=== PATIENT | female | born 1995 | race Caucasian/White ===

== ENCOUNTER 2025-06-22 10:33 | Outpatient (OUT) | payer OTHER, SELFPAY ==
[2025-06-22 11:54] LABS: Hematocrit 37.2 % (36.0-48.0); Hemoglobin 12.9 g/dL (12.0-16.0); Immature Granulocytes Abs Auto 0.04 10^3/uL (0.00-0.03); Immature Granulocytes Pct Auto 0.5 % (0.0-0.5); Lymphocytes Absolute Auto 1.8 10^3/uL (1.2-3.8); Mean Corpuscular HGB Conc 34.7 g/dL (29.9-35.2); Mean Corpuscular Hemoglobin 32.6 pg (26.7-34.0); Mean Corpuscular Volume 93.9 fL (81.0-99.0); Platelet Count 205 10^3/uL (150-450); Red Blood Count 3.96 10^6/uL (4.20-5.40); White Blood Count 7.6 10^3/uL (4.0-11.0)
[2025-06-22 12:34] LABS: Glucose 1 Hour 144 mg/dL (<130); Thyroid Stimulating Hormone 0.871 uIU/mL (0.358-3.740)
== END 2025-06-22 10:34 | disposition home or self-care (01) ==
LOC: LAB 10:39
PROVIDERS: Visit Provider Obstetrics & Gynecology
DX: T14.8XXA Other injury of unspecified body region, initial encounter (principal); Z13.1 Encounter for screening for diabetes mellitus
CPT/HCPCS: 36415; 82950; 84439; 84443; 85025

== ENCOUNTER 2025-06-28 09:33 | Outpatient (OUT) | payer OTHER, SELFPAY ==
--- OUTSIDE RECORDS SUMMARY | 2025-06-06 10:10 | XMS_ITS | Encounter Summary ---
Author Organization [facility] Address [address] [place] [address] Care Team Providers Care Acid Purification Equipment Operator Name Role Phone María Scales MD Primary Care Provider [phone] Heydi Meyer MD, IBCLC Unavailable [phone] Reason for Visit * Reason Comments Routine Visit Encounter Details Date Type Department Care Team ([facility] Contact Info) Description 06/06/2025 10:10 AM EDT Routine [facility] [address] [facility] [place] [phone] Diza Mathis DO [address] [facility] [place] [address] 22 weeks gestation of ([facility]); Second trimester ([facility]); Diabetes mellitus screening Social History Tobacco Use Types Packs/Day Years Used Date Smoking Tobacco: Never Smokeless Tobacco: Never Alcohol Use Standard Drinks/Week Comments Never 0 (1 standard drink = 0.6 oz pur e alcohol) caffeine intake : none Estimated Date of Delivery Comme nts Yes 10/08/2025 Based on last me nstrual period of 01/01/2025 Sex and Gender Information Value Date Recorded Sex Assigned at Not on file Legal Sex Female 7:39 PM EDT Gender Identity Female 01/07/2023 7:39 PM EDT Sexual Orientation Not on file documented as of this encounter Last Filed Vital Signs Vital Sign Reading Time Taken Comments Blood Pressure 120/70 06/06/2025 10:37 AM EDT Pulse - - Temperature - - Respiratory Rate - - Oxygen Saturation - - Inhaled Oxygen Concentration - - Weight 68.2 kg (150 lb 6.4 oz) 06/06/2025 10:37 AM EDT Height - - Body Mass Index 25.82 03/13/2025 2:47 PM EDT documented in this encounter Progress Notes * Sara Valentino LPN - 06/06/2025 10:10 AM EDT Reason for Appointment: Patient ID: Rajani Callejas is a 29 y.o. female who presents for Routine Visit Patient presents today for Return OB appointment. MEDICATIONS Current Outpatient Medications Medication Instructions Vit-Fe Fumarate-FA ( Vitamins) 28-0.8 MG tablet 1 tablet, Oral, Daily ALLERGIES Allergies Allergen Reactions Cephalexin Swelling and Anaphylaxis Throat swells up Other Reaction(s): face swelling, Swelling of Lip/Tongue/Throat, Swelling of Lip/Tongue/Throat, anaphylaxis, Unknown Cefazolin Swelling Other Reaction(s): Swelling Corylus Hives Metronidazole Headache PROBLEMS Active Ambulatory Problems Diagnosis Date Noted Anovulation 07/21/2023 Anxiety and depression 07/21/2023 Anxiety disorder, unspecified 07/21/2023 ADAL (generalized anxiety disorder) 07/21/2023 ADHD (attention deficit hyperactivity disorder), inattentive type 07/21/2023 Attention deficit hyperactivity disorder (ADHD), combined type 07/21/2023 Dysmenorrhea 07/21/2023 Endometriosis 07/21/2023 Female infertility associated with anovulation 07/21/2023 Fibrocystic breast, right 07/21/2023 Heavy menstrual bleeding 07/21/2023 Intranasal mass 07/21/2023 Major depressive disorder, single episode, unspecified 07/21/2023 Migraine with aura 07/01/2022 Migraine without aura and without status migrainosus, not intractable 07/21/2023 Moderate episode of recurrent major depressive disorder (HCC) 07/21/2023 Nasal granuloma 07/21/2023 Palpitations 07/01/2022 Post-operative nausea and vomiting 07/01/2022 Raynaud's phenomenon without gangrene 07/21/2023 Psychophysiological insomnia 10/12/2023 MARCIO (obstructive sleep apnea) 06/06/2024 Resolved Ambulatory Problems Diagnosis Date Noted No Resolved Ambulatory Problems Past Medical History: Diagnosis Date ADHD (attention deficit hyperactivity disorder) COVID-19 Varicella zoster HISTORY PAST MEDICAL HISTORY SOCIAL HISTORY Past Medical History: Diagnosis Date ADHD (attention deficit hyperactivity disorder) COVID-19 Endometriosis Varicella zoster Social History Tobacco Use Smoking status: Never Smokeless tobacco: Never Vaping Use Vaping status: Never Used Substance Use Topics Alcohol use: Never Comment: caffeine intake : none Drug use: Never FAMILY HISTORY Family History Problem Relation Name Age of Onset Heart disease Brother 1 brother had heart surgery at age 6 No Known Problems Son Colon cancer Maternal Grandmother Melanoma Maternal Grandfather Heart disease Maternal Grandfather Stroke Maternal Grandfather Cancer Maternal Grandfather Stroke Paternal Grandmother Heart disease Paternal Grandfather Breast cancer Father's Sister 42 SURGICAL HISTORY Past Surgical History: Procedure Laterality Date COLONOSCOPY 2013 CYSTOSCOPY EXCISION 01/30/2021 left intra nasal mass INTRAUTERINE DEVICE INSERTION Mirena LAPAROSCOPY ABDOMEN DIAGNOSTIC endometriosis OTHER SURGICAL HISTORY 2012 elective VAGINAL DELIVERY 2019 WISDOM TOOTH EXTRACTION REVIEW OF SYSTEMS Review of Systems: Review of Systems Constitutional: Negative. HENT: Negative. Eyes: Negative. Respiratory: Negative. Cardiovascular: Negative. Gastrointestinal: Negative. Genitourinary: Negative. Musculoskeletal: Negative. Skin: Negative. Neurological: Negative. All other systems reviewed and are negative. Hematological: Negative. Endocrine: Negative. Allergic/Immunologic: Negative. OBJECTIVE Objective: Physical Exam Constitutional: Appearance: Normal appearance. She is well-developed. Cardiovascular: Rate and Rhythm: Normal rate and regular rhythm. Pulmonary: Effort: Pulmonary effort is normal. Breath sounds: Normal breath sounds. Abdominal: General: Bowel sounds are normal. There is no distension. Palpations: Abdomen is soft. Tenderness: There is no abdominal tenderness. There is no guarding or rebound. Musculoskeletal: General: No swelling. Normal range of motion. Right lower leg: No edema. Left lower leg: No edema. Neurological: Mental Status: She is alert and oriented to person, place, and time. Skin: General: Skin is warm and dry. Psychiatric: Mood and Affect: Mood normal. Behavior: Behavior normal. Vitals and nursing note reviewed. Exam conducted with a senior asset manager present. Vitals: Estimated body mass index is 25.82 kg/m?? as calculated from the following: Height as of 03/13/25: 5' 4 . Weight as of this encounter: 150 lb 6.4 oz. BP: 120/70 Patient's last menstrual period was 01/01/2025. ASSESSMENT & PLAN ICD-10-CM 1. 22 weeks gestation [facility] Z3A.22 POCT urinalysis dipstick manually resulted 2. Second trimester ([facility]) Z34.92 POCT urinalysis dipstick manually resulted 3. Diabetes mellitus screening Z13.1 CBC Glucose tolerance, 1 hour CBC Glucose tolerance, 1 hour Patient presents today for a routine obstetrics appointment. Patient is currently 22w2d with a Estimated Date of Delivery: 10/08/25. Pt discussed stressors about weight with . Pt given glucola and cbc orders to have obtained between 24-28 weeks. Pt to return in 4 weeks for scheduled ob appt. Documented by Sara Valentino LPN on behalf of: Diaz Mathis DO documented in this encounter Plan of Treatment Upcoming Encounters Date Type Department Care Team (Late st Contact Info) Description 07/04/2025 10:30 AM EDT Routine [facility] [place] [facility] [address] [facility] [place] [address] Melba Goff PA [address] [facility] [place] [address] 07/17/2025 9:30 AM EDT Office Visit LACY ESQUIVEL [address] SHAINA D [address] [phone] Maame Escobar DO [address] [phone] Scheduled Orders Name Type Priority Associated Diagnoses Orde r Schedule CBC Lab Routine Diabetes mellitus screening Expected: 06/06/2025 (Approximate), Expires: 06/06/2026 Glucose tolerance, 1 hour Lab Routine Diabetes mellitus screening Expected: 06/06/2025 (Approximate), Expires: 06/06/2026 documented as of this encounter Procedures Procedure Name Priority Date/Time Associated Diagnosis Comments POCT URINALYSIS DIPSTICK Routine 06/06/2025 10:42 AM EDT 22 weeks gestation of ([facility]) Second trimester ([facility]) documented in this encounter Results * POCT urinalysis dipstick manually resulted (06/06/2025 10:42 AM EDT) Color, UA Yellow Clarity, UA Clear Glucose, UA Negative Negative - 2000(110) ++++ mg/dL Bilirubin, UA Negative Negative - 4(70) +++ mg/dL Ketones, UA Negative Negative - 160(16) ++++ mg/dL Spec Grav, UA 1.010 1 - 1.03 Blood, UA Negative Negative - 50 Ortega/mcL pH, UA 7.5 5 - 9 Protein, UA Negative Negative - 2000(20) ++++ mg/dL Urobilinogen, UA 1.0 0.2 - 12 mg/dL Leukocytes, UA Negative Negative - 500+++ Fidencio/mcL Nitrite, UA Negative Negative - Positive Urine 06/06/2025 10:4 2 AM EDT Diaz Mathis DO POINT OF CARE TEST ENTER/EDIT OR DERABLES Final Result documented in this encounter Visit Diagnoses Diagnosis 22 weeks gestation of ([facility]) Second trimester ([facility]) state, incidental Diabetes mellitus screening Screening for diabetes mellitus documented in this encounter Care Teams Acid Purification Equipment Operator Relationship Specialty Start Date End Date María Scales MD [address] [place] [address] PCP - General Family Medicine 03/03/23 Heydi Meyer MD, IBCLC [address], [place] [id number] Family Medicine 10/12/23 documented as of this encounter
--- OUTSIDE RECORDS SUMMARY | 2025-06-28 09:42 | XMS_ITS | Encounter Summary ---
Author Organization [facility] Address [address] [facility] [place] [address] Care Team Providers Care Motorized Squad Lieutenant Name Role Phone María Scales MD Primary Care Provider [phone] Heydi Meyer MD, IBCLC Unavailable [phone] Encounter Details Date Type Department Care Team (Late Contact Info) Description 06/27/2025 Telephone [facility] Lonnie ESQUIV[facility] [address] [place] [address] [place] [phone] Kellee Whipple MA Social History Tobacco Use Types Packs/Day Years [...] on file documented as of this encounter Miscellaneous Notes * Telephone Encounter - Kellee Whipple MA - 06/27/2025 9:22 AM EDT Called pt to discuss results. Notified pt of failed 1hr and need for 3hr. Pt states she reviewed results with family member who is a nurse and she had stated the results were normal except for RBC. Notified pt that our threshold for 1hr is 130 and her level came back 144 so we would need additionaltesting to rule out Gestational Diabetes. Also discussed that everything we check for the CBC had come back normal and if she had any additional questions we would need to contact Dr. Mathis. PVU. Order sent to [facility]. documented in this encounter Plan of Treatment Upcoming Encounters Date Type Department Care Team (Late st Contact Info) Description 07/04/2025 10:30 AM EDT Routine [facility] Lonnie [facility]QU[facility] [address] [facility] [place] [phone] Melba Goff PA [address] [facility] [place] [address] 07/17/2025 9:30 AM EDT Office Visit [facility] Clive ESQUIVEL [address] SHAINA D [address] [phone] Maame Escobar DO [address] [phone] Scheduled Orders Name Type Priority Associated Diagnoses Orde r Schedule Glucose tolerance, 3 hours Lab Routine Elevated glucose tolerance test Expected: 06/27/2025 (Approximate), Expires: 06/27/2026 documented as of this encounter Visit Diagnoses Diagnosis Elevated glucose tolerance test Impaired glucose tolerance test documented in this encounter Care Teams Motorized Squad Lieutenant Relationship Specialty Start Date End Date María Scales MD [address] [place], [place] [id number] PCP - General Family Medicine 03/03/23 Heydi Meyer MD, IBCLC [address] [place], [place] [id number] Family Medicine 10/12/23 documented as of this encounter
--- OUTSIDE RECORDS SUMMARY | 2025-06-28 09:42 | XMS_ITS | Clinical Summary ---
Author Organization [facility] Address [address] [place] [id number] Care Team Providers Care Roll Up Guider Operator Name Role Phone María Scales MD Primary Care Provider [phone] Allergies Active Allergy Reactions Criticality Noted Date Comments Cephalexin Swelling 09/07/2017 Throat swells up Medications ASCORBIC ACID/VITAMIN E/BIOTIN (HAIR, SKIN, NAILS WITH BIOTIN ORAL)Indication s:Dysuria Take by mouth once daily. Active levonorgestrel (MIRENA) 20 mcg/24 hours (5 yrs) 52 mg IUD 1 Each by INTRAUTERINE route one time only. Active vitamin B complex (B COMPLEX 1 ORAL) Take by mouth. Active Zinc 50 mg tab Take by mouth. Active omega 4-fmr-dtu-fish oil (FISH OIL) 100-160-1,000 mg cap Take by mouth. Activ e phenazopyridine (PYRIDIUM) 200 mg tablet Take 1 tablet by mouth three times a day as needed. 6 tablet 5 Active Active Problems Problem Noted Date Diagnosed Date Migraine with aura 07/01/2022 Assessment & Plan (07/01/2022 2:02 PM EDT): Assessment: states has migraines 1- 2 times weekly. She was given a PRN medication but cant remember name Palpitations 07/01/2022 Assessment & Plan (07/01/2022 2:45 PM EDT): Assessment: Hx of palpations states had negative cardiac work up at [facility]- records reviewed and scanned Post-operative nausea and vomiting 07/01/2022 Assessment & Plan (07/01/2022 2:03 PM EDT): Assessment: states she vomits after every surgery - request pre-op medications Immunizations Immunization Administration Dates Next Due Haemophilus influenzae b (Hb OC) vaccine, 4-dose series (HIBTITER) 06/02/1997 diphtheria tetanus pertussis (DTaP) vaccine, unspecified formulation 11/25/2001,06/02/1997 diphtheria tetanus pertussis-Haemophilus influenzae b (DTP-Hib) vaccine (TETRAMUNE) 05/10/1996,03/07/1996,1995 hepatitis B (HepB) vaccine, 3-dose series, age 0 yr - 19 yr (ENGERIX B-PEDS, RECOMBIVAX HB-PEDS) 05/10/1996,1995,1995 measles mumps rubella (MMR) vaccine (M-M-R II, PRIORIX) 06/24/2001,11/18/1996 novel influenza (B0Q3-23) va ccine, live, nasal 09/03/2009 poliovirus (IPV) vaccine, in activated (IPOL) 06/24/2001 poliovirus (OPV) vaccine, tr ivalent, live, oral (ORIMUNE) 06/02/1997,05/10/1996,03/07/1996,1995 tetanus diphtheria pertussis (Tdap) vaccine, age 7+ yr (ADACEL, BOOSTRIX) 02/10/2018,02/07/2017 Family History Medical History Relation Comments Anesthesia Problems No Family History Social History Tobacco Use Types Packs/Day Years Used Date Smoking Tobacco: Never Smokeless Tobacco: Never Tobacco Cessation:Counseling Given: Not Answered Alcohol Use Standard Drinks/Week Comments Yes 0 (1 standard drink = 0.6 oz pure alcohol) twice weekly; 2-3 drinks per sitting. Area Deprivation Index Answer Date Charles rded National Score (1-100), lower number is lower ri sk 57 11/14/2024 State Score (1-10), lower number is lower risk 3 11/14/2024 Data from: https://www.neighborhoodatlas.medicine.[facility].edu/. Last address used for calculation [address] 11/14/2024 Comments No Sex and Gender Information Value Date Recorded Sex Assigned at Not on file Legal Sex Female 2:56 PM EST Gender Identity Not on file Sexual Orientation Not on file Last Filed Vital Signs Vital Sign Reading Time Taken Comments Blood Pressure 126/71 11/10/2024 1:59 PM EST Pulse 79 11/10/2024 1:59 PM EST Temperature 37.1 C (98.8 F) 11/10/2024 1:59 PM EST Respiratory Rate 18 11/10/2024 1:59 PM EST Oxygen Saturation 100% 11/10/2024 1:59 PM EST Inhaled Oxygen Concentration - - Weight 58.1 kg (128 lb) 07/01/2022 1:36 PM EDT Height 162.6 cm (5' 4 ) 07/01/2022 1:36 PM EDT Body Mass Index 21.97 07/01/2022 1:36 PM EDT Plan of Treatment Health Maintenance Due Date Last Done Comments Anxiety Screening 2013 Depression Screening 2013 HIV Screening 2013 Hepatitis C Screening 2013 Cervical Cancer Screening 2016 HPV Vaccine (1 - 3-dose SCDM series) 2022 Influenza Vaccine (#1) 2025 09/03/2009 DTaP,Tdap,Td Vaccine (8 - Td or Tdap) 02/11/2028 02/10/2018, 02/07/2017, 11/25/2001, Additional history exists Hepatitis B Vaccine Completed 05/10/1996, 1995, 1995 Insurance [employer]ICAID [facility] CHOICE PLUS Care Teams Roll Up Guider Operator Relationship Specialty Start Date End Date María Scales MD [address] [place] [address] PCP - General Family Medicine 07/01/22
--- OUTSIDE RECORDS SUMMARY | 2025-06-28 09:42 | XMS_ITS | Encounter Summary ---
Author Organization [facility] Address [address] [facility] [place] [address] Care Team Providers Care Court Recorder Name Role Phone María Scales MD Primary Care Provider [phone] Heydi Meyer MD, IBCLC Unavailable + [phone] Encounter Details Date Type Department Care Team (Late Contact Info) Description 10/28/2024 Abstract [facility] Medicine [address] [place] [phone] Ania Oneil, SWATHI [address] [place] [address] Social History Tobacco Use Types Packs/Day Years Used Date Smoking Tobacco: Never Smokeless Tobacco: Never Alcohol Use Standard Drinks/Week Comments Never 0 (1 standard drink = 0.6 oz pur e alcohol) caffeine intake : none Comments No Sex and Gender Information Value Date Recorded Sex Assigned at Not on file Legal Sex Female 7:39 PM EDT Gender Identity Female 01/07/2023 7:39 PM EDT Sexual Orientation Not on file documented as of this encounter Plan of Treatment Upcoming Encounters Date Type Department Care Team (Late Contact Info) Description 07/04/2025 10:30 AM EDT Routine [facility] [address] [place] [address] Melba Goff PA [address] [facility] [place] [address] 07/17/2025 9:30 AM EDT Office Visit [facility] [address] [phone] Maame Escobar, DO [address] [facility] [address] [place] [phone] documented as of this encounter Visit Diagnoses Not on filedocumented in this encounter Care Teams Court Recorder Relationship Specialty Start Date End Date María Scales MD [address] [place] [address] PCP - General Family Medicine 03/03/23 Heydi Meyer MD, IBCLC [address] [place] [address] Family Medicine 10/12/23 documented as of this encounter
--- OUTSIDE RECORDS SUMMARY | 2025-06-28 09:42 | XMS_ITS | Encounter Summary ---
Author Organization [facility] Address [address] [place] [address] Care Team Providers Care Perfect Binder Setter Name Role Phone Beckie Veras Jovany MODEL AND PATTERN SUPERVISOR Unavailable [phone] María Scales MD Primary Care Provider [phone] Heydi Meyer MD, IBCLC Unavailable + [phone] Encounter Details Date Type Department Care Team (Late Contact Info) Description 06/03/2023 Abstract [facility] [address] [facility] [address] [facility] [address] [place] [phone] Maame Escobar, DO [address] [phone] Social History Tobacco Use Types Packs/Day Years Used Date Smoking Tobacco: Never Smokeless Tobacco: Never Tobacco Cessation:Counseling Given: Not Answered Alcohol Use Standard Drinks/Week Comments Never 0 (1 standard drink = 0.6 oz pur e alcohol) caffeine intake : none Comments Unknown Sex and Gender Information Value Date Recorded Sex Assigned at Not on file Legal Sex Female 7:39 PM EDT Gender Identity Female 01/07/2023 7:39 PM EDT Sexual Orientation Not on file documented as of this encounter Plan of Treatment Upcoming Encounters Date Type Department Care Team (Late Contact Info) Description 07/04/2025 10:30 AM EDT Routine [facility] [address] [facility] [place] [phone] Melba Goff PA [address] [facility] [address] [place], [place] [id number] 07/17/2025 9:30 AM EDT Office Visit [facility] [address] SHAINA D [address] [address] Maame Escobar DO [address] [phone] documented as of this encounter Visit Diagnoses Not on filedocumented in this encounter Care Teams Perfect Binder Setter Relationship Specialty Start Date End Date Beckie Veras, SWATHI [address] [place] [address] PCP - [facility] 01/24/23 4 María Scales MD [address] [place] [address] PCP - General Family Medicine 03/03/23 Heydi Meyer MD, IBCLC [address] [place] [address] Family Medicine 10/12/23 documented as of this encounter
--- OUTSIDE RECORDS SUMMARY | 2025-06-28 09:42 | XMS_ITS | Encounter Summary ---
Author Organization [facility] Address [address] [place] [address] Care Team Providers Care Assorter Laundry Name Role Phone María Scales MD Primary Care Provider [phone] Heydi Meyer MD, IBCLC Unavailable + [phone] Encounter Details Date Type Department Care Team (Late Contact Info) Description 06/09/2024 Abstract [facility] Medicine [address] [place] [phone] Ania Oneil, SWATHI [address] [place] [address] Social History Tobacco Use Types [...] AM EDT Routine [facility] [address] [facility] [place] [address] Melba Goff PA [address] [facility] [place] [address] 07/17/2025 9:30 AM EDT Office Visit [facility] [address] [phone] Maame Escobar, DO [address] [facility] [address] [place] [phone] documented as of this encounter Visit Diagnoses Not on filedocumented in this encounter Care Teams Assorter Laundry Relationship Specialty Start Date End Date María Scales MD [address] [place] [address] PCP - General Family Medicine 03/03/23 Heydi Meyer MD, IBCLC [address] [place] [address] Family Medicine 10/12/23 documented as of this encounter
--- OUTSIDE RECORDS SUMMARY | 2025-06-28 09:42 | XMS_ITS | Encounter Summary ---
Author Organization [facility] Address [address] [facility] [place] [address] Care Team Providers Care Jitterbug Operator Name Role Phone María Scales MD Primary Care Provider + [phone] Heydi Meyer MD, IBCLC Unavailable + [phone] Encounter Details Date Type Department Care Team (Late Contact Info) Description 06/20/2025 Telephone [facility] [address] [place] [address] Diaz Mathis DO [address] [place], [place] [phone] Social History Tobacco Use Types Packs/Day Years [...] encounter Miscellaneous Notes * Telephone Encounter - Carolyn Dawson LPN - 06/20/2025 10:50 AM EDT Per provider he would like the patient to have labs obtained for CBC, TSH and Free T4. Patient was made aware of this and these were sent to [facility] in new orders. * Telephone Encounter - Carolyn Dawson LPN - 06/20/2025 10:09 AM EDT I am currently 6 months and my next appointment is not until the 9 at 1030, but I wantedto call just because I have some concerns I have I have some bruising on the back of my thighs, like Big purple bruises on both legs and kind of the same pattern in shape. And I am just kind of confused as to what it is or if I need medical attention. If you could give me a call back, that would be great for numbers [phone]. Thanks. Patient call returned and she states that she did notice this yesterday these are right under butt cheeks and there is no pain, swelling or redness around around but she does have numbness and tingling in left arm and leg. Patient was advised would get with and return her call she does have CBC and 1 hour glucose test this week. documented in this encounter Plan of Treatment Upcoming Encounters Date Type Department Care Team (Late st Contact Info) Description 07/04/2025 10:30 AM EDT Routine [facility] [address] [facility] [place] [phone] Melba Goff PA [address] [facility] [place] [address] 07/17/2025 9:30 AM EDT Office Visit [facility] [address] SHAINA Sofia [address] [phone] Maame Escobar DO [address] [phone] Scheduled Orders Name Type Priority Associated Diagnoses Orde r Schedule CBC and differential Lab Routine Bruising Expected: 06/20/2025 (Approximate), Expires: 06/20/2026 TSH Lab Routine Bruising Expected: 06/20/2025 (Approximate), Expires: 06/20/2026 T4, free Lab Routine Bruising Expected: 06/20/2025 (Approximate), Expires: 06/20/2026 documented as of this encounter Visit Diagnoses Diagnosis Bruising Contusion of unspecified site documented in this encounter Care Teams Jitterbug Operator Relationship Specialty Start Date End Date María Scales MD [address] [place] [address] PCP - General Family Medicine 03/03/23 Heydi Meyer MD, IBCLC [address] [place] [address] Family Medicine 10/12/23 documented as of this encounter
--- OUTSIDE RECORDS SUMMARY | 2025-06-28 09:42 | XMS_ITS | Encounter Summary ---
Author Organization [facility] Address [address] [facility] [place] [address] Care Team Providers Care Bit Shaver Name Role Phone María Scales MD Primary Care Provider [phone] Heydi Meyer MD, IBCLC Unavailable + [phone] Encounter Details Date Type Department Care Team (Late Contact Info) Description 03/27/2025 Abstract [facility] [address] [facility] [place] [phone] Diaz Mathis DO [address] [facility] [address] [place], [facility] Social History Tobacco Use Types Packs/Day Years [...] 10:30 AM EDT Routine [facility] [address] [place] [phone] Melba Goff PA [address] [facility] [address] [place], [place] [phone] 07/17/2025 9:30 AM EDT Office Visit [facility] [address] SHAINA D [address] [address] Maame Escobar DO [address] [phone] documented as of this encounter Visit Diagnoses Not on filedocumented in this encounter Care Teams Bit Shaver Relationship Specialty Start Date End Date María Scales MD [address] [place] [address] PCP - General Family Medicine 03/03/23 Heydi Meyer MD, IBCLC [address] [place], [place] [phone] Family Medicine 10/12/23 documented as of this encounter
--- OUTSIDE RECORDS SUMMARY | 2025-06-28 09:42 | XMS_ITS | Clinical Summary ---
Author Organization [facility] Address [address] [place] [address] [address] Care Ct Scan Special Procedures Technologist Name Role Phone María Scales MD Primary Care Provider Heydi Meyer MD, IBCLC Unavailable [phone] Allergies Active Allergy Reactions Criticality Noted Date Comments Cefazolin Swelling 06/03/2023 Other Reaction(s): Swelling Cephalexin Swelling,Anaphylaxis High 09/06/2017 Throat swells up Other Reaction(s): face swelling, Swelling of Lip/Tongue/Throat, Swelling of Lip/Tongue/Throat, anaphylaxis, Unknown Corylus Hives 02/15/2024 Metronidazole Headache 04/14/2025 Medications Vit-Fe Fumarate-FA ( Vitamins) 28-0.8 MG tabletIndication s:, unspecified gestational age ([facility]) Take 1 tablet by mouth Daily 30 tablet 11 05/08/2025 Active Active Problems Problem Noted Date Diagnosed Date MARCIO (obstructive sleep apnea) 06/06/2024 Psychophysiological insomnia 10/12/2023 Assessment & Plan (10/12/2023 12:51 PM EST): Likely secondary to anxiety and panic disorder. See below. We did review sleep hygiene and supplements that may help with insomnia, including magnesium, melatonin, Ashwaganda. No clinical sign of obstructive sleep apnea Anovulation 07/21/2023 Anxiety and depression 07/21/2023 Anxiety disorder, unspecified 07/21/2023 ADAL (generalized anxiety disorder) 07/21/2023 Assessment & Plan (10/12/2023 12:49 PM EST): Uncontrolled. Patient is most bothered by panic attacks which occur 3-4 times per month. Also with concern about insomnia, which occurs in spurts and last about a week out of the month. We discussed treatment options, including a daily SSRI to help control symptoms versus a p.r.n. anxiolytic to dissipate you panic attacks and to help with sleep when needed. Patient elects this latter approach. We discussed options of hydroxyzine versus benzodiazepine, and given its safety profile, we agreed to try hydroxyzine. We discussed the risks and benefits of this medication, appropriate use of frequency, and potential side effects. Patient would like to try this. Rx sent. Encouraged her to follow-up in 2-3 wants to evaluate response. If symptoms occur more frequently, may need to reconsider controller medication ADHD (attention deficit hype ractivity disorder), inattentive type 07/21/2023 Attention deficit hyperactiv ity disorder (ADHD), combined type 07/21/2023 Dysmenorrhea 07/21/2023 Endometriosis 07/21/2023 Female infertility associated with anovulation 0 07/21/2023 Fibrocystic breast, right 07/21/2023 Heavy menstrual bleeding 07/21/2023 Intranasal mass 07/21/2023 Major depressive disorder, single episode, unspe cified 07/21/2023 Migraine without aura and wi thout status migrainosus, not intractable 07/21/2023 Moderate episode of recurrent major depressive d isorder 07/21/2023 Nasal granuloma 07/21/2023 Raynaud's phenomenon without gangrene 07/21/2023 Migraine with aura 07/01/2022 Overview (07/21/2023): Last Assessment & Plan: Assessment: states has migraines 1- 2 times weekly. She was given a PRN medication but cant remember name Palpitations 07/01/2022 Overview (07/21/2023): Last Assessment & Plan: Assessment: Hx of palpations states [facility] and [facility] Post-operative nausea and vomiting 07/01/2022 Overview (07/21/2023): Last Assessment & Plan: Assessment: states she vomits after every surgery - request pre-op medications Estimated Date of Delivery Comme nts Yes 10/08/2025 Based on last ar nstrual period of 01/01/2025 Encounters Date Type Department Care Team Description 06/27/2025 [place] [address] Kellee Whipple MA 06/22/2025 Clinisync Result Encounter [facility] External Department Unsolicited Diaz Mathis, 06/20/2025 [place] [address] Diaz Mathis, 06/06/2025 10:10 AM ED[place] [address] Diaz Mathis, DO 22 weeks gestation of ([facility]); Second trimester ([facility]); Diabetes mellitus screening 06/06/2025 Bamboo [place] [address] Diaz Mathis, 05/22/2025 1:00 PM EDT Ancillary [place] [address] Screening, , for anatomic survey ([facility]) 05/08/2025 9:40 AM [place] [address] Diaz Mathis, 18 weeks gestation of ([facility]); Second trimester ([facility]); Screening, , for anatomic survey ([facility]); , unspecified gestational age ([facility]) 05/08/2025 Bamboo [place] [place] [address] [place] [address] Diaz Mathis, 04/19/2025 Abstract [facility] SEGOVIAN Marcus [facility] [phone] Diaz Mathis, 04/14/2025 Telephone [facility] Velazquez [facility] [address] Sunita Saunders, NET SOFTWARE ENGINEER 04/12/2025 Telephone [facility] GARAYGYN [place] [phone] Sunita Saunders, NET SOFTWARE ENGINEER 04/10/2025 1:40 PM EDT Routine [facility] [place] [address] Diaz Mathis, Second trimester ([facility]); 14 weeks gestation of ([facility]); Need for maternal serum alpha-protein (MSAFP) screening ([facility]); Exposure to STD 04/10/2025 Abstract [facility] [place] [phone] Diaz Mathis, 04/10/2025 Bamboo flowsheet [facility] [address] [place] [address] Diaz Mathis, from Last 3 Months Immunizations Immunization Administration Dates Next Due DTP / HiB 05/10/1996,03/07/1996,1995 DTaP, Unspecified 11/25/2001,06/02/1997 Hep B, Adolescent or Pediatric 05/10/1996,1995,1995 Hib (HbOC) 06/02/1997 IPV 06/24/2001 MMR 06/24/2001,11/18/1996 Novel [id number], nasal 09/03/2009 OPV 06/02/1997,05/10/1996,03/07/1996 ,1995 Tdap 02/10/2018,02/07/2017 Family History Medical History Relation Name Comments Heart disease Brother 1 brother had heart surgery at age 6 Breast cancer Father's Sister Cancer Maternal Grandfather Heart disease Maternal Grandfather Melanoma Maternal Grandfather Stroke Maternal Grandfather Colon cancer Maternal Grandmother Heart disease Paternal Grandfather Stroke Paternal Grandmother No Known Problems Son Relation Name Status Comments Brother 3 brothers Father Alive Father's Sister Alive Maternal Grandfather Alive Maternal Grandmother Mother Alive Paternal Grandfather Paternal Grandmother Alive Son Alive 2 sons Social History Tobacco Use Types Packs/Day Years [...] PM EDT Sexual Orientation Not on file Last Filed Vital Signs Vital Sign Reading Time Taken Comments Blood Pressure 120/70 06/06/2025 10:37 AM EDT Pulse 80 03/13/2025 2:47 PM EDT Temperature 35.8 C (96.5 F) 03/13/2025 2:47 PM EDT Respiratory Rate 18 03/13/2025 2:47 PM EDT Oxygen Saturation 97% 03/13/2025 2:47 PM EDT Inhaled Oxygen Concentration - - Weight 68.2 kg (150 lb 6.4 oz) 06/06/2025 10:37 AM EDT Height 162.6 cm (5' 4 ) 03/13/2025 2:47 PM EDT Body Mass Index 25.82 03/13/2025 2:47 PM EDT Plan of Treatment Upcoming Encounters Date Type Department Care Team (Late st Contact Info) Description 07/04/2025 10:30 AM EDT Routine [facility] [address] [facility] [phone] Melba Goff PA [address] [place] [address] 07/17/2025 9:30 AM EDT Office Visit [facility] [address] SHAINA D [facility] [address] [place] [phone] Maame Escobar, [address] [facility] [address] [place] [address] Health Maintenance Due Date Last Done Comments Influenza Vaccine (#1) 2025 09/29/2018 Procedures Procedure Name Priority Date/Time Associated Diagnosis Comments ALL THYROXINE (T4) FREE Routine 06/22/2025 11:49 AM EDT ALL THYROID STIM HORMONE Routine 06/22/2025 11:49 AM EDT GLUCOSE 1 HOUR Routine 06/22/2025 11:49 AM EDT ALL CBC WITH AUTO DIFF Routine 06/22/2025 11:49 AM EDT POCT URINALYSIS DIPSTICK Routine 06/06/2025 10:42 AM EDT 22 weeks gestation of ([facility]) Second trimester ([facility]) US OB 14+ WEEKS ANATOMY SCAN Routine 05/22/2025 1:59 PM EDT Screening, , for anatomic survey ([facility]) POCT URINALYSIS DIPSTICK Routine 05/08/2025 10:08 AM EDT 18 weeks gestation of ([facility]) Second trimester ([facility]) RECURRENT VAGINITIS (HTRX) Routine 04/10/2025 4:27 PM EDT POCT URINALYSIS DIPSTICK Routine 04/10/2025 2:26 PM EDT Second trimester ([facility]) from Last 3 Months Results * (ABNORMAL) GLUCOSE 1 HOUR (06/22/2025 11:49 AM EDT) GLUCOSE 1 HOUR 144(H) <130 mg/dL TBH 06/22/2025 11:4 9 AM EDT 06/22/2025 11:52 AM EDT Narrative CLINISYNC - 06/22/2025 12:39 PM EDT Diaz Delfina DO LAB BLOOD ORDERABLES Final Resul t [facility] * ALL THYROXINE (T4) FREE (06/22/2025 11:49 AM EDT) FREE T4 0.85 0.76 - 1.46 ng/dL TB 06/22/2025 11:4 9 AM EDT 06/22/2025 11:52 AM EDT Narrative CLINISYNC - 06/22/2025 1:07 PM EDT Diaz Delfina DO CLINISYNC Final Result Performing Organization Address [facility] Co de Phone Number [facility] * ALL THYROID STIM HORMONE (06/22/2025 11:49 AM EDT) THYROID STIMULATING HORMONE 0.871 0.358 - 3.740 uIU/mL TB 06/22/2025 11:4 9 AM EDT 06/22/2025 11:52 AM EDT Narrative CLINISYNC - 06/22/2025 12:39 PM EDT Diaz Delfina DO CLINISYNC Final Result Performing Organization Address [facility] Co de Phone Number [facility] * (ABNORMAL) ALL CBC WITH AUTO DIFF (06/22/2025 11:49 AM EDT) TB WBC 7.6 4.0 - 11.0 10 3/uL TB TB RBC 3.96(L) 4.20 - 5.40 10 6/uL TBH TBH HGB 12.9 12.0 - 16.0 g/dL TBH TBH HCT 37.2 36.0 - 48.0 % TBH TBH MCV 93.9 81.0 - 99.0 fL TBH TBH MCH 32.6 26.7 - 34.0 pg TBH TBH MCHC 34.7 29.9 - 35.2 g/dL TBH TBH RDW 12.6 11.0 - 15.0 % TBH TBH PLT 205 150 - 450 10 3/uL TBH TBH MPV 8.8(L) 9.5 - 13.5 fL TBH NEUTROPHILS PERCENT AUTO 69.1 43.0 - 75.0 % TBH LYMPHOCYTES PERCENT AUTO 23.6 20.5 - 60.0 % TBH MONOCYTES PERCENT AUTO 4.9 1.7 - 12.0 % TBH TBH EO % 1.6 0.9 - 7.0 % TBH BASOPHILS PERCENT AUTO 0.3 0.2 - 2.0 % TBH IMMATURE GRANULOCYTES PCT AUTO 0.5 0.0 - 0.5 % TBH NEUTROPHILS ABSOLUTE AUTO 5.3 1.4 - 6.5 10 3/uL TBH LYMPHOCYTES ABSOLUTE AUTO 1.8 1.2 - 3.8 10 3/uL TBH MONOCYTES ABSOLUTE AUTO 0.4 0.3 - 0.8 10 3/uL TBH TBH EO # 0.1 0.0 - 0.7 10 3/uL TBH BASOPHILS ABSOLUTE AUTO 0.0 0.0 - 0.1 10 3/uL TBH IMMATURE GRANULOCYTES ABS AUTO 0.04(H) 0.00 - 0.03 10 3/uL TBH 06/22/2025 11:4 9 AM EDT 06/22/2025 11:52 AM EDT Narrative CLINISYNC - 06/22/2025 12:02 PM EDT us Diaz Mathis DO CLINISYNC Final Result [facility] * POCT urinalysis dipstick manually resulted (06/06/2025 10:42 AM EDT) Only the most recent of3 resultswithin the time period is included. Color, UA Yellow Clarity, UA Clear Glucose, UA Negative Negative - 1999(110) ++++ mg/dL Bilirubin, UA Negative Negative - 4(70) +++ mg/dL Ketones, UA Negative Negative - 160(16) ++++ mg/dL Spec Grav, UA 1.010 1 - 1.03 Blood, UA Negative Negative - 50 Ortega/mcL pH, UA 7.5 5 - 9 Protein, UA Negative Negative - 1999(20) ++++ mg/dL Urobilinogen, UA 1.0 0.2 - 12 mg/dL Leukocytes, UA Negative Negative - 500+++ Fidencio/mcL Nitrite, UA Negative Negative - Positive Urine 06/06/2025 10:4 2 AM EDT us Diaz Delfina DO POINT OF CARE TEST ENTER/EDIT OR DERABLES Final Result * US OB 14+ weeks anatomy scan (05/22/2025 1:59 PM EDT) Anatomical Region Laterality Modality Body Ultrasound 05/22/2025 11:4 3 PM EDT Narrative 05/22/2025 11:43 PM EDT EXAM: US OB 14+ WEEKS ANATOMY SCAN HISTORY: anatomy. COMPARISON: Ob ultrasound 03/09/2025. TECHNIQUE: Two-dimensional transabdominal grayscale ultrasound imaging of the pelvis was performed. FINDINGS: Gestation: Single Presentation: Breech Cardiac Activity: Present Placental Location: Anterior with no sonographic abnormalities identified. Distance from Placental Tip to Cervix: 7.0 cm Cervical Length: 4.9 cm Amniotic Fluid: Appears adequate MEASUREMENTS: BPD: 4.8 cm EGA: 20 weeks 4 days HC: 17.9 cm EGA: 20 weeks 2 days AC: 15.5 cm EGA: 20 weeks 5 days FL: 3.4 cm EGA: 20 weeks 5 days HC/AC Ratio: 1.15 The gestational age by today's ultrasound is 20 weeks 4 days (+/- 10 days gestation). Estimated Weight: 367 grams, +/- 55 grams ( 0 lb 13 oz). Weight Percentile for gestational age: 73 % ANATOMY C-Spine: Unremarkable T-Spine: Unremarkable L-Spine: Unremarkable Sacrum: Unremarkable Four Chamber Heart: Unremarkable LVOT: Unremarkable RVOT: Unremarkable Stomach: Unremarkable Kidneys: Unremarkable Bladder: Unremarkable Diaphragm: Unremarkable Cord insertion: Unremarkable Cord vessels: Three Lateral Ventricles: Unremarkable Cerebellum: Unremarkable Cisterna Magna: Unremarkable Posterior Fossa: Unremarkable Right Femur: Unremarkable Left Femur: Unremarkable Right Tib/Fib: Unremarkable Left Tib/Fib: Unremarkable Right Rad/Ulnar: Unremarkable Left Rad/Ulnar: Unremarkable Right Humerus: Unremarkable Left Humerus: Unremarkable Nose/Lips: Unremarkable Profile: Unremarkable Orbits: Unremarkable IMPRESSION: 1. Single, live intrauterine gestation 20 weeks, 1 days by LMP. Today's ultrasound measurements correlate with a gestational age of 20 weeks 4 days. Estimated weight is 367 grams, +/- 55 grams ( 0 lb 13 oz) which correlates to 73 %. RONALD by today's ultrasound is 10/05/2025. 2. Unremarkable ultrasound of the anatomy. Interpreted by: Electronically signed by STEPHANE PENA II, MD, PHD at 22-May-2025 11:42:47 PM [facility] Procedure Note Stephane Pena MD - 05/22/2025 EXAM: US OB 14+ WEEKS ANATOMY SCAN HISTORY: anatomy. COMPARISON: Ob ultrasound 03/09/2025. TECHNIQUE: Two-dimensional transabdominal grayscale ultrasound imaging ofthe pelvis was performed. FINDINGS: Gestation: Single Presentation: Breech Cardiac Activity: Present Placental Location: Anterior with no sonographic abnormalitiesidentified. Distance from Placental Tip to Cervix: 7.0 cm Cervical Length: 4.9 cm Amniotic Fluid: Appears adequate MEASUREMENTS: BPD: 4.8 cm EGA: 20 weeks 4 days HC: 17.9 cm EGA: 20 weeks 2 days AC: 15.5 cm EGA: 20 weeks 5 days FL: 3.4 cm EGA: 20 weeks 5 days HC/AC Ratio: 1.15 The gestational age by today's ultrasound is 20 weeks 4 days (+/- 10 daysgestation). Estimated Weight: 367 grams, +/- 55 grams ( 0 lb 13 oz). Weight Percentile for gestational age: 73 % ANATOMY C-Spine: Unremarkable T-Spine: Unremarkable L-Spine: Unremarkable Sacrum: Unremarkable Four Chamber Heart: Unremarkable LVOT: Unremarkable RVOT: Unremarkable Stomach: Unremarkable Kidneys: Unremarkable Bladder: Unremarkable Diaphragm: Unremarkable Cord insertion: Unremarkable Cord vessels: Three Lateral Ventricles: Unremarkable Cerebellum: Unremarkable Cisterna Magna: Unremarkable Posterior Fossa: Unremarkable Right Femur: Unremarkable Left Femur: Unremarkable Right Tib/Fib: Unremarkable Left Tib/Fib: Unremarkable Right Rad/Ulnar: Unremarkable Left Rad/Ulnar: Unremarkable Right Humerus: Unremarkable Left Humerus: Unremarkable Nose/Lips: Unremarkable Profile: Unremarkable Orbits: Unremarkable IMPRESSION: 1. Single, live intrauterine gestation 20 weeks, 1 days by LMP. Today'sultrasound measurements correlate with a gestational age of 20 weeks 4days. Estimated weight is 367 grams, +/- 55 grams ( 0 lb 13 oz)which correlates to 73 %. RONALD by today's ultrasound is 10/05/2025. 2. Unremarkable ultrasound of the anatomy. Interpreted by: Electronically signed by STEPHANE PENA II, MD, PHD 11:42:47 PM [facility] us Diaz Delfina DO IMG OB US PROCEDURES Final Resul t * (ABNORMAL) RECURRENT VAGINITIS (HTRX) (04/10/2025 4:27 PM EDT) ATOPOBIUM VAGINAE 0 19.961 - 24.689 ppm 04/12/2025 6:23 AM EDT [facility] ATOPOBIUM VAGINAE Not Detected 19.961 - 24.689 ppm 04/12/2025 6:23 AM EDT [facility] BVAB 2,3 (BACTERIAL VAGINOSIS ASSOCIATED BACTERIA 2, 3); MOBILUNCUS SPP 0 19.961 - 24.689 ppm 04/12/2025 6:23 AM EDT [facility] BVAB 2,3 (BACTERIAL VAGINOSIS ASSOCIATED BACTERIA 2, 3); MOBILUNCUS SPP Not Detected 19.961 - 24.689 ppm 04/12/2025 6:23 AM EDT [facility] ROSARIO ALBICANS, PARAPSILOSIS, TROPICALIS 0 19.961 - 30.770 ppm 04/12/2025 6:23 AM EDT [facility] ROSARIO ALBICANS, PARAPSILOSIS, TROPICALIS Not Detected 19.961 - 30.770 ppm 04/12/2025 6:23 AM EDT [facility] ROSARIO GLABRATA 0 23.000 - 32.138 ppm 04/12/2025 6:23 AM EDT [facility] ROSARIO GLABRATA Not Detected 23.000 - 32.138 ppm 04/12/2025 6:23 AM EDT [facility] ROSARIO KRUSEI 0 23.000 - 32.271 ppm 04/12/2025 6:23 AM EDT [facility] ROSARIO KRUSEI Not Detected 23.000 - 32.271 ppm 04/12/2025 6:23 AM EDT [facility] CHLAMYDIA TRACHOMATIS 0 23.000 - 31.467 ppm 04/12/2025 6:23 AM EDT [facility] CHLAMYDIA TRACHOMATIS Not Detected 23.000 - 31.467 ppm 04/12/2025 6:23 AM EDT [facility] GARDNERELLA VAGINALIS 19.938(A) 19.961 - 24.689 ppm 04/12/2025 6:23 AM EDT [facility] GARDNERELLA VAGINALIS Detected(A) 19.961 - 24.689 ppm 04/12/2025 6:23 AM EDT [facility] MEGASPHAERA (TYPES 1, 2) 0 19.961 - 24.689 ppm 04/12/2025 6:23 AM EDT [facility] MEGASPHAERA (TYPES 1, 2) Not Detected 19.961 - 24.689 ppm 04/12/2025 6:23 AM EDT [facility] NEISSERIA GONORRHOEAE 0 23.000 - 32.117 ppm 04/12/2025 6:23 AM EDT [facility] NEISSERIA GONORRHOEAE Not Detected 23.000 - 32.117 ppm 04/12/2025 6:23 AM EDT [facility] TRICHOMONAS VAGINALIS 0 23.000 - 32.119 ppm 04/12/2025 6:23 AM EDT [facility] TRICHOMONAS VAGINALIS Not Detected 23.000 - 32.119 ppm 04/12/2025 6:23 AM EDT [facility] MYCOPLASMA GENITALIUM 0 19.961 - 24.689 ppm 04/12/2025 6:23 AM EDT [facility] MYCOPLASMA GENITALIUM Not Detected 19.961 - 24.689 ppm 04/12/2025 6:23 AM EDT [facility] ERMB, C; MEFA 23.751(A) 23.000 - 27.611 ppm 04/12/2025 6:23 AM EDT [facility] ERMB, C; MEFA Detected(A) 23.000 - 27.611 ppm 04/12/2025 6:23 AM EDT [facility] TET B, TET M 23.047(A) 23.000 - 27.778 ppm 04/12/2025 6:23 AM EDT [facility] TET B, TET M Detected(A) 23.000 - 27.778 ppm 04/12/2025 6:23 AM EDT [facility] Tissue 04/10/2025 4:27 PM EDT 04/12/2025 1:19 AM EDT us Diaz Mathis DO LAB BLOOD ORDERABLES Final Resul t [facility] [address] [place] [address] from Last 3 Months Insurance [facility] Care Teams Ct Scan Special Procedures Technologist Relationship Specialty Start Date End Date María Scales MD [address] [place], [place] [id number] PCP - General Family Medicine 03/03/23 Heydi Meyer MD, IBCLC [address] [place] [address] Family Medicine 10/12/23
--- OUTSIDE RECORDS SUMMARY | 2025-06-28 09:42 | XMS_ITS | Patient Health Record ---
Author Organization [facility] Address [address] [place] [address] Care Team Providers Care Rotary Adjuster Name Role Phone María Scales Primary Care Provider Luis Alberto deluca Amanda Awad Isaias Allergies Allergen (clinical drug ingredient) Drug/Non Drug Allergy documented on EMR Reaction Allergy Type Onset Date Status cephalexin Cephalexin face swelling Drug Allergy A ctive Results Component Value Reference Range Notes Urine Culture and Sensitivit y Reviewed date:10/31/2024 08:11:05 AM Interpretation:Abnormal Performing Lab:QPT, [facility]-[address], [address] [place], [place] [address] Reggie Morgan MD Notes/Report: 0 Received Date: [id number] CULTURE, URINE, ROUTINE SEE NOTE CULTURE, URINE, ROUTINE Micro Number: [id number] Test Status: Final Specimen Source: Urine, clean catch Specimen Quality: Adequate Result: 1,000-9,000 CFU/ML of Group B Streptococcus isolated Beta-hemolytic streptococci are predictably susceptible to Penicillin and other beta-lactams. Susceptibility testing not routinely performed. Please contact the laboratory within 3 days if susceptibility testing is desired. Comment: Erythromycin and clindamycin are not recommended for treatment of urinary tract infections, but clindamycin may be useful for treatment of rectovaginal colonization or infection. Any amount of group B Streptococcus in urine specimens obtained from females is a marker of genital tract colonization. If this patient is , please refer to ACOG guidelines for appropriate screening and management of women. Urinalysis (IH) Reviewed date:10/28/2024 02:48:45 PM Interpretation:Negative Performing Lab: Notes/Report: Negative Blood Non-Hemolyzed negative negative - c a. 250 Ortega/ml Urobili normal normal - 12 mg/dL Bili negative negative - large Protein negative negative - 500 mg/dL Nitrites negative negative - positive Ketone negative negative - large mg/dL Ascorbic Acid ++ trace - large Glucose negative negative - > 1000 mg/dL pH 5 5.0 - 9.0 Spec. Gr. 1.005 1.000 - 1.030 LEUK negative negative - ca. 5 00 Fidencio/ml Reason For Referral No Information Medications Medication SIG (Take, Route, Frequency, Duration) Notes Start Date End Date Status Vitamin B-12 Active Mirena (52 MG) 20 MCG/DAY as directed Intrauterine Active Fish Oil Active Immunizations Vaccine Route Administration Date Status Comme nts Flu Vaccine (Given in Past) Unspecified Unknown 09/29/2018 Administered vaccinated for 2017 [id number] Quad PFS (0.5mL Admin) 18 y/o & older Unknown 11/13/2020 Others Social History Tobacco Use: Social History Observation Description Date Details (start date - stop date) Never Smoker NA - NA Tobacco Use Question Answer Notes Are you a Never smoker Tobacco Control (Standard) Question Answer Notes Tobacco use: Nonsmoker Problems Problem Type SNOMED Code ICD Code Onset Dates Problem Status W/U Status Risk Notes Diagnosis Streptococcal sore throat (disorder) (98612251) Strep pharyngitis (J02.0) Active confirmed Problem Irritable bowel syndrome (03432086) IBS (irritable bowel syndrome) (K58.9) Active confirmed Problem Endometriosis (783996428) Endometriosis (N80.9) Active confirmed Problem History of respiratory disease (070238371) History of strep pharyngitis (Z87.09) Active confirmed Problem Exercise-induced asthma (43628625) Asthma, exercise induced (J45.990) Active confirmed Vital Signs Temperature 98.1 degrees Fahrenheit 10/28/2024 Respiratory Rate 16 /min 10/28/2024 Blood pressure diastolic 79 mm Hg 10/28/2024 Height 67 in 10/28/2024 Blood pressure systolic 119 mm Hg 10/28/2024 Weight 134 lbs 10/28/2024 BMI 20.99 kg/m2 10/28/2024 Encounters Encounter Location Date Provider Diagnosis [address] [place] [address] 10/28/2024 Amanda Posadas Acute UTI N39.0 ; Acute vaginitis N76.0 ; Other specified bacterial agents as the cause of diseases classified elsewhere B96.89 ; Vaginal discharge N89.8 and Influenza vaccination declined Z28.21 Assessments Encounter Date Diagnosis (ICD Code) Assessment Notes Treatment Notes Treatment Clinical Notes Section Notes 10/28/2024 Acute UTI (ICD-10 - N39.0) Urinary Tract Infection (UTI) in Women: Care Instructions material was published, Female Urinary Tract: Anatomy Sketch material was published Complete the entire course of antibiotics as prescribed, even when symptoms have improved, to prevent a relapse of infection and the development of antibiotic resistance. Follow up in the clinic or with PCP in 4-5 days if no improvement or worsening of symptoms. Specimen will be sent to outside lab and patient will receive third constitution party bill from laboratory. Patient verbalized understanding and agrees to plan of care. A urinary tract infection (UTI) is an infection caused by bacteria. It can happen anywhere in the urinary tract. A UTI can happen in the: Kidneys. Ureters, the tubes that connect the kidneys to the bladder. Bladder. Urethra, where the urine comes out. Most UTIs are bladder infections. They often cause pain or burning when you urinate. Most UTIs can be cured with antibiotics. If you are prescribed antibiotics, be sure to complete your treatment so that the infection does not get worse. Follow-up care is a galicia part of your treatment and safety. Be sure to make and go to all appointments, and call your doctor if you are having problems. It's also a good idea to know your test results and keep a list of the medicines you take. How can you care for yourself at home? Take your antibiotics as directed. Do not stop taking them just because you feel better. You need to take the full course of antibiotics. Drink extra water and other fluids for the next day or two. This will help make the urine less concentrated and help wash out the bacteria that are causing the infection. (If you have kidney, heart, or liver disease and have to limit fluids, talk with your doctor before you increase the amount of fluids you drink.) Avoid drinks that are carbonated or have caffeine. They can irritate the bladder. Urinate often. Try to empty your bladder each time. To relieve pain, take a hot bath or lay a heating pad set on low over your lower belly or genital area. Never go to sleep with a heating pad in place. To prevent UTIs Drink plenty of water each day. This helps you urinate often, which clears bacteria from your system. (If you have kidney, heart, or liver disease and have to limit fluids, talk with your doctor before you increase the amount of fluids you drink.) Urinate when you need to. If you are sexually active, urinate right after you have sex. Change sanitary pads often. Avoid douches, bubble baths, feminine hygiene sprays, and other feminine hygiene products that have deodorants. After going to the bathroom, wipe from front to back. When should you call for help? Call your doctor now or seek immediate medical care if: You have new or worse fever, chills, nausea, or vomiting. You have new pain in your back just below your rib cage. This is called flank pain. There is new blood or pus in your urine. You have any problems with your antibiotic medicine. Watch closely for changes in your health, and be sure to contact your doctor if: You are not getting better after taking an antibiotic for 2 days. Your symptoms go away but then come back. From <https://Click Contact.[employer].net/Launch ?hw.galicia=VI2L19KFP [email or web address] [email or web address] [id number] E&vgi=[id number]> 10/28/2024 Acute vaginitis (ICD-10 - N76.0) Bacterial Vaginosis: Care Instructions material was published Patient advised that [facility] does not have the capacity to complete pelvic exams or send out pelvic swabs for testing. Will need to follow up with SPECIAL NEEDS TUTOR or PCP if needing further testing or pelvic exam. For any urgent/emergent signs and symptoms, please seek immediate care at nearest UC/ED. Will send over treatment for BV as patient reports no relief of symptoms after taking flagyl and clindamycin. However, if symptoms do not improve or resolve - she will need to be seen by SPECIAL NEEDS TUTOR for further evaluation and management. Bacterial vaginosis is a condition in which there is excess growth of certain bacteria that are normally found in the vagina. Symptoms often include abnormal momin or yellow discharge with a fishy odor. It is not considered an infection that is spread through sexual contact. Symptoms can be annoying and uncomfortable. But bacterial vaginosis does not usually cause other health problems. However, in some cases it can lead to more serious issues. While bacterial vaginosis may go away on its own, most doctors use antibiotics to treat it. You may have been prescribed pills or vaginal cream. With treatment, bacterial vaginosis usually clears up in 5 to 7 days. Follow-up care is a galicia part of your treatment and safety. Be sure to make and go to all appointments, and call your doctor if you are having problems. It's also a good idea to know your test results and keep a list of the medicines you take. How can you care for yourself at home?Take your antibiotics as directed. Do not stop taking them just because you feel better. You need to take the full course of antibiotics.Do not eat or drink anything that contains alcohol if you are taking metronidazole or tinidazole.Keep using your medicine if you start your period. Use pads instead of tampons while using a vaginal cream or suppository. Tampons can absorb the medicine.Wear loose cotton clothing. Do not wear nylon and other materials that hold body heat and moisture close to the skin.Do not scratch. Relieve itching with a cold pack or a cool bath.Do not wash your vulva more than once a day. Use plain water or a mild, unscented soap. Do not douche.When should you call for help?< img width= 46 alt= src= https://cont ent.[facility].ca t/resources/14.3/ en-us/media/inter face/gjon-xrh-gek p_icn.jpg height= 46 >Call your doctor now or seek immediate medical care if: You have a fever.You have new or worse pain in your vagina or pelvis.Watch closely for changes in your health, and be sure to contact your doctor if: You have new or worse vaginal itching or discharge.You have unexpected vaginal bleeding.You are not getting better as expected.Your symptoms return after you finish the course of your medicine. Patient declining STI testing at this visit. States that she is with children and does not reports concerns regarding STI 10/28/2024 Other specified bacterial agents as the cause of diseases classified elsewhere (ICD-10 - B96.89) Follow up with PCP or SPECIAL NEEDS TUTOR for further evaluation and management. 10/28/2024 Vaginal discharge (ICD-10 - N89.8) Follow up in the clinic or with PCP as needed 10/28/2024 Influenza vaccination declined (ICD-10 - Z28.21) The CDC recommends influenza (flu) vaccine every fall. [facility] provides influenza vaccination for all ages. You can schedule a vaccination only appointment at your convenience. 10/28/2024 Other Nitrofurantoin Macrocrystals/Mon ohydrate Oral Capsule 25 mg/75 mg (NITROFURANTOIN/N ITROFURANTOIN MACROCRYSTALS - ORAL) material was published, Tinidazole Oral Tablet (TINIDAZOLE - ORAL) material was published, Urine Culture: About This Test material was published Visit summary given to and discussed with patient and/or parent who verbalizes understanding and agreement with plan of care. Thank you for your visit. Please look for the satisfaction survey that you will receive via email. We look forward to receiving your feedback regarding your experience at [facility]. Plan Of Treatment No Information Insurance Providers Payer Name Payer Address Payer Phone Subscriber Number Group Number Insured Name Patient Relationship to Insured Coverage Start Date Coverage End Date [facility] MEDICA[facility] [address] [place] [phone] [id number] Rajani Callejas Self - patient is the insured Medical (General) History Medical History History ICD Code IBS (irritable bowel syndrome) K58.9 Endometriosis N80.9 History of strep pharyngitis Z87.09 Asthma, exercise induced J45.990 Surgical History Surgery Date(Month/Year) Elective Colonoscopy age - 12 Hospitalization History Reason Date(Month/Year) colonoscopy
--- OUTSIDE RECORDS SUMMARY | 2025-06-28 09:42 | XMS_ITS | Encounter Summary ---
Author Organization [facility] Address [address] [facility] [place] [address] Care Team Providers Care Office Services Representative Name Role Phone Beckie Veras [facility] Unavailable [phone] María Scales MD Primary Care Provider [phone] Heydi Meyer MD, IBCLC Unavailable + [phone] Encounter Details Date Type Department Care Team (Late st Contact Info) Description 11/21/2023 Abstract [facility] Medicine [address] [place] [address] Beckie Veras, [facility] [address] [place] [address] Social History Tobacco Use Types Packs/Day Years [...] AM EDT Routine [facility] Lonnie ESQUIVEL [address] [facility] [place] [phone] Melba Goff PA [address] [facility] [place] [address] 07/17/2025 9:30 AM EDT Office Visit [facility] [place] [facility] [address] D [address] [address] Maame Escobar DO [address] [address] documented as of this encounter Visit Diagnoses Not on filedocumented in this encounter Care Teams Office Services Representative Relationship Specialty Start Date End Date Beckie Veras, SWATHI [address] [place] [address] PCP - [facility] 01/24/23 4 María Scales MD [address] [place] [address] PCP - General Family Medicine 03/03/23 Heydi Meyer MD, IBCLC [address] [place] [address] Family Medicine 10/12/23 documented as of this encounter
--- OUTSIDE RECORDS SUMMARY | 2025-06-28 09:42 | XMS_ITS | Encounter Summary ---
Author Organization [facility] Address [address] [facility] [place] [address] Care Team Providers Care Granite Block Paver Name Role Phone María Scales MD Primary Care Provider [phone] Heydi Meyer MD, IBCLC Unavailable + [phone] Encounter Details Date Type Department Care Team (Late Contact Info) Description 04/19/2025 Abstract LACY ESQUIVEL [address] [facility] [place] [phone] Diaz Mathis DO [address] [facility] [address] David Flemign, [facility]11 Social History Tobacco Use Types Packs/Day Years [...] 10:30 AM EDT Routine LACY ESQUIVEL [address] [place] [phone] Melba Goff PA [address] [facility] [address] [place], [place] [phone] 07/17/2025 9:30 AM EDT Office Visit [facility] [place] [address]AIN[address] D [address] [address] Maame Escobar DO [address] [phone] documented as of this encounter Visit Diagnoses Not on filedocumented in this encounter Care Teams Granite Block Paver Relationship Specialty Start Date End Date María Scales MD [address] [place] [address] PCP - General Family Medicine 03/03/23 Heydi Meyer MD, IBCLC [address] [place], [place] [address] Family Medicine 10/12/23 documented as of this encounter
--- OUTSIDE RECORDS SUMMARY | 2025-06-28 09:42 | XMS_ITS | Encounter Summary ---
Author Organization [facility] Address [address] [facility] [place] [address] Care Team Providers Care Travel Money Advisor Name Role Phone María Scales MD Primary Care Provider [phone] Heydi Meyer MD, IBCLC Unavailable + [phone] Encounter Details Date Type Department Care Team (Late Contact Info) Description 06/22/2025 Clinisync Result Encounter [facility] External Department Unsolicited Diaz Mathis DO [address] [facility] [address] David Fleming, [facility] Social History Tobacco Use Types Packs/Day [...] Upcoming Encounters Date Type Department Care Team ([facility] Contact Info) Description 07/04/2025 10:30 AM EDT Routine [facility] Lonnie ESQUIVEL [address] [facility] [place] [address] Melba Goff PA [address] [facility] [place] [address] 07/17/2025 9:30 AM EDT Office Visit [facility] [place] [facility] [address]AIN[address] D [address] [phone] Maame Escobar DO [address] [address] documented as of this encounter Procedures Procedure Name Priority Date/Time Associated Diagnosis Comments GLUCOSE 1 HOUR Routine 06/22/2025 11:49 AM EDT ALL THYROXINE (T4) FREE Routine 06/22/2025 11:49 AM EDT ALL THYROID STIM HORMONE Routine 06/22/2025 11:49 AM EDT ALL CBC WITH AUTO DIFF Routine 06/22/2025 11:49 AM EDT documented in this encounter Results * ALL THYROXINE (T4) FREE (06/22/2025 11:49 AM EDT) FREE T4 0.85 0.76 - 1.46 ng/dL TBH 06/22/2025 11:4 9 AM EDT 06/22/2025 11:52 AM EDT Narrative CLINISYNC - 06/22/2025 1:07 PM EDT us Diaz Delfina DO CLINISYNC Final Result Performing Organization Address City/[facility]/ZIP Co de Phone Number CLIN[facility]NC TB * ALL THYROID STIM HORMONE (06/22/2025 11:49 AM EDT) THYROID STIMULATING HORMONE 0.871 0.358 - 3.740 uIU/mL TBH 06/22/2025 11:4 9 AM EDT 06/22/2025 11:52 AM EDT Narrative CLINISYNC - 06/22/2025 12:39 PM EDT us Diaz Delfina DO CLINISYNC Final Result [facility] TB * (ABNORMAL) GLUCOSE 1 HOUR (06/22/2025 11:49 AM EDT) GLUCOSE 1 HOUR 144(H) <130 mg/dL TBH 06/22/2025 11:4 9 AM EDT 06/22/2025 11:52 AM EDT Narrative ERICK - 06/22/2025 12:39 PM EDT us Diaz Delfina DO LAB BLOOD ORDERABLES Final Resul t ERICK [facility] * (ABNORMAL) ALL CBC WITH AUTO DIFF (06/22/2025 11:49 AM EDT) Pathologist [facility] TB WBC 7.6 4.0 - 11.0 10 3/uL TBH TBH RBC 3.96(L) 4.20 - 5.40 10 6/uL TBH TBH HGB 12.9 12.0 - 16.0 g/dL TB TB HCT 37.2 36.0 - 48.0 % TBH TBH MCV 93.9 81.0 - 99.0 fL TBH TB MCH 32.6 26.7 - 34.0 pg TBH TBH MCHC 34.7 29.9 - 35.2 g/dL TB TB RDW 12.6 11.0 - 15.0 % TBH [...] - 06/22/2025 12:02 PM EDT us Diaz Delfina DO CL[facility] Final [facility] documented in this encounter Visit Diagnoses Not on filedocumented in this encounter Care Teams Travel Money Advisor Relationship Specialty Start Date End Date María Scales MD [address] [place] [address] PCP - General Family Medicine 03/03/23 Heydi Meyer MD, IBCLC [address] [place] [address] Family Medicine 10/12/23 documented as of this encounter
--- OUTSIDE RECORDS SUMMARY | 2025-06-28 09:42 | XMS_ITS | Encounter Summary ---
Author Organization [facility] Address [address] [facility] [place] [address] Care Team Providers Care Class C Driver Name Role Phone María Scales MD Primary Care Provider [phone] Heydi Meyer MD, IBCLC Unavailable + [phone] Encounter Details Date Type Department Care Team (Late Contact Info) Description 04/10/2025 Abstract LACY ESQUIVEL [address] [facility] [place] [phone] Diaz Mathis DO [address] [facility] [address] David Fleming, [facility]11 Social History Tobacco Use Types Packs/Day [...] 10:30 AM EDT Routine LACY ESQUIVEL [address] [place] [phone] Melba Goff PA [address] [facility] [address] [place], [place] [phone] 07/17/2025 9:30 AM EDT Office Visit [facility] [place] [address] [address] Maame Escobar DO [address] [phone] documented as of this encounter Visit Diagnoses Not on filedocumented in this encounter Care Teams Class C Driver Relationship Specialty Start Date End Date María Scales MD [address] [place] [address] PCP - General Family Medicine 03/03/23 Heydi Meyer MD, IBCLC [address] [place], [place] [phone] Family Medicine 10/12/23 documented as of this encounter
--- OUTSIDE RECORDS SUMMARY | 2025-06-28 09:42 | XMS_ITS | Encounter Summary ---
Author Organization [facility] Address [address] [facility] [place] [address] Care Team Providers Care Formation Testing Operator Name Role Phone María Scales MD Primary Care Provider [phone] Heydi Meyer MD, IBCLC Unavailable + [phone] Encounter Details Date Type Department Care Team (Late Contact Info) Description 01/09/2025 Orders Only [facility] [address] [place] [address] Ania Oneil, ENFORCEMENT SAFETY OFFICER [address] [place] [address] Social History Tobacco Use Types [...] AM EDT Routine N[facility] Lonnie ESQUIVEL [address] [facility] [place] [address] Melba Goff PA [address] [facility] [place] [address] 07/17/2025 9:30 AM EDT Office Visit [facility] Clive ESQUIVEL [address] [facility] 2 [place] [phone] Maame Escobar, DO [address] [facility] 2 [place] [phone] documented as of this encounter Procedures Procedure Name Priority Date/Time Associated Diagnosis Comments BETA-HCG Routine 01/08/2025 10:53 AM EDT ETHANOL, URINE Routine 01/08/2025 10:53 AM EDT CBC Routine 01/08/2025 10:53 AM EDT BASIC METABOLIC PANEL Routine 01/08/2025 10:53 AM EDT documented in this encounter Results * CBC (01/08/2025 10:53 AM EDT) Blood Venous blood specimen / Unknown [facility] LAB BLOOD ORDERABLES Final R esult * Basic metabolic panel (01/08/2025 10:53 AM EDT) Blood Venous blood specimen / Unknown [facility] LAB BLOOD ORDERABLES Final R esult * Lactate dehydrogenase (01/08/2025 10:53 AM EDT) Blood Venous blood specimen / Unknown [facility] LAB BLOOD ORDERABLES Final R esult * Ethanol, urine (01/08/2025 10:53 AM EDT) Urine Urine specimen obtained by clean catch procedure / Unknown [facility] LAB URINE ORDERABLES Final R esult documented in this encounter Visit Diagnoses Not on filedocumented in this encounter Care Teams Formation Testing Operator Relationship Specialty Start Date End Date María Scales MD [address] [place] [address] PCP - General Family Medicine 03/03/23 Heydi Meyer MD, IBCLC [address] [place] [address] Family Medicine 10/12/23 documented as of this encounter
--- OUTSIDE RECORDS SUMMARY | 2025-06-28 09:42 | XMS_ITS | Encounter Summary ---
Author Organization [facility] Address [address] [facility] [place] [address] Care Team Providers Care Fireproof Door Assembler Name Role Phone María Scales MD Primary Care Provider + [phone] Heydi Meyer MD, IBCLC Unavailable + [phone] Encounter Details Date Type Department Care Team (Late Contact Info) Description 10/31/2024 External Result Encounter N[facility] External Department Unsolicited Maame Escobar DO [address] [address] Social History Tobacco Use Types Packs/Day Years [...] AM EDT Routine [facility] Lonnie ESQUIVEL [address] [place] [phone] Melba Goff PA [address] [facility] [place] [address] 07/17/2025 9:30 AM EDT Office Visit [facility] Clive ESQUIVEL [address] [facility] [address] [place] [phone] Maame Escobar, DO [address] [address] documented as of this encounter Procedures Procedure Name Priority Date/Time Associated Diagnosis Comments RECURRENT VAGINITIS (HTRX) Routine 04/10/2025 4:27 PM EDT US PELVIS TRANSVAGINAL 10/31/2024 4:38 PM EST documented in this encounter Results * (ABNORMAL) RECURRENT VAGINITIS (HTRX) (04/10/2025 4:27 PM EDT) [facility] ATOPOBIUM VAGINAE 0 19.961 - 24.689 ppm 04/12/2025 6:23 AM EDT [facility] ATOPOBIUM VAGINAE Not Detected 19.961 - 24.689 ppm 04/12/2025 6:23 AM EDT [facility] BVAB 2,3 (BACTERIAL VAGINOSIS ASSOCIATED BACTERIA 2, 3); MOBILUNCUS SPP 0 19.961 - 24.689 ppm 04/12/2025 6:23 AM EDT [facility] BVAB 2,3 (BACTERIAL VAGINOSIS ASSOCIATED BACTERIA 2, 3); MOBILUNCUS SPP Not Detected 19.961 - 24.689 ppm 04/12/2025 6:23 AM EDT [facility] ROSARIO ALBICANS, PARAPSILOSIS, TROPICALIS 0 19.961 - 30.770 ppm 04/12/2025 6:23 AM EDT [facility] ROSARIO ALBICANS, PARAPSILOSIS, TROPICALIS Not Detected 19.961 - 30.770 ppm 04/12/2025 6:23 AM EDT [facility] ROSARIO GLABRATA 0 23.000 - 32.138 ppm 04/12/2025 6:23 AM EDT [facility] ROSARIO GLABRATA Not Detected 23.000 - 32.138 ppm 04/12/2025 6:23 AM EDT [facility] ROSARIO KRUSEI 0 23.000 - 32.271 ppm 04/12/2025 6:23 AM EDT [facility] ROSARIO KRUSEI Not Detected 23.000 - 32.271 ppm 04/12/2025 6:23 AM EDT [facility] CHLAMYDIA TRACHOMATIS 0 23.000 - 31.467 ppm 04/12/2025 6:23 AM EDT [facility] CHLAMYDIA TRACHOMATIS Not Detected 23.000 - 31.467 ppm 04/12/2025 6:23 AM EDT [facility] GARDNERELLA VAGINALIS 19.938(A) 19.961 - 24.689 ppm 04/12/2025 6:23 AM EDT [facility] GARDNERELLA VAGINALIS Detected(A) 19.961 - 24.689 ppm 04/12/2025 6:23 AM EDT [facility] MEGASPHAERA (TYPES 1, 2) 0 19.961 - 24.689 ppm 04/12/2025 6:23 AM EDT [facility] MEGASPHAERA (TYPES 1, 2) Not Detected 19.961 - 24.689 ppm 04/12/2025 6:23 AM EDT [facility] NEISSERIA GONORRHOEAE 0 23.000 - 32.117 ppm 04/12/2025 6:23 AM EDT [facility] NEISSERIA GONORRHOEAE Not Detected 23.000 - 32.117 ppm 04/12/2025 6:23 AM EDT [facility] TRICHOMONAS VAGINALIS 0 23.000 - 32.119 ppm 04/12/2025 6:23 AM EDT [facility] TRICHOMONAS VAGINALIS Not Detected 23.000 - 32.119 ppm 04/12/2025 6:23 AM EDT [facility] MYCOPLASMA GENITALIUM 0 19.961 - 24.689 ppm 04/12/2025 6:23 AM EDT [facility] MYCOPLASMA GENITALIUM Not Detected 19.961 - 24.689 ppm 04/12/2025 6:23 AM EDT [facility] ERMB, C; MEFA 23.751(A) 23.000 - 27.611 ppm 04/12/2025 6:23 AM EDT [facility] ERMB, C; MEFA Detected(A) 23.000 - 27.611 ppm 04/12/2025 6:23 AM EDT [facility] TET B, TET M 23.047(A) 23.000 - 27.778 ppm 04/12/2025 6:23 AM EDT [facility] TET B, TET M Detected(A) 23.000 - 27.778 ppm 04/12/2025 6:23 AM EDT [facility] Tissue 04/10/2025 4:27 PM EDT 04/12/2025 1:19 AM EDT us Diaz Mathis DO LAB BLOOD ORDERABLES Final Resul t [facility] [address] [place] [address] * US pelvis transvaginal (10/31/2024 4:38 PM EST) Anatomical Region Laterality Modality Pelvis Ultrasound 10/31/2024 4:38 PM EST Narrative 10/31/2024 4:42 PM EST [facility] [place] [address] Ultrasound Report Signed Patient: Rajani Callejas MR#: [id number] 11 : 1995 Acct:[id number] Age/Sex: 29 / F ADM Date: 10/31/24 Loc: Room: Type: [facility] Attending Dr: Maame Escobar DO Ordering Provider: MAAME ESCOBAR DO Date of Service: 10/31/24 US/US pelvic complete: R10.2 ([id number]) US/US transvaginal: R10.2 Copies to: MAAME ESCOBAR DO Pelvic ultrasound. Reason for exam: Pelvic pressure bloating and vaginal bleeding for 30 days. Comparison: Pelvic ultrasound 03/11/2022 Technique: Transabdominal imaging of the uterus and ovaries was performed. Transvaginal imaging of the uterus and ovaries was also obtained. Additional spectral Doppler analysis of the ovaries was also obtained. Findings: The uterus measures 8.2 x 3.7 x 4.7 cm. No fibroid is noted. IUD is seen within the endometrial canal without abnormal endometrial thickening. No free fluid is seen. Both ovaries appear unremarkable with the right ovary measuring 3.2 x 1.8 x 1.8 cm and the left ovary measuring 3.3 x 2.1 x 2.4 cm. Normal arterial and venous Doppler waveforms of the ovaries. US/US pelvic complete Impression: Unremarkable study. Impression dictated by: Chencho Herrera Jr., D.OSmita10/31/2024 4:40 PM Dictation Location: [id number] Tech: Karma Kimmartha Transcribed By: SARAH 10/31/24 1640 Dictated By: Chencho Herrera Jr, DO 10/31/24 1638 Signed By: <Electronically signed by Chencho Herrera Jr, DO in OV> 10/31/24 1640 Procedure Note Radiology, Radiologist, MD - 10/31/2024 [facility] [place] [address] Ultrasound Report Signed Patient: Rajani Callejas MMR#: [id number] 11 : 1995Acct:[id number] Age/Sex: Date: 10/31/24 Loc: Room:Type: [facility] Attending Dr: Maame Escobar DO Ordering Provider: MAAME ESCOBAR DO Date of Service: 10/31/24 US/US pelvic complete: R10.2 ([id number]) US/US transvaginal: R10.2 Copies to: MAAME ESCOBAR DO Pelvic ultrasound. Reason for exam: Pelvic pressure bloating and vaginal bleeding for 30days. Comparison: Pelvic ultrasound 03/11/2022 Technique: Transabdominal imaging of the uterus and ovaries was performed.Transvaginal imaging of the uterus and ovaries was also obtained. Additional spectral Doppleranalysis of the ovaries was also obtained. Findings: The uterus measures 8.2 x 3.7 x 4.7 cm. No fibroid is noted.IUD is seen within the endometrial canal without abnormal endometrial thickening. No free fluidis seen. Both ovaries appear unremarkable with the right ovary measuring 3.2 x 1.8 x 1.8 cm andthe left ovary measuring 3.3 x 2.1 x 2.4 cm. Normal arterial and venous Doppler waveforms of theovaries. US/US pelvic complete Impression: Unremarkable study. Impression dictated by: Chencho Herrera Jr., D.O.10/31/2024 4:40 PM Dictation Location: [facility] Tech: Karma [place] Transcribed By: PWS 10/31/24 1640 Dictated By: Chencho Herrera Jr, DO 10/31/24 1638 Signed By: <Electronically signed by Chencho Herrera Jr, DO inOV> 10/31/24 1640 us Maame Kathi Escobar DO IMG US PROCEDURES Final Re sult documented in this encounter Visit Diagnoses Not on filedocumented in this encounter Care Teams Fireproof Door Assembler Relationship Specialty Start Date End Date María Scales MD [address] [place] [address] PCP - General Family Medicine 03/03/23 Heydi Meyer MD, IBCLC [address] [place] [address] Family Medicine 10/12/23 documented as of this encounter
--- OUTSIDE RECORDS SUMMARY | 2025-06-28 09:42 | XMS_ITS | Encounter Summary ---
Author Organization [facility] Address [address] [facility] [place] [address] Care Team Providers Care Proposal Consultant Name Role Phone María Scales MD Primary Care Provider [phone] Heydi Meyer MD, IBCLC Unavailable + [phone] Encounter Details Date Type Department Care Team (Late Contact Info) Description 03/21/2025 Abstract NOMDavid ESQUIVEL [address] [facility] [place] [phone] Diaz Mathis DO [address] [facility] [address] [place], [facility]11 Social History Tobacco Use Types Packs/Day Years [...] Description 07/04/2025 10:30 AM EDT Routine LACY ESQUVIEL [address] [place] [phone] Melba Goff PA [address] [facility] [address] [place], [place] [phone] 07/17/2025 9:30 AM EDT Office Visit [facility] Clive SIERRA [address] [place] [address] [address] Maame Escobar DO [address] [phone] documented as of this encounter Visit Diagnoses Not on filedocumented in this encounter Care Teams Proposal Consultant Relationship Specialty Start Date End Date María Scales MD [address] [place] [address] PCP - General Family Medicine 03/03/23 Heydi Meyer MD, IBCLC [address] [place], [place] [phone] Family Medicine 10/12/23 documented as of this encounter
[2025-06-28 12:36] LABS: Glucose 1 Hour 115 mg/dL (<180)
[2025-06-28 14:35] LABS: Glucose 2 Hour 161 mg/dL (<155)
[2025-06-28 15:19] LABS: Glucose 3 Hour 108 mg/dL (<140)
== END 2025-06-28 09:34 | disposition home or self-care (01) ==
LOC: LAB 09:39
PROVIDERS: Visit Provider Obstetrics & Gynecology
DX: R73.09 Other abnormal glucose (principal)
CPT/HCPCS: 36415; 82951; 82952

== ENCOUNTER 2025-08-02 10:35 | Outpatient (OUT) | payer OTHER, SELFPAY ==
--- NOTE | 2025-08-02 10:51 | US_ITS ---
The [address] [address] Patient Name: GREG SANCHEZ MRN: [id number] date: 1995 Sex: F Assigned Patient Location: Current Patient Location: Accession/Order Number: [id number] Exam Date: 08/02/2025 10:52 Report Date: 08/02/2025 11:30 At the request of: ROSINA MONZON DO Procedure: US OB placenta CLINICAL DATA: patient with spotting for one day COMPARISON: None ULTRASOUND OB GROWTH There is a single live intrauterine gestation in cephalic presentation. The cervix is closed with estimated length of 4.5 cm. There is cardiac and somatic activity with heart rate of 145 bpm. The placenta is anterior. The amniotic fluid index measures 13.5 cm which is in normal range. The ovaries were not imaged. There is no free fluid. The following measurements were obtained: Biparietal diameter 8.1 cm 32 weeks 4 days 93% Head circumference 29.5 cm 32 weeks 4 days 74% Abdominal circumference 28.5 cm 32 weeks 4 days 94% Femur length 6.0 cm 31 weeks 2 days 59% The composite ultrasound age based on these measurements is 32 weeks 2 days +/- 2 weeks 2 days. The estimated date of delivery is 09/25/2025. The reported gestational age should be 30 weeks 3 days however there are no prior studies for correlation. The estimated weight is 4 lbs. 4 oz. +/- 10 ounces (91%). US/US OB growth IMPRESSION: SINGLE LIVE INTRAUTERINE GESTATION WITH TODAY'S ULTRASOUND AGE OF 32 WEEKS 2 DAYS. ULTRASOUND PLACENTA There is an anterior placenta which is normal in position and appearance. There is no evidence of previa. IMPRESSION: UNREMARKABLE PLACENTA. Impression dictated by: Sara Galeano M.D. 08/02/2025 11:30 AM Dictation Location: [place] [address] Electronically authenticated by: [id number] Y Date: 08/02/2025 11:30
--- NOTE | 2025-08-02 10:51 | US_ITS ---
The [address] [address] Patient Name: GREG SANCHEZ MRN: [id number] date: 1995 Sex: F Assigned Patient Location: Current Patient Location: Accession/Order Number: [id number] Exam Date: 08/02/2025 10:52 Report Date: 08/02/2025 11:30 At the request of: ROSINA MONZON DO Procedure: US OB placenta CLINICAL DATA: patient with spotting for one day COMPARISON: None ULTRASOUND OB GROWTH There is a single live intrauterine gestation in cephalic presentation. The cervix is closed with estimated length of 4.5 cm. There is cardiac and somatic activity with heart rate of 145 bpm. The placenta is anterior. The amniotic fluid index measures 13.5 cm which is in normal range. The ovaries were not imaged. There is no free fluid. The following measurements were obtained: Biparietal diameter 8.1 cm 32 weeks 4 days 93% Head circumference 29.5 cm 32 weeks 4 days 74% Abdominal circumference 28.5 cm 32 weeks 4 days 94% Femur length 6.0 cm 31 weeks 2 days 59% The composite ultrasound age based on these measurements is 32 weeks 2 days +/- 2 weeks 2 days. The estimated date of delivery is 09/25/2025. The reported gestational age should be 30 weeks 3 days however there are no prior studies for correlation. The estimated weight is 4 lbs. 4 oz. +/- 10 ounces (91%). US/US OB placenta IMPRESSION: SINGLE LIVE INTRAUTERINE GESTATION WITH TODAY'S ULTRASOUND AGE OF 32 WEEKS 2 DAYS. ULTRASOUND PLACENTA There is an anterior placenta which is normal in position and appearance. There is no evidence of previa. IMPRESSION: UNREMARKABLE PLACENTA. Impression dictated by: Sara Galeano M.D. 08/02/2025 11:30 AM Dictation Location: [place] [address] Electronically authenticated by: [id number] Y Date: 08/02/2025 11:30
== END 2025-08-02 10:36 | disposition home or self-care (01) ==
PROVIDERS: Visit Provider Obstetrics & Gynecology
DX: O26.893 Other specified pregnancy related conditions, third trimester (principal); O26.853 Spotting complicating pregnancy, third trimester; Z3A.32 32 weeks gestation of pregnancy; R10.9 Unspecified abdominal pain
CPT/HCPCS: 76815; 76816

== ENCOUNTER 2025-08-28 08:53 | Outpatient (OUT) | payer OTHER, SELFPAY ==
--- OUTSIDE RECORDS SUMMARY | 2024-04-21 05:45 | XMS_ITS | Continuity of Care Document ---
Author Organization [facility] Address [address] [place] [phone] Phone Care Team Providers Care Lead Technician Name Role Phone Constance Subramanian DDS Unavailable Unavailable Allergies, Adverse Reactions, Alerts Substance Reaction Status Criticality CEPHALEXIN MONOHYDRATE Active No In formation Medications Medication Instructions Dosage Effective Dates (start - stop) Status Comments magnesium 200 mg tablet - Active ashwagandha root extract 300 mg capsule - Active Hair Vitamins tablet - Active Procedures Procedure Date Oral Hygiene Instruction Post Op Visit Dental Oral Hygiene Instruction Resin Composite 1s; Posterior 4 Bitewings Four Films Intraoral-periapical 1st Film 4 Oral Hygiene Instruction Periodic Oral Eval Estab Patient 2023 Nut[employer] Couns For Control Of [place] Dis Jun Resin Composite 1s; Posterior 2 Resin Composite 1s; Posterior 2 Treatment Completed Periodic Oral Eval Estab Patient 2021 Prophylaxis Adult [employer] For Control Of [place] Dis Apr Oral Hygiene Instruction Intraoral-complete Series (bw) Oral Hygiene Instruction No Charge Oral Hygiene Instruction Resin Composite 1s; Posterior 9 Comp Oral Eval New/estab Patient 2017 Prophylaxis Adult [employer] Couns For Control Of [place] Dis Sep Oral Hygiene Instruction Advance Directives Directive Yes / No Effective Date File Name No Information Encounters Encounter Description Practice Location Reason(s) For Visit Diagnoses Date Provider Providers Copied on Encounter [facility], [address], [place], [id number], [place] tel:[phone] Dental Clinic Dental limited (chief complaint) Encounter for screening for dental disorders [facility] [place]. . tel:[phone] [facility], [address], [place], [id number], [place] tel:[phone] [facility] Dental Clinic filling (chief complaint) Encounter for screening for dental disorders [facility] [place]. . tel:[phone] [facility], [address] [place] [address], [id number], [place] tel:[phone] Dental Clinic DN (chief complaint) Encounter for screening for dental disorders [facility] [place]. . tel:[phone] [facility], [address] [place] [address], [id number], [place] tel:[phone] Dental Clinic filling (chief complaint) [facility] [address] [place], [address], [place]. tel:[phone] [facility], [address] [place] [address], [id number], [place] tel:[phone] Dental Clinic filling (chief complaint) [facility] [address] [place], [address], [place]. tel:[phone] [facility], [address], [place], [id number], [place] tel:[phone] Dental Clinic Encounter for screening for dental disorders [facility] Hany. [address], [place], [id number], [place]. tel:[phone] [facility], [address] [place] [address], [id number], [place] tel:[phone] Dental Clinic filling (chief complaint) Encounter for screening for dental disorders Pily Leach. [address], [place], [id number], [place]. tel:[phone] [facility], [address], [place], [id number], tel:[phone] Dental Clinic Encounter for screening for dental disorders Marli Lee. [address] [place], [place], [id number], [place]. tel:[phone] Family History Family Member Type Diagnosis Age At Onset Mother Problem (finding) Alive and well Father Problem (finding) Alive and well Payers Payer name Insurance type Covered libertarian ID Authoriza tion(s) No Information Social History Type Description Quantity Date Captured Comments Alcohol Use Details Caffeine Use Details coffee 1 cup per day Tobacco Use Status Current non-smoker Smoking Status Never smoker Sex Female Sexual Orientation Straight or heterosexual Jan Gender Identity Female Vital Signs Date / Time: Height Weight BMI Pulse Rate Blood Pressure Temperature Respiratory Rate Body Surface Area Head Circumference Head Circ. Percentile Wt./Chirag. Percentile BMI percentile Pulse Ox Inhaled Ox 10:59 AM 65.00 in 58.967 kg (130.00 lbs) 21.6 3 kg/m eter (2) 59 /min 101/66 mm[Hg] 97.90 F Chief Complaint And Reason For Visit From encounter dated '04/21/2024 10:45'. Dental limited (chief complaint). Description: Dental limited UL, UR tooth pain Reason For Referral Reason For Referral No Information Plan Of Treatment Date Type Action Status Goal PRAPARE ASSESSMENT. Due on J due Goal RLP. Due on due Goal Influenza vaccine. Due on Ju due Goal Tdap Vaccine. Due on 2023 due Goal Depression screening. Due on due Goal PAP. Due on due Goal Unhealthy drug use screening . Due on due Goal Tdap. Due on due Goal Hepatitis C screening. Due o n due Goal Hep A. Due on du e Goal Hep A. Due on du e Goal Unhealthy drug use screening . Due on due Goal Influenza vaccine. Due on due Goal Tdap Vaccine. Due on 2023 due Goal Tdap. Due on due Goal Depression screening. Due on due Goal RLP. Due on due Goal Hepatitis C screening. Due o n due Goal PAP. Due on due Goal PRAPARE ASSESSMENT. Due on A due Goal Influenza vaccine. Due on due Goal Tdap Vaccine. Due on 2023 due Goal PAP. Due on due Goal Tdap. Due on due Goal Hepatitis C screening. Due o n due Goal Depression screening. Due on due Goal Unhealthy drug use screening . Due on due Goal PRAPARE ASSESSMENT. Due on A due Goal Hep A. Due on du e Goal RLP. Due on due Goal Hep A. Due on du e Goal PRAPARE ASSESSMENT. Due on S due Goal PAP. Due on due Goal Influenza vaccine. Due on Se p due Goal Tdap. Due on due Goal Depression screening. Due on due Goal RLP. Due on due Goal Tdap. Due on due Goal Depression screening. Due on due Goal RLP. Due on due Goal Influenza vaccine. Due on due Goal PAP. Due on due History Of Present Illness Encounter Date Complaint History Of Prese nt Illness Dental limited Dental limited U L, UR tooth pain filling filling DN filling Filling filling filling filling filling Functional Status Date Functional Assessmen t No Information Instructions Date Instruction Additional Infor mation No Information Assessments Type Assessment Date No Information Patient Care Teams Name Effective Dates (start - stop) Status Members No Information
--- OUTSIDE RECORDS SUMMARY | 2025-08-22 09:10 | XMS_ITS | Encounter Summary ---
Author Organization [facility] Address [address] [place] [address] Care Team Providers Care Non Destructive Testing Technician Name Role Phone María Scales MD Primary Care Provider [phone] Heydi Meyer MD, IBCLC Unavailable +- [phone] Reason for Visit * ReasonCommentsRoutine Visit Encounter Details DateTypeDepartmentCare Team (Latest Contact Info)Zyqedlhbqrs00/28/2025 10:10 AM EDTRoutine [facility] Lonnie OBGYN [address] [facility] [place] [address] Diaz Mathis DO [address] [facility] [place] [address] Excessive growth affecting management of in third trimester, single or unspecified fetus (HHS-HCC) (Primary Dx); Third trimester (HHS-HCC); 33 weeks gestation of ([facility]) Social History Tobacco UseTypesPacks/DayYears UsedDateSmoking Tobacco: NeverSmokeless Tobacco: NeverAlcohol UseStandard Drinks/WeekCommentsNever0 (1 standard drink = 0.6 oz pure alcohol)caffeine intake : noneEstimated Date of DeliveryCommentsYes 5Based on last menstrual period of 01/01/2025Sex and Gender Information ValueDate RecordedSex Assigned at BirthNot on fileLegal BiwUhzjjz40/15/2023 7:39 PM EDTGender OuzyjcdcSkgsts71/15/2023 7:39 PM EDTSexual OrientationNot on file documented as of this encounter Last Filed Vital Signs Vital SignReadingTime TakenCommentsBlood Afhnjzlk013/7208/22/2025 10:35 AM EDT Pulse--Temperature--Respiratory Rate--Oxygen Saturation--Inhaled Oxygen Concentration--Yayhde12.5 kg (159 lb 12 oz)08/22/2025 10:35 AM EDTHeight--Body Mass Index27.42003/13/2025 2:47 PM EDTdocumented in this encounter Progress Notes * Poornima Calixto NP - 08/22/2025 10:10 AM EDT Reason for Appointment: Patient [...] nursing note reviewed. Exam conducted with a fuel testing technician present. Vitals: Estimated body mass index is 27.42 kg/m?? as calculated from the following: Height as of 03/13/25: 5' 4 . Weight as of this encounter: 159 lb 12 oz. BP: 112/72 Patient's last menstrual period was 01/01/2025. Assessment/Plan ICD-10-CM 1. Third trimester ([facility]) Z34.93 2. 33 weeks gestation of ([facility]) Z3A.33 Return OB: Patient presents today for a routine obstetrics appointment. Patient is currently 33w2d . Patient states she is doing well but has complaints of being tired due to current . Patient has verbalizes frequent movement. labor precautions was discussed/given and patient was instructed to perform kick counts three times a day. Will begin NST / BPP last growth ultrasound 91% EFW No orders of the defined types were placed in this encounter. Follow Up: Patient is to return to office in 2 week for routine OB appointment. Documented by Poornima Calixto NP on behalf of: Diaz Mathis DO documented in this encounter Plan of Treatment DateTypeDepartmentCare Team (Latest Contact Info)Xfzfoqycnzx55/10/2025 9:30 AM ESTAncillary Procedure [facility] Lonnie OBGALA [address] [facility] [place] [phone] 09/11/2025 10:20 AM ESTRoutine [facility]OMS oLnnie OBGYN [address] [facility] [place] [phone] Melba Goff PA [address] [facility] [place] [address] 09/18/2025 10:40 AM ESTRoutine [facility] Lonnie OBGYN [address] [facility] [place] [phone] Diaz Mathis DO [address] [facility] [place] [address] 09/28/2025 10:40 AM ESTRoutine N[facility] Lnonie OBGYN [address] [facility] [place] [phone] Diaz Mathis DO [address] [facility] [place] [address] 10/02/2025 10:30 AM ESTRoutine [facility] Lonnie OBGYN [address] [facility] [place] [address] Melba Goff PA [address] [facility] [place] [address] NameTypePriorityAssociated DiagnosesOrder ScheduleUS biophysical profile w non stress testImagingRoutine Excessive growth affecting management of in third trimester, single or unspecified fetus ([facility]) Expected: 08/22/2025 (Approximate), Expires: 02/20/2026documented as of this encounter Procedures Procedure NamePriorityDate/TimeAssociated DiagnosisCommentsPOCT URINALYSIS KAZFZAIRTwjunpa95/28/2025 10:53 AM EDT Third trimester ([facility]) documented in this encounter Results * POCT urinalysis dipstick manually resulted (08/22/2025 10:53 AM EDT)Component ValueRef RangeTest MethodAnalysis TimePerformed AtPathologist SignatureColor, UAYellowClarity, UAClearGlucose, UANegativeNegative - 2000(110) ++++ mg/dL Bilirubin, UANegativeNegative - 4(70) +++ mg/dLKetones, UANegativeNegative - 160(16) ++++ mg/dLSpec Grav, UA1.0001 - 1.03Blood, UANegativeNegative - 50 Ortega/mcLpH, UA6.55 - 9Protein, UANegativeNegative - 2000(20) ++++ mg/dL Urobilinogen, UA0.20.2 - 12 mg/dLLeukocytes, UANegativeNegative - 500+++ Fidencio/mcLNitrite, UANegativeNegative - PositiveSpecimen (Source)Anatomical Location / LateralityCollection Method / VolumeCollection TimeReceived Time Urine08/22/2025 10:53 AM EDT Narrative Authorizing ProviderResult TypeResult StatusCorey Delfina DOPOINT OF CARE TEST ENTER/EDIT ORDERABLESFinal Result documented in this encounter Visit Diagnoses Diagnosis Excessive growth affecting management of in third trimester, single or unspecified fetus (HHS-HCC)- Primary Third trimester (HHS-HCC) state, incidental 33 weeks gestation of (HHS-HCC) documented in this encounter Care Teams Team MemberRelationshipSpecialtyStart DateEnd Date María Scales MD [address] [place] [address] PCP - GeneralFamily Medicine03/03/23 Heydi Meyer MD, IBCLC [address] [place] [address] Family Pwkiitgw54/18/23documented as of this encounter
--- NOTE | 2025-08-28 | US_ITS ---
[facility] [place] [id number] Patient Name: GREG SANCHEZ MRN: [id number] date: 1995 Sex: F Assigned Patient Location: [facility] Current Patient Location: Accession/Order Number: [id number] Exam Date: 08/28/2025 08:58 Report Date: 08/28/2025 10:04 At the request of: ROSINA MONZON DO Procedure: US OB BPP w non-stress BIOPHYSICAL PROFILE: CLINICAL INFORMATION: EXCESSIVE GROWTH O36.63X0 COMPARISON: 08/02/2025 There is a single live intrauterine gestation in cephalic presentation. The reported gestational age is 34 weeks 1 day. The heart rate measures 136 beats per minute. FINDINGS: TONE: 1 or more episodes of activity extension and flexion of extremity or opening and closing of the hand [Y] 2/2 GROSS BODY MOVEMENTS: 3 or more discrete body or limb movements [Y] 2/2 BREATHING MOVEMENTS: 1 or more episodes of breathing lasting at least 30 seconds [Y] 2/2 SYLVAIN: A single deepest vertical pocket of amniotic fluid greater than 2 cm [Y] 2/2 SYLVAIN: 17.6 cm Total score: 8/8 US/US OB BPP w non-stress IMPRESSION: NORMAL BIOPHYSICAL PROFILE . Impression dictated by: Sara Galeano M.D. 08/28/2025 10:04 AM Dictation Location: [place] [address] Electronically authenticated by: [id number] Y Date: 08/28/2025 10:04
--- OUTSIDE RECORDS SUMMARY | 2025-08-28 08:55 | XMS_ITS | Patient Health Record ---
Author Organization [facility] Address [address] [place] [address] Care Team Providers Care Paper Reeler Name Role Phone María Scales Primary Care Provider Luis Alberto deluca Amanda Awad Isaias Allergies Allergen (clinical drug ingredient) Drug/Non Drug Allergy documented on EMR Reaction Allergy Type Onset Date Status cephalexin Cephalexin face swelling Drug Allergy Active Results Component Value Reference Range Notes Urine Culture and Sensitivit y Reviewed date:10/31/2024 08:11:05 AM Interpretation:Abnormal Performing Lab:QPT, [facility] [address] [address] , [address] [place], [place] [id number] Reggie Morgan MD Notes/Report: 0 Received Date: [id number] CULTURE, URINE, ROUTINE SEE NOTE CULTURE, URINE, ROUTINE Micro Number: [id number] Test Status: Final Specimen Source: Urine, clean [...] date:10/28/2024 02:48:45 PM Interpretation:Negative Performing Lab: Notes/Report: NegativeBlood Non-Hemolyzednegativenegative - ca. 250 Ortega/mlUrobilinormalnormal - 12 mg/dLBilinegativenegative - largeProteinnegativenegative - 500 mg/dL Nitritesnegativenegative - positiveKetonenegativenegative - large mg/dLAscorbic Acid++trace - largeGlucosenegativenegative - > 1000 mg/dLpH55.0 - 9.0Spec. Gr. 1.0051.000 - 1.030LEUKnegativenegative - ca. 500 Fidencio/ml Reason For Referral No Information Medications Medication SIG (Take, Route, Frequency, Duration) Notes Start Date End Date Status Vitamin B-12 ActiveMirena (52 MG) 20 MCG/DAYas directed IntrauterineActiveFish OilActive Immunizations Vaccine Route Administration Date Status Comme nts Flu Vaccine (Given in Past) Unspecified Unknown 09/29/2018 Administered vaccinated for 2017 season [id number] Quad PFS (0.5mL Admin) 18 y/o & [...] Status Risk Notes Diagnosis Streptococcal sore throat (disor donny) (05340370) Strep pharyngitis (J02.0) ActiveconfirmedProblemIrritable bowel syndrome (44310049)IBS (irritable bowel syndrome) (K58.9)ActiveconfirmedProblemEndometriosis (674999949)Endometriosis (N80.9)ActiveconfirmedProblemHistory of respiratory disease (690858271)History of strep pharyngitis (Z87.09)ActiveconfirmedProblemExercise-induced asthma (66854269)Asthma, exercise induced (J45.990)Activeconfirmed Vital Signs Temperature 98.1 degrees Fahrenheit 10/28/2024 Respiratory Rate16 /min10/28/2024lood pressure fnjrwkxyu66 mm Hg10/28/2024 Zitmri53 in10/28/2024lood pressure jjmjczqa270 mm Hg10/28/20242258Ddvuqh876 lbs 10/28/2024BMI20.99 kg/m210/28/2024 Encounters Encounter Location Date Provider Diagnosis [address] [place] [address] 10/28/2024 Amanda Posadas Acute UTI N39.0 ; [...] symptoms. Specimen will be sent to outside laband patient will receive third alliance party bill from laboratory. Patient verbalized understanding [...] go away but then come back. From <[email or web address] AZMHIWVAWCHN2QTVUX8S4MQXXL5CIAFXGWM9ZWF2GM3Y8XXLHCAKUBDBKQMZSP5JBPHW4IFVVP3DAFI& gsx=[id number]> 5Acute vaginitis (ICD-10 - N76.0) Bacterial Vaginosis: Care Instructions material was published Patient advised that [facility] does not have the capacity to complete pelvic exams or send out pelvic swabs for testing. Will need to follow up with NATIONAL ACCOUNT DIRECTOR or PCP if needing further testing or pelvic exam.For any urgent/emergent signs and symptoms, please seek immediate care at nearest UC/ED. Will send over treatment for BV as patient reports no relief of symptoms after taking flagyl and clindamycin. However, if symptoms do not improve or resolve - she will need to be seen by NATIONAL ACCOUNT DIRECTOR for further evaluation and management. Bacterial vaginosis [...] doctors use antibiotics to treat it. You mayhave been prescribed pills or vaginal cream. With treatment, bacterial vaginosis usually clears up in 5 to 7 days. Follow-up care is a galicia part of your treatment and safety. Be sure to make and go to all appointments, and call your doctor if you are having problems. It's also a good idea to know your test resultsand keep a list of the medicines you take. How can you care for yourself at home?Take your antibiotics as directed. Do not stop taking them just because you feel better. You need to take the full course of antibiotics.Do not eat or drink anything that contains alcohol if you are taking metronidazole or tinidazole.Keep using your medicine ifyou start your period. Use pads instead of [...] for help?< img width= 46 alt= src= https://content.healthwise.n et/resources/14.3/en-us/media/interface/gobr-dnf-wlyk_ygx.jpg height= 46 >Call your doctor now or seek immediate medical care if: You have a fever.You have new or worse pain in your vagina or pelvis.Watch closely for changes in your health, and be sure to contact your doctor if: You have new or worse vaginal itching or discharge.You have unexpected vaginal bleeding.You are notgetting better as expected.Your symptoms return after you finish the course of your medicine. Patient declining STI testing at this visit. States that she is with children and does not reports concerns regarding STI10/28/2024Other specified bacterial agents as the cause of diseases classified elsewhere (ICD-10 - B96.89) Follow up with PCP or NATIONAL ACCOUNT DIRECTOR for further evaluation and management.10/28/2024 Vaginal discharge (ICD-10 - N89.8)Follow up in the clinic or with PCP as needed 10/28/2024Influenza vaccination declined (ICD-10 - Z28.21) The CDC recommends influenza (flu) vaccine every fall. [facility] provides influenza vaccination for all ages. You can schedule a vaccination only appointment at your convenience. 10/28/2024Other Nitrofurantoin Macrocrystals/Monohydrate Oral Capsule 25 mg/75 mg (NITROFURANTOIN/NITROFURANTOIN MACROCRYSTALS - ORAL) material was published, Tinidazole [...] your feedback regarding your experience at [facility]. Plan Of Treatment No Information Insurance Providers Payer Name Payer Address Payer Phone Subscriber Number Group Number Insured Name Patient Relationship to Insured Coverage Start Date Coverage End Date [facility] [employer] [employer] [place] [address] [place] [address] [id number] Yaima Callejas - patient is the insured Medical (General) History Medical History History ICD Code IBS (irritable bowel syndrome) K58.9 Endometriosis N80.9 History of strep pharyngitis Z87.09 Asthma, exercise induced J45.990 Surgical History Surgery Date(Month/Year) Elective Colonoscopyage - 12Hospitalization History Reason Date(Month/Year) colonoscopy
--- OUTSIDE RECORDS SUMMARY | 2025-08-28 08:55 | XMS_ITS | Clinical Summary ---
Author Organization [facility] Address [address] [place] [address] Care Team Providers Care Telesales Specialist Name Role Phone María Scales MD Primary Care Provider + [phone] Allergies Active AllergyReactionsCriticalityNoted CzkqWafebiafJzchskfurjLywbqvev14/13/2017 Throat swells up Medications MedicationSigDispense QuantityRefillsLast FilledStart DateEnd DateStatus ASCORBIC ACID/VITAMIN E/BIOTIN (HAIR, SKIN, NAILS WITH BIOTIN ORAL) Indications:DysuriaTake by mouth once daily.Active levonorgestrel (MIRENA) 20 mcg/24 hours (5 yrs) 52 mg IUD 1 Each by INTRAUTERINE route one time only.Active vitamin B complex (B COMPLEX 1 ORAL) Take by mouth.Active Zinc 50 mg tab Take by mouth.Active omega 3-mrh-nwf-fish oil (FISH OIL) 100-160-1,000 mg cap Take by mouth.Active phenazopyridine (PYRIDIUM) 200 mg tablet Take 1 tablet by mouth three times a day as needed. 6 tablet 5Active Active Problems ProblemNoted DateDiagnosed DateMigraine with aura07/01/2022 Assessment & Plan (07/01/2022 2:02 PM EDT): Assessment: states has migraines 1- 2 times weekly. She was given a PRN medication but cant remember name Iwcvlhamatkq45/06/2022 Assessment & Plan (07/01/2022 2:45 PM EDT): Assessment: Hx of palpations states had negative cardiac work up at [facility]- records reviewed andscanned Post-operative nausea and uzhozaxv80/06/2022 Assessment & Plan (07/01/2022 2:03 PM EDT): Assessment: states she vomits after every surgery - request pre-op medications Immunizations ImmunizationAdministration DatesNext DueHaemophilus influenzae b (HbOC) vaccine, 4-dose series (HIBTITER)06/02/1997diphtheria tetanus pertussis (DTaP) vaccine, unspecified jemltlwsibg40/31/2002,06/02/1997diphtheria tetanus pertussis- Haemophilus influenzae b (DTP-Hib) vaccine (TETRAMUNE)05/10/1996,03/07/1996, 1995hepatitis B (HepB) vaccine, 3-dose series, age 0 yr - 19 yr (ENGERIX B-PEDS, RECOMBIVAX HB-PEDS)05/10/1996,1995,1995measles mumps rubella (MMR) vaccine (M-M-R II, PRIORIX)06/24/2001,11/18/1996novel influenza (Y0D1-81) vaccine, live, nasal09/03/2009poliovirus (IPV) vaccine, inactivated (IPOL) 06/24/2001poliovirus (OPV) vaccine, trivalent, live, oral (ORIMUNE)06/02/1997, 05/10/1996,03/07/1996,1995tetanus diphtheria pertussis (Tdap) vaccine, age 7+ yr (ADACEL, BOOSTRIX)02/10/2018,02/07/2017 Family History Medical HistoryRelationCommentsAnesthesia ProblemsNo Family History Social History Tobacco UseTypesPacks/DayYears UsedDateSmoking Tobacco: NeverSmokeless Tobacco: Never Tobacco Cessation:Counseling Given: Not Answered Alcohol UseStandard Drinks/WeekCommentsYes0 (1 standard drink = 0.6 oz pure alcohol)twice weekly; 2-3 drinks per sitting.Area Deprivation IndexAnswerDate RecordedNational Score (1-100), lower number is lower jter974811/14/2024State Score (1-10), lower number is lower oqpa557Data from: https://www.neighborhoodatlas.[facility]/. Last address used for n[address]/14/2024CommentsNoSex and Gender Information ValueDate RecordedSex Assigned at BirthNot on fileLegal IqcSpfhvd28/10/2017 2:56 PM ESTGender IdentityNot on fileSexual OrientationNot on file Last Filed Vital Signs Vital SignReadingTime TakenCommentsBlood Ehuhxkpo820/71011/10/2024 1:59 PM EST Zzfuh649411/10/2024 1:59 PM QVXObispdqhqwh98.1 ??C (98.8 ??F)11/10/2024 1:59 PM ESTRespiratory Zbye731811/10/2024 1:59 PM ESTOxygen Eamqrfjjbi809%11/10/2024 1:59 PM ESTInhaled Oxygen Concentration--Evnket59.1 kg (128 lb)07/01/2022 1:36 PM EDT Zwimly096.6 cm (5' 4 )07/01/2022 1:36 PM EDTBody Mass Index21.9707/01/2022 1:36 PM EDT Plan of Treatment Health MaintenanceDue DateLast DoneCommentsAnxiety Tohqoaxic96/27/2013Depression Thmveskpc86/27/2013HIV Kfaspmuzc64/27/2013Hepatitis C Veznpjgdr79/27/2013 Cervical Cancer Qztwpcqtg50/27/2016HPV Vaccine (1 - 3-dose SCDM series) 2022ovid-19 Vaccine ( season)2025Influenza Vaccine (#1) /06/2009DTaP,Tdap,Td Vaccine (8 - Td or Tdap), 02/07/2017, 11/25/2001, Additional history existsHepatitis B VaccineCompleted 05/10/1996, 1995, 1995 Insurance Care Teams Team MemberRelationshipSpecialtyStart DateEnd Date María Scales MD [address] [place] [address] PCP - GeneralFamily Medicine07/01/22
--- OUTSIDE RECORDS SUMMARY | 2025-08-28 08:55 | XMS_ITS ---
Author Organization [facility] Source Produ ction (ClinicalSummary Clone) Address Unknown Care Team Providers Care Director Workers Compensation Name Role Phone Unavailable Primary Care Physician Unavailab le Results * [UNITY] ANEUPLOIDY NIPT Performed by: [employer] (now [employer]) Component Value Range Date Fraction 10.6% 03/26/2025 05:07 pm UTCRh(D) NIPTRhD MLUSHEHE23/01/2025 05:07 pm UTCSex Chromosome AneuploidyNOT OYHNUVIM81/01/2025 05:07 pm UTCMonosomy XLOW RISK <1 in , 05:07 pm UTCTrisomy 13LOW RISK <1 in , 05:07 pm UTCTrisomy 18LOW RISK <1 in , 05:07 pm UTCTrisomy 21LOW RISK <1 in 10, 05:07 pm UTCFetal MypQLOU2403/26/2025 05:07 pm UTCPregnancy ZnopsgivuRBASLJWMN77/01/2025 05:07 pm UTCFor detailed report, see PDFSee PDF 03/26/2025 05:07 pm UTC03/26/2025 05:07 pm UTC Social History Observation Value Start Date End Date
--- OUTSIDE RECORDS SUMMARY | 2025-08-28 08:55 | XMS_ITS | Encounter Summary ---
Author Organization [facility] Address [address] [facility] [place] [address] Care Team Providers Care Laborer Laboratory Name Role Phone María Scales MD Primary Care Provider [phone] Heydi Meyer MD, IBCLC Unavailable + [phone] Encounter Details DateTypeDepartmentCare Team (Latest Contact Info)Vfqtgbynjyk46/29/2025Telephone [facility] [address] [place] [address] Diaz Mathis DO [address] [place] [address] Social History Tobacco UseTypesPacks/DayYears UsedDateSmoking Tobacco: NeverSmokeless Tobacco: NeverAlcohol UseStandard Drinks/WeekCommentsNever0 (1 standard drink = 0.6 oz pure alcohol)caffeine intake : noneEstimated Date of DeliveryCommentsYes 5Based on last menstrual period of 01/01/2025Sex and Gender Information ValueDate RecordedSex Assigned at BirthNot on fileLegal ZrxIcrsmd93/15/2023 7:39 PM EDTGender RezxytcjBwswmg11/15/2023 7:39 PM EDTSexual OrientationNot on file documented as of this encounter Miscellaneous Notes * Telephone Encounter - Carolyn Dawson LPN - 08/23/2025 2:47 PM EDT Patient called and she states that she started to leak last night and not super heavy but mini pad is damp and has had to change and baby is kicking. Patient advised to head over to be checked. [facility] called and spoke with Zuleyma and gave her a report and advised would send history on her. documented in this encounter Plan of Treatment DateTypeDepartmentCare Team (Latest Contact Info)Vnhdhbsnbok44/10/2025 9:30 AM ESTAncillary Procedure [facility] [address] [place] [address] [place] [address] 09/11/2025 10:20 AM ESTRoutine [facility] [address] [place] [address] [place] [address] Melba Goff PA [address] [facility] [place] [address] 09/18/2025 10:40 AM ESTRoutine [facility] [address] [place] [address] [place] [address] Diaz Mathis, [address] [place] [address] 09/28/2025 10:40 AM ESTRoutine [facility] [address] [place] [address] [place] [address] Diaz Mathis, DO [address] [place] [address] [place] [address] 10/02/2025 10:30 AM ESTRoutine [facility] [address] [place] [address] [place] [phone] Melba Goff PA [address] [facility] [place] [address] documented as of this encounter Visit Diagnoses Not on filedocumented in this encounter Care Teams Team MemberRelationshipSpecialtyStart DateEnd Date María Scales MD [address] [place] [address] PCP - GeneralFamily Medicine03/03/23 Heydi Meyer MD, IBCLC [address] [place] [address] Family Bqlqssdq40/18/23documented as of this encounter
--- OUTSIDE RECORDS SUMMARY | 2025-08-28 08:55 | XMS_ITS | Encounter Summary ---
Author Organization [facility] Address [address] [facility] [place] [address] Care Team Providers Care Internet Database Specialist Name Role Phone María Scales MD Primary Care Provider [phone] Heydi Meyer MD, IBCLC Unavailable +- [phone] Encounter Details DateTypeDepartmentCare Team (Latest Contact Info)Peenngsxssd77/28/2025amboo flowsheet [facility] [address] [place] [address] Diaz Mathis DO [address] [place], [place] [address]R[address], [place] [id number] Social History Tobacco UseTypesPacks/DayYears UsedDateSmoking Tobacco: NeverSmokeless Tobacco: NeverAlcohol UseStandard Drinks/WeekCommentsNever0 (1 standard drink = 0.6 oz pure alcohol)caffeine intake : noneEstimated Date of DeliveryCommentsYes 5Based on last menstrual period of 01/01/2025Sex and Gender Information ValueDate RecordedSex Assigned at BirthNot on fileLegal ImwCcajrx25/15/2023 7:39 PM EDTGender VctojvotXesgme61/15/2023 7:39 PM EDTSexual OrientationNot on file documented as of this encounter Plan of Treatment DateTypeDepartmentCare Team (Latest Contact Info)Qqizmeduyos46/10/2025 9:30 AM ESTAncillary Procedure [facility] [address] [place] [address] 09/11/2025 10:20 AM ESTRoutine [facility] [address] [place] [address] Melba Goff, PA [address] [facility] [place] [address] 09/18/2025 10:40 AM ESTRoutine [facility] [address] [facility] [place] [address] Diaz Mathis, DO [address] [facility] [place] [address] 09/28/2025 10:40 AM ESTRoutine [facility] [address] [facility] [place] [phone] Diaz Mathis, DO [address] [facility] [place] [address] 10/02/2025 10:30 AM ESTRoutine [facility] [address] [place] [address] [place] [address] Melba Goff, PA [address] [facility] [place] [address] documented as of this encounter Visit Diagnoses Not on filedocumented in this encounter Care Teams Team MemberRelationshipSpecialtyStart DateEnd Date María Scales MD [address] [place] [address] PCP - GeneralFamily Medicine03/03/23 Heydi Meyer MD, IBCLC [address] [place], [place] [address] Family Bgoknbba96/18/23documented as of this encounter
--- OUTSIDE RECORDS SUMMARY | 2025-08-28 08:55 | XMS_ITS | Clinical Summary ---
Author Organization [facility] Address [address] [place] [address] Care Team Providers Care Admissions Supervisor Name Role Phone María Scales MD Primary Care Provider Heydi Meyer MD, IBCLC Unavailable [phone] Allergies Active AllergyReactionsCriticalityNoted XxoqIeqczuecIihabtjqiZulkdilk47/09/2023 Other Reaction(s): Swelling CephalexinSwelling,PfozcnkquuxQlam09/12/2017 Throat swells up Other Reaction(s): face swelling, Swelling of Lip/Tongue/Throat, Swelling of Lip/Tongue/Throat, anaphylaxis, Unknown RbtanxuYxiig04/22/0275KxjjktkzzmcobPjjjhjoq12/20/2025 Medications MedicationSigDispense QuantityRefillsLast FilledStart DateEnd DateStatus Vit-Fe Fumarate-FA ( Vitamins) 28-0.8 MG tablet Indications:, unspecified gestational age ([facility])Take 1 tablet by mouth Daily 30 tablet 1107//799237/6Active Active Problems ProblemNoted DateDiagnosed DateOSA (obstructive sleep apnea)06/06/2024 Psychophysiological jnrcelld37/18/2023 Assessment & Plan (10/12/2023 12:51 PM EST): Likely secondary to anxiety and panic disorder. See below. We did review sleep hygiene and supplements that may help with insomnia, including magnesium, melatonin, Ashwaganda. No clinical sign of obstructive sleep apnea Nrstdlqoopo50/26/2023nxiety and dpghrlfbod93/26/2023nxiety disorder, fraijkxmbpv00/26/2023AD (generalized anxiety disorder)07/21/2023 Assessment & Plan (10/12/2023 12:49 PM EST): Uncontrolled. Patient is most bothered by panic attacks?? which occur 3-4 times per month. Also [...] hydroxyzine versus benzodiazepine, and given its safety profile,we agreed to try hydroxyzine. We discussed the risks and benefits of this medication, appropriate use of frequency, and potential side effects. Patient would like to try this. Rx sent. Encouraged herto follow-up in 2-3 wants to evaluate response. If symptoms occur more frequently, may need to reconsider controller medication ADHD (attention deficit hyperactivity disorder), inattentive type07/21/2023 Attention deficit hyperactivity disorder (ADHD), combined type07/21/2023 Zfrxqlgnnpny91/26/4719Hqtwaeeifsyfu37/26/2023Female infertility associated with lmffiummiki43/26/2023Fibrocystic breast, right07/21/2023Heavy menstrual bleeding 07/21/2023Intranasal mass07/21/2023Major depressive disorder, single episode, vbxihhssalp65/26/2023Migraine without aura and without status migrainosus, not zytibjsnzns31/26/2023Moderate episode of recurrent major depressive disorder 07/21/2023Nasal /26/2023Raynaud's phenomenon without gangrene 07/21/2023Migraine with aura07/01/2022 Overview (07/21/2023): Last Assessment & Plan: Assessment: states has migraines 1- 2 times weekly. She was given a PRN medication but cant remember name Opkxwrufuuvz78/06/2022 Overview (07/21/2023): Last Assessment & Plan: Assessment: Hx of palpations states had negative cardiac work up at [facility]- records reviewed and scanned Post-operative nausea and urcvlngk71/06/2022 Overview (07/21/2023): Last Assessment & Plan: Assessment: states she vomits after every surgery - request pre-op medications Estimated Date of OlbtbzlbTpwevvauKpk40/14/2025Based on last menstrual period of 01/01/2025 Encounters DateTypeDepartmentCare MxqmJrqkyohhlkq85/29/2025Telephone [facility] [place] [phone] Rosina Mathis, 08/22/2025 10:10 AM [place]TR[place] [phone] Rosina Mathis, Excessive growth affecting management of in third trimester, single or unspecified fetus ([facility]) (Primary Dx); Third trimester ([facility]); 33 weeks gestation of ([facility])08/22/2025amboo flowsheet [facility] [place] [address] Rosina Mathis, 08/09/2025 2:30 PM EDTRoutine [facility] [phone] Rosina Mathis, Third trimester ([facility]); 31 weeks gestation of ([facility])08/09/2025amboo flowsheet [facility] [address] [facility] [place] [address] Rosina Mathis, 08/07/2025Telephone [facility] [address] [place] [address] Rosina Mathis, 5Clinisync Result Encounter NOM[facility] External Department Unsolicited Rosina Mathis, DO 08/02/2025linisync Result Encounter NOMS External Department Unsolicited Rosina Mathis, DO 08/02/2025Telephone [facility] [address] [facility] [address] Saloni Ortega MA 5Abstract [facility] [address] [facility] [address] Kellee Whipple MA 07/19/2025 11:20 AM EDTRoutine [facility] [place] [address] [facility] [address] Rosina Mathis, Third trimester ([facility]); 28 weeks gestation of ([facility]); size inconsistent with dates ([facility])07/19/2025amboo flowsheet [facility] [address] [facility] [address] Rosina Mathis, 07/04/2025 10:30 AM EDTRoutine [facility] [address] [facility] [address] Melba Goff PA 26 weeks gestation of ([facility]); Second trimester ([facility])07/04/2025amboo flowsheet [facility] [place] [facility] [address] [facility] [address] Melba Goff PA 5Clinisync Result Encounter NOM[facility] External Department Unsolicited Rosina Mathis, DO 06/27/2025Telephone [facility] [place] [facility] [address] [facility] [address] Kellee Whipple MA 5Clinisync Result Encounter NOMS External Department Unsolicited Rosina Mathis, DO 06/20/2025Telephone [facility] [address] [facility] [address] Rosina Mathis DO 06/06/2025 10:10 AM EDTRoutine [facility] [place] [address] Rosina Mathis DO 22 weeks gestation of ([facility]); Second trimester ([facility]); Diabetes mellitus iyynbbyct20/12/2025Bamboo flowsheet [facility] [place] [address] Rosina Mathis DO from Last 3 Months Immunizations ImmunizationAdministration DatesNext DueDTP / HiB05/10/1996,03/07/1996, 1995DTaP, Mjwkmrspjzn54/31/2002,06/02/1997Hep B, Adolescent or Pediatric 05/10/1996,1995,1995Hib ([facility])06/02/1997IPV06/24/2001MMR06/24/2001, 11/18/1996Novel Alitplmmw-R5M0-42, nasal09/03/2784XFB8206/02/1997,05/10/1996, 03/07/1996,1995Tdap02/10/2018,02/07/2017 Family History Medical HistoryRelationNameCommentsHeart diseaseBrother1 brother had heart surgery at age 6Breast cancerFather's SisterCancerMaternal GrandfatherHeart diseaseMaternal GrandfatherMelanomaMaternal GrandfatherStrokeMaternal GrandfatherColon cancerMaternal GrandmotherHeart diseasePaternal Grandfather StrokePaternal GrandmotherNo Known ProblemsSonRelationNameStatusCommentsBrother3 brothersFatherAliveFather's SisterAliveMaternal GrandfatherAliveMaternal GrandmotherDeceasedMotherAlivePaternal GrandfatherDeceasedPaternal Grandmother AliveSonAlive2 sons Social History Tobacco UseTypesPacks/DayYears UsedDateSmoking Tobacco: NeverSmokeless Tobacco: Never Tobacco Cessation:Counseling Given: Not Answered Alcohol UseStandard Drinks/WeekCommentsNever0 (1 standard drink = 0.6 oz pure alcohol)caffeine intake : noneEstimated Date of DeliveryCommentsYes 5Based on last menstrual period of 01/01/2025Sex and Gender Information ValueDate RecordedSex Assigned at BirthNot on fileLegal QtzRxwmaw13/15/2023 7:39 PM EDTGender AtdtbqjoVaaagt80/15/2023 7:39 PM EDTSexual OrientationNot on file Last Filed Vital Signs Vital SignReadingTime TakenCommentsBlood Torjmcef555/7210 10:35 AM EDT Ngedi6136/19/2025 2:47 PM NXZYcjcolhznem17.8 ??C (96.5 ??F)03/13/2025 2:47 PM EDTRespiratory Joex037803/13/2025 2:47 PM EDTOxygen Mkdqdoavix99%03/13/2025 2:47 PM EDTInhaled Oxygen Concentration--Owsjfx60.5 kg (159 lb 12 oz)08/22/2025 10:35 AM PQXRxuxlz351.6 cm (5' 4 )03/13/2025 2:47 PM EDTBody Mass Index27.42003/13/2025 2:47 PM EDT Plan of Treatment DateTypeDepartmentCare Team (Latest Contact Info)Shojcdbllde91/10/2025 9:30 AM ESTAncillary Procedure LACY ESQUIVEL [address] [place] [address] [place] [address] 09/11/2025 10:20 AM ESTRoutine NOMDavid ESQUIVEL [address] [place] [address] [place] [address] Melba Goff PA [address] [facility] [address] [place], [place] [phone] 09/18/2025 10:40 AM ESTRoutine NOMDavid ESQUIVEL [address] [place] [address] [place] [address] Rosina Mathis, [address] [facility] [place] [address] 09/28/2025 10:40 AM ESTRoutine [facility] [address] [place] [address] [place] [phone] Rosina Mathis DO [address] [facility] [place] [address] 10/02/2025 10:30 AM ESTRoutine [facility] [address] [facility] [phone] Melba Goff PA [address] [facility] [place] [address] Health MaintenanceDue DateLast DoneCommentsVaricella Vaccines (1 of 2 - 13+ 2- dose series)10/01/2009Pneumococcal Vaccine: Pediatrics (0 to 5 Years) and At- Risk Patients (6 to 64 Years) (1 of 2 - PCV)2014HPV Vaccines (1 - 3-dose SCDM series)2022OVID-19 Vaccine ( - season)2025Influenza Vaccine (#1)DTaP/Tdap/Td Vaccines (8 - Td or Tdap)02/11/2028 02/10/2018, 02/07/2017, 11/25/2001, Additional history existsHepatitis B UdoupgukFeyxeexgl72/16/1996, 1995, 1995HIB VaccinesCompleted 06/02/1997, 05/10/1996, 03/07/1996, Additional history existsIPV Vaccines Nmctwcftg22/30/2001, 06/02/1997, 05/10/1996, Additional history existsMMR BfedmfuuUshfwabud02/30/2001, 11/18/1996Hepatitis A VaccinesAged OutNo longer eligible based on patient's age to complete this topicMeningococcal B Vaccine Aged OutNo longer eligible based on patient's age to complete this topic Meningococcal VaccineAged OutNo longer eligible based on patient's age to complete this topicRotavirus VaccinesAged OutNo longer eligible based on patient's age to complete this topic Procedures Procedure NamePriorityDate/TimeAssociated DiagnosisCommentsPOCT URINALYSIS BSYZBHEWKodhpio12/28/2025 10:53 AM EDT Third trimester ([facility]) POCT URINALYSIS ZFZCSIPAQbdfclu73/15/2025 2:50 PM EDT Third trimester ([facility]) US OB MJFXMPVO68/08/2025 11:30 AM EDT OB SYHUJH6108/02/2025 11:30 AM EDT POCT URINALYSIS ADQEUGCMQpahhaf37/24/2025 11:47 AM EDT Third trimester ([facility]) POCT URINALYSIS XHYTAEQKYssbjvz85/09/2025 10:55 AM EDT 26 weeks gestation of ([facility]) GLUCOSE TOLERANCE 3 YENBVfelent25/03/2025 10:08 AM EDT ALL THYROXINE (T4) HQNPQalrrqh61/28/2025 11:49 AM EDT ALL THYROID STIM CBXESMZGuoafri69/28/2025 11:49 AM EDT GLUCOSE 1 KPCAStfrcpo60/28/2025 11:49 AM EDT ALL CBC WITH AUTO CQUACmjzhck52/28/2025 11:49 AM EDT POCT URINALYSIS TLAAZMHPXoybdpy06/12/2025 10:42 AM EDT 22 weeks gestation of ([facility]) Second trimester ([facility]) from Last 3 Months Results * POCT urinalysis dipstick manually resulted (08/22/2025 10:53 AM EDT) Only the most recent of5 resultswithin the time period is included. ComponentValueRef RangeTest MethodAnalysis TimePerformed AtPathologist Signature Color, UAYellowClarity, UAClearGlucose, UANegativeNegative - 1999(110) ++++ mg/dLBilirubin, UANegativeNegative - 4(70) +++ mg/dLKetones, UANegativeNegative - 160(16) ++++ mg/dLSpec Grav, UA1.0001 - 1.03Blood, UANegativeNegative - 50 Ortega/mcLpH, UA6.55 - 9Protein, UANegativeNegative - 2000(20) ++++ mg/dL Urobilinogen, UA0.20.2 - 12 mg/dLLeukocytes, UANegativeNegative - 500+++ Fidencio/mcL Nitrite, UANegativeNegative - PositiveSpecimen (Source)Anatomical Location / LateralityCollection Method / VolumeCollection TimeReceived EdgqXydmo18/28/2025 10:53 AM EDT Narrative Authorizing ProviderResult TypeResult StatusCorey [facility] DOPOINT OF CARE TEST ENTER/EDIT ORDERABLESFinal Result * US OB PLACENTA (08/02/2025 11:30 AM EDT)Anatomical RegionLateralityModality OtherSpecimen (Source)Anatomical Location / LateralityCollection Method / VolumeCollection TimeReceived Time08/02/2025 11:30 AM EDT Narrative 08/02/2025 11:33 AM EDT [facility] ?[address] ? [place] [address] ? Ultrasound Report ? Signed ? Patient: RAJANI SANCHEZ ?MR#: [id number] ?? : 1995 ?Acct:[id number] ?? Age/Sex: 29 / F ?ADM Date: 08/02/25 ?? Loc: US ? Attending Dr: Rosina Mathis D.O. ? Ordering Physician: Rosina Mathis D.O. ?? Date of Service: 08/02/25 ?? Procedure(s): US OB placenta ?? Accession Number(s): [id number] ? cc: Rosina Mathis D.O.; Physician,Non-Staff M.D. ? [facility] ? [address] ? [place] [address] ? Patient Name: ?? RAJANI ??LAURA ? MRN: [facility]:[id number] ? date: 1995 ?Sex: F ?? Assigned Patient Location: US ?? Current Patient Location: US ?? Accession/Order Number: [id number] ?? Exam Date: 08/02/2025 ??10:52 ?Report Date: 08/02/2025 ??11:30 ? At the request of: ?? ROSINA ??DELFINA ??DO ? Procedure: ??US OB placenta ? CLINICAL DATA: patient with spotting for one day ? COMPARISON: None ? ULTRASOUND OB GROWTH ? There is a single live intrauterine gestation in cephalic presentation. ??The ?? cervix is closed with estimated length of 4.5 cm. ??There is cardiac and ?? somatic activity with heart rate of 145 bpm. ??The placenta is anterior. ??The ?? amniotic fluid index measures 13.5 cm which is in normal range. ??The ovaries ?? were not imaged. ??There is no free fluid. ?? The following measurements were obtained: ?? Biparietal diameter ? 8.1 cm ?? 32 weeks 4 days ? 93% ?? Head circumference ? 29.5 cm ?? 32 weeks 4 days ? 74% ?? Abdominal circumference ?28.5 cm ?? 32 weeks 4 days ? 94% ?? Femur length ?6.0 cm ?? 31 weeks 2 days ? 59% ?? The composite ultrasound age based on these measurements is 32 weeks 2 days ?? +/- 2 weeks 2 days. ??The estimated date of delivery is 09/25/2025. ??The ?? reported gestational age should be 30 weeks 3 days however there are no prior ?? studies for correlation. ??The estimated weight is 4 lbs. 4 oz. +/- 10 ?? ounces (91%). ? US/US OB placenta ?? IMPRESSION: ? SINGLE LIVE INTRAUTERINE GESTATION WITH TODAY'S ULTRASOUND AGE OF 32 WEEKS 2 ?? DAYS. ? ULTRASOUND PLACENTA ? There is an anterior placenta which is normal in position and appearance. ? There is no evidence of previa. ? IMPRESSION: ? UNREMARKABLE PLACENTA. ? Impression dictated by: Sara Galeano M.D. ??08/02/2025 11:30 AM ? Dictation Location: [place] [address] ? Electronically authenticated by: [id number] ??Y ?? Date: 08/02/2025 ??11:30 ? Dictated By: ?Sara Galeano M.D. ? Signed By: ?08/02/25 1133 ? DD/ 1130 ? TD/TT: ? Exec. Creative Director: Procedure Note Radiology, Radiologist, - 08/02/2025 [place] [address] Ultrasound Report Signed Patient: ANGEL SANCHEZ#: [id number] : 1995Acct:[id number] Age/Sex: 29 / FADM Date: 08/02/25 Loc: US Attending Dr: Rosina Mathis D.O. Ordering Physician: Rosina Mathis D.O. Date of Service: 08/02/25 Procedure(s): US OB placenta Accession Number(s): [id number] cc: Rosina Mathis D.O.; Physician,Non-Staff M.DSmita The [place] [id number] Patient Name: RAJANI SANCHEZ MRN: [id number] date: 1995 Sex: F Assigned Patient Location: US Current Patient Location: US Accession/Order Number: [id number] Exam Date: 08/02/2025 10:52 Report Date: 08/02/2025 11:30 At the request of: ROSINA MATHIS DO Procedure: US OB placenta CLINICAL DATA: patient with spotting for one day COMPARISON: None ULTRASOUND OB GROWTH There is a single live intrauterine gestation in cephalic presentation.The cervix is closed with estimated length of 4.5 cm. There is cardiacand somatic activity with heart rate of 145 bpm. The placenta is anterior.The amniotic fluid index measures 13.5 cm which is in normal range. Theovaries were not imaged. There is no free fluid. The following measurements were obtained: Biparietal diameter 8.1 cm 32 weeks 4 days 93% Head circumference 29.5 cm 32 weeks 4 days 74% Abdominal circumference 28.5 cm 32 weeks 4 days 94% Femur length 6.0 cm 31 weeks 2 days 59% The composite ultrasound age based on these measurements is 32 weeks 2days +/- 2 weeks 2 days. The estimated date of delivery is 09/25/2025. The reported gestational age should be 30 weeks 3 days however there are noprior studies for correlation. The estimated weight is 4 lbs. 4 oz. +/-10 ounces (91%). US/US OB placenta IMPRESSION: SINGLE LIVE INTRAUTERINE GESTATION WITH TODAY'S ULTRASOUND AGE OF 32 WEEKS2 DAYS. ULTRASOUND PLACENTA There is an anterior placenta which is normal in position and appearance. There is no evidence of previa. IMPRESSION: UNREMARKABLE PLACENTA. Impression dictated by: Sara Galeano M.D. 08/02/2025 11:30 AM Dictation Location: [place] [address] Electronically authenticated by: [id number] Y Date: 1:30 Dictated By: Sara Galeano M.D. Signed By:08/02/25 1133 DD/ 1130 TD/TT: Exec. Creative Director: Authorizing ProviderResult TypeResult StatusCorey Delfina DOCLINISYNC IMAGINGFinal Result * US OB GROWTH (08/02/2025 11:30 AM EDT)Anatomical RegionLateralityModalityOther Specimen (Source)Anatomical Location / LateralityCollection Method / Volume Collection TimeReceived Time08/02/2025 11:30 AM EDT Narrative 08/02/2025 11:33 AM EDT [facility] ?[address] ? [place] [address] ? Ultrasound Report ? Signed ? Patient: RAJANI SANCHEZ ?MR#: [id number] ?? : 1995 ?Acct:[id number] ?? Age/Sex: 29 / F ?ADM Date: 08/02/25 ?? Loc: US ? Attending Dr: Rosina Mathis D.O. ? Ordering Physician: Rosina Mathis D.O. ?? Date of Service: 08/02/25 ?? Procedure(s): US OB growth ?? Accession Number(s): [id number] ? cc: Rosina Mathis D.O.; Physician,Non-Staff MJune ? [facility] ? [address] ? [place] [address] ? Patient Name: ?? RAJANI ??SANCHEZ ? MRN: [facility]:[id number] ? date: 1995 ?Sex: F ?? Assigned Patient Location: US ?? Current Patient Location: US ?? Accession/Order Number: [id number] ?? Exam Date: 08/02/2025 ??10:52 ?Report Date: 08/02/2025 ??11:30 ? At the request of: ?? ROSINA ??DELFINA ??DO ? Procedure: ??US OB placenta ? CLINICAL DATA: patient with spotting for one day ? COMPARISON: None ? ULTRASOUND OB GROWTH ? There is a single live intrauterine gestation in cephalic presentation. ??The ?? cervix is closed with estimated length of 4.5 cm. ??There is cardiac and ?? somatic activity with heart rate of 145 bpm. ??The placenta is anterior. ??The ?? amniotic fluid index measures 13.5 cm which is in normal range. ??The ovaries ?? were not imaged. ??There is no free fluid. ?? The following measurements were obtained: ?? Biparietal diameter ? 8.1 cm ?? 32 weeks 4 days ? 93% ?? Head circumference ? 29.5 cm ?? 32 weeks 4 days ? 74% ?? Abdominal circumference ?28.5 cm ?? 32 weeks 4 days ? 94% ?? Femur length ?6.0 cm ?? 31 weeks 2 days ? 59% ?? The composite ultrasound age based on these measurements is 32 weeks 2 days ?? +/- 2 weeks 2 days. ??The estimated date of delivery is 09/25/2025. ??The ?? reported gestational age should be 30 weeks 3 days however there are no prior ?? studies for correlation. ??The estimated weight is 4 lbs. 4 oz. +/- 10 ?? ounces (91%). ? US/US OB growth ?? IMPRESSION: ? SINGLE LIVE INTRAUTERINE GESTATION WITH TODAY'S ULTRASOUND AGE OF 32 WEEKS 2 ?? DAYS. ? ULTRASOUND PLACENTA ? There is an anterior placenta which is normal in position and appearance. ? There is no evidence of previa. ? IMPRESSION: ? UNREMARKABLE PLACENTA. ? Impression dictated by: Sara Galeano M.D. ??08/02/2025 11:30 AM ? Dictation Location: [place] [address] ? Electronically authenticated by: [id number] ??Y ?? Date: 08/02/2025 ??11:30 ? Dictated By: ?Sara Galeano M.D. ? Signed By: ?08/02/253 ? DD/ 1130 ? TD/TT: ? Exec. Creative Director: Procedure Note Radiology, Radiologist, - 08/02/2025 [place] [address] Ultrasound Report Signed Patient: ANGEL SANCHEZ#: [id number] : 1995Acct:[id number] Age/Sex: 29 / FADM Date: 08/02/25 Loc: US Attending Dr: Rosina Mathis D.O. Ordering Physician: Rosina Mathis D.O. Date of Service: 08/02/25 Procedure(s): US OB growth Accession Number(s): [id number] cc: Rosina Mathis D.O.; Physician,Non-Staff M.DSmita [facility] [place] [id number] Patient Name: RAJANI SANCHEZ MRN: [id number] date: 1995 Sex: F Assigned Patient Location: US Current Patient Location: US Accession/Order Number: [id number] Exam Date: 08/02/2025 10:52 Report Date: 08/02/2025 11:30 At the request of: ROSINA MATHIS DO Procedure: US OB placenta CLINICAL DATA: patient with spotting for one day COMPARISON: None ULTRASOUND OB GROWTH There is a single live intrauterine gestation in cephalic presentation.The cervix is closed with estimated length of 4.5 cm. There is cardiacand somatic activity with heart rate of 145 bpm. The placenta is anterior.The amniotic fluid index measures 13.5 cm which is in normal range. Theovaries were not imaged. There is no free fluid. The following measurements were obtained: Biparietal diameter 8.1 cm 32 weeks 4 days 93% Head circumference 29.5 cm 32 weeks 4 days 74% Abdominal circumference 28.5 cm 32 weeks 4 days 94% Femur length 6.0 cm 31 weeks 2 days 59% The composite ultrasound age based on these measurements is 32 weeks 2days +/- 2 weeks 2 days. The estimated date of delivery is 09/25/2025. The reported gestational age should be 30 weeks 3 days however there are noprior studies for correlation. The estimated weight is 4 lbs. 4 oz. +/-10 ounces (91%). US/US OB growth IMPRESSION: SINGLE LIVE INTRAUTERINE GESTATION WITH TODAY'S ULTRASOUND AGE OF 32 WEEKS2 DAYS. ULTRASOUND PLACENTA There is an anterior placenta which is normal in position and appearance. There is no evidence of previa. IMPRESSION: UNREMARKABLE PLACENTA. Impression dictated by: Sara Galeano M.D. 08/02/2025 11:30 AM Dictation Location: [place] [address] Electronically authenticated by: [id number] Y Date: 1:30 Dictated By: Sara Galeano M.D. Signed By:08/02/25 1133 DD/ 1130 TD/TT: Exec. Creative Director: Authorizing ProviderResult TypeResult StatusCorey Delfina DOCLINISYNC IMAGINGFinal Result * (ABNORMAL) GLUCOSE TOLERANCE 3 HOUR (06/28/2025 10:08 AM EDT)ComponentValueRef RangeTest MethodAnalysis TimePerformed AtPathologist SignatureGLUCOSE TOLERANCE 3 HOUR(H)mg/dLTBHComment: GLU FAST 75 (<95) Col: 06/28/25 1008 GLU 1HR 115 (<180) Col: 06/28/25 1118 GLU 2HR 161H (<155) Col: 06/28/25 1216 GLU 3HR 108 (<140) Col: 06/28/25 1319 Specimen (Source)Anatomical Location / LateralityCollection Method / Volume Collection TimeReceived Time06/28/2025 10:08 AM EDT06/28/2025 10:38 AM EDT Narrative [facility] - 06/28/2025 3:24 PM EDT Authorizing ProviderResult TypeResult StatusCorey Delfina DOLAB BLOOD ORDERABLES Final ResultPerforming OrganizationAddressCity/State/ZIP CodePhone Number [facility] * (ABNORMAL) GLUCOSE 1 HOUR (06/22/2025 11:49 AM EDT)ComponentValueRef RangeTest MethodAnalysis TimePerformed AtPathologist SignatureGLUCOSE 1 NMNO149(H)<130 mg/dLTBHSpecimen (Source)Anatomical Location / LateralityCollection Method / VolumeCollection TimeReceived Time06/22/2025 11:49 AM EDT06/22/2025 11:52 AM EDT Narrative [facility] - 06/22/2025 12:39 PM EDT Authorizing ProviderResult TypeResult StatusCorey Delfina DOLAB BLOOD ORDERABLES Final ResultPerforming OrganizationAddressCity/State/ZIP CodePhone Number [facility] * ALL THYROXINE (T4) FREE (06/22/2025 11:49 AM EDT)ComponentValueRef RangeTest MethodAnalysis TimePerformed AtPathologist SignatureFREE T40.850.76 - 1.46 ng/dLTBHSpecimen (Source)Anatomical Location / LateralityCollection Method / VolumeCollection TimeReceived Time06/22/2025 11:49 AM EDT06/22/2025 11:52 AM EDT Narrative [facility] - 06/22/2025 1:07 PM EDT Authorizing ProviderResult TypeResult StatusCorey Delfina DOCLINISYNCFinal Result Performing OrganizationAddressCity/State/ZIP CodePhone Number [facility] * ALL THYROID STIM HORMONE (06/22/2025 11:49 AM EDT)ComponentValueRef RangeTest MethodAnalysis TimePerformed AtPathologist SignatureTHYROID STIMULATING HORMONE0.8710.358 - 3.740 uIU/mLTBHSpecimen (Source)Anatomical Location / LateralityCollection Method / VolumeCollection TimeReceived Time06/22/2025 11:49 AM EDT06/22/2025 11:52 AM EDT Narrative [facility] - 06/22/2025 12:39 PM EDT Authorizing ProviderResult TypeResult StatusCorey Delfina DOCLINISYNCFinal Result Performing OrganizationAddressCity/State/ZIP CodePhone Number [facility] * (ABNORMAL) ALL CBC WITH AUTO DIFF (06/22/2025 11:49 AM EDT)ComponentValueRef RangeTest MethodAnalysis TimePerformed AtPathologist SignatureTBH WBC7.64.0 - 11.0 10 3/uLTBHTBH RBC3.96(L)4.20 - 5.40 10 6/uLTBHTBH HGB12.912.0 - 16.0 g/dL TBHTBH HCT37.236.0 - 48.0 %TBHTBH MCV93.981.0 - 99.0 fLTBHTBH MCH32.626.7 - 34.0 pgTBHTBH MCHC34.729.9 - 35.2 g/dLTBHTBH RDW12.611.0 - 15.0 %TBHTBH QIZ564 150 - 450 10 3/uLTBHTBH MPV8.8(L)9.5 - 13.5 fLTBHNEUTROPHILS PERCENT AUTO69.1 43.0 - 75.0 %TBHLYMPHOCYTES PERCENT AUTO23.620.5 - 60.0 %TBHMONOCYTES PERCENT AUTO4.91.7 - 12.0 %TBHTBH EO %1.60.9 - 7.0 %TBHBASOPHILS PERCENT AUTO0.30.2 - 2.0 %TBHIMMATURE GRANULOCYTES PCT AUTO0.50.0 - 0.5 %TBHNEUTROPHILS ABSOLUTE AUTO5.31.4 - 6.5 10 3/uLTBHLYMPHOCYTES ABSOLUTE AUTO1.81.2 - 3.8 10 3/uLTBH MONOCYTES ABSOLUTE AUTO0.40.3 - 0.8 10 3/uLTBHTBH EO #0.10.0 - 0.7 10 3/uLTBH BASOPHILS ABSOLUTE AUTO0.00.0 - 0.1 10 3/uLTBHIMMATURE GRANULOCYTES ABS AUTO 0.04(H)0.00 - 0.03 10 3/uLTBHSpecimen (Source)Anatomical Location / Laterality Collection Method / VolumeCollection TimeReceived Time06/22/2025 11:49 AM EDT 06/22/2025 11:52 AM EDT Narrative [facility] - 06/22/2025 12:02 PM EDT Authorizing ProviderResult TypeResult StatusCorey Delfina DOCLINISYNCFinal Result Performing OrganizationAddressCity/State/ZIP CodePhone Number [facility] from Last 3 Months Insurance Care Teams Team MemberRelationshipSpecialtyStart DateEnd Date María Scales MD [address] [place] [address] PCP - GeneralFamily Medicine03/03/23 Heydi Meyer MD, IBCLC [address] [place] [address] Family Sastsvil77/18/23
[2025-08-28 09:30] VITALS: BP 117/71; PULSE 88
== END 2025-08-28 09:55 | disposition home or self-care (01) ==
LOC: US 08:53 → FBC 08:56
PROVIDERS: Visit Provider Obstetrics & Gynecology
DX: O36.63X0 Maternal care for excessive fetal growth, third trimester, not applicable or unspecified (principal); Z3A.34 34 weeks gestation of pregnancy
CPT/HCPCS: 76818

== ENCOUNTER 2025-09-04 09:40 | Outpatient (OUT) | payer OTHER, SELFPAY ==
--- OUTSIDE RECORDS SUMMARY | 2025-08-22 09:10 | XMS_ITS | Encounter Summary ---
Author Organization [facility] Address [address] [place] [address] Care Team Providers Care Nuclear Fuel Processing Technician Name Role Phone María Scales MD Primary Care Provider [phone] Heydi Meyer MD, IBCLC Unavailable +- [phone] Reason for Visit * ReasonCommentsRoutine Visit Encounter Details DateTypeDepartmentCare Team (Latest Contact Info)Eukbdmnpuod52/28/2025 10:10 AM EDTRoutine [facility] Lonnie OBGYN [address] [facility] [place] [place] [address] Diaz Mathis DO [address] [facility] [place] [address] Excessive growth affecting management of in third trimester, single or unspecified fetus (HHS-HCC) (Primary Dx); Third trimester (HHS-HCC); 33 weeks gestation of ([facility]) Social History Tobacco UseTypesPacks/DayYears UsedDateSmoking Tobacco: NeverSmokeless Tobacco: NeverAlcohol UseStandard Drinks/WeekCommentsNever0 (1 standard drink = 0.6 oz pure alcohol)caffeine intake : noneEstimated Date of DeliveryCommentsYes 5Based on last menstrual period of 01/01/2025Sex and Gender Information ValueDate RecordedSex Assigned at BirthNot on fileLegal NeyIdyram89/15/2023 7:39 PM EDTGender CbcrhlljUpnxxt32/15/2023 7:39 PM EDTSexual OrientationNot on file documented as of this encounter Last Filed Vital Signs Vital SignReadingTime TakenCommentsBlood Qwvemafr618/7208/22/2025 10:35 AM EDT Pulse--Temperature--Respiratory Rate--Oxygen Saturation--Inhaled Oxygen Concentration--Ddqkyf62.5 kg (159 lb 12 oz)08/22/2025 10:35 AM [...] nursing note reviewed. Exam conducted with a export sales assistant present. Vitals: Estimated body mass index is 27.42 kg/m?? as calculated from the following: Height as of 03/13/25: 5' 4 . Weight as of this encounter: 159 lb 12 oz. BP: 112/72 Patient's last menstrual period was 01/01/2025. Assessment/Plan ICD-10-CM 1. Third trimester ([facility]) Z34.93 2. 33 weeks gestation of ([facility]) Z3A.33 Return OB: Patient presents today for [...] Plan of Treatment DateTypeDepartmentCare Team (Latest Contact Info)Akcyjympknc06/10/2025 11:20 AM ESTRoutine NOM[facility] Lonnie ESQUIVEL [address] [place] [address] [place] [phone] Diaz Mathis DO [address] [facility] [place] [address] 09/11/2025 10:20 AM ESTRoutine NOMS Lonnie ESQUIVEL [address] [place] [address] [place] [phone] Melba Goff PA [address] [facility] [place] [address] 09/18/2025 10:40 AM ESTRoutine NOM[facility] Lonnie OBGYN [address] [facility] [place] [phone] Diaz Mathis DO [address] [facility] [place] [address] 09/28/2025 10:40 AM ESTRoutine NOMS Lonnie ESQUIVEL [address] [facility] [place] [place] [address] Diaz Mathis DO [address] [facility] [address] [place], [place] [address] 10/02/2025 10:30 AM ESTRoutine NOMS Lonnie ESQUIVEL [address] [facility] [place] [place] [address] Melba Goff PA [address] [facility] [place] [address] NameTypePriorityAssociated DiagnosesOrder ScheduleUS biophysical profile w non stress testImagingRoutine Excessive growth affecting management of in third trimester, single or unspecified fetus ([facility]) Expected: 08/22/2025 (Approximate), Expires: 02/20/2026documented as of this encounter Procedures Procedure NamePriorityDate/TimeAssociated DiagnosisCommentsPOCT URINALYSIS VKRTPIZCPwkjtlm74/28/2025 10:53 AM EDT Third trimester ([facility]) documented in this encounter Results * POCT urinalysis dipstick manually resulted (08/22/2025 10:53 AM EDT)Component ValueRef RangeTest MethodAnalysis TimePerformed AtPathologist SignatureColor, UAYellowClarity, UAClearGlucose, UANegativeNegative - 1999(110) ++++ mg/dL Bilirubin, UANegativeNegative - 4(70) +++ [...] MemberRelationshipSpecialtyStart DateEnd Date María Scales MD [address] [place] [address] PCP - GeneralFamily Medicine03/03/23 Heydi Meyer MD, IBCLC [address] [place] [address] Family Zskpkzny80/18/23documented as of this encounter
--- NOTE | 2025-09-04 | US_ITS ---
The [address] [address] Patient Name: GREG SANCHEZ MRN: [id number] date: 1995 Sex: F Assigned Patient Location: [facility] Current Patient Location: [facility] Accession/Order Number: [id number] Exam Date: 09/04/2025 10:11 Report Date: 09/04/2025 11:44 At the request of: ROSINA MONZON DO Procedure: US OB growth ULTRASOUND OB GROWTH COMPARISON: 08/02/2025 CLINICAL DATA: Excessive growth There is a single live intrauterine gestation in cephalic presentation. There is cardiac and somatic activity with heart rate of 160 bpm. The amniotic fluid index measures 10.2 cm which is in low-normal range. The following measurements were obtained: Biparietal diameter 8.9 cm 36 weeks 0 days 76% Head circumference 32.6 cm 37 weeks 0 days 64% Abdominal circumference 32.0 cm 35 weeks 6 days 78% Femur length 6.9 cm 35 weeks 4 days 53% The composite ultrasound age based on these measurements is 36 weeks 1 day +/- 2 weeks 4 days. The estimated date of delivery is 10/01/2025. The estimated weight is 6 lbs. 3 oz. +/- 15 ounces (71%) . US/US OB growth IMPRESSION: SINGLE LIVE INTRAUTERINE GESTATION WITH ULTRASOUND AGE OF 36 WEEKS 1 DAY. Impression dictated by: Sara Galeano M.D. 09/04/2025 11:44 AM Dictation Location: [place] [address] Electronically authenticated by: [id number] Y Date: 09/04/2025 11:44
--- OUTSIDE RECORDS SUMMARY | 2025-09-04 09:44 | XMS_ITS | Clinical Summary ---
Author Organization [facility] Address [address] [place] [address] Care Team Providers Care Game Preserve Manager Name Role Phone María Scales MD Primary Care Provider [phone] Allergies Active AllergyReactionsCriticalityNoted LwsiCfrmcgzeIgnvoudtukVbquixat51/13/2017 Throat swells up Medications MedicationSigDispense QuantityRefillsLast FilledStart DateEnd DateStatus ASCORBIC ACID/VITAMIN E/BIOTIN (HAIR, SKIN, NAILS WITH BIOTIN ORAL) Indications:DysuriaTake by mouth once daily.Active levonorgestrel (MIRENA) 20 mcg/24 hours (5 yrs) 52 mg IUD 1 Each by INTRAUTERINE route one time only.Active vitamin B complex (B COMPLEX 1 ORAL) Take by mouth.Active Zinc 50 mg tab Take by mouth.Active omega 3-pif-gfl-fish oil (FISH OIL) 100-160-1,000 mg cap Take by mouth.Active phenazopyridine (PYRIDIUM) 200 mg tablet Take 1 tablet by mouth three times a day as needed. 6 tablet 5Active Active Problems ProblemNoted DateDiagnosed DateMigraine with aura07/01/2022 Assessment & Plan (07/01/2022 2:02 PM EDT): Assessment: states has migraines 1- 2 times weekly. She was given a PRN medication but cant remember name Zqbtlxbwylgg77/06/2022 Assessment & Plan (07/01/2022 2:45 PM EDT): Assessment: Hx of palpations states had negative cardiac work up at [facility]- records reviewed andscanned Post-operative nausea and zyxylwym50/06/2022 Assessment & Plan (07/01/2022 2:03 PM EDT): Assessment: states she vomits after every surgery - request pre-op medications Immunizations ImmunizationAdministration DatesNext DueHaemophilus influenzae b (HbOC) vaccine, 4-dose series (HIBTITER)06/02/1997diphtheria tetanus pertussis (DTaP) vaccine, unspecified xmvfilmpzle10/31/2002,06/02/1997diphtheria tetanus pertussis- Haemophilus influenzae b (DTP-Hib) vaccine (TETRAMUNE)05/10/1996,03/07/1996, 1995hepatitis B (HepB) vaccine, 3-dose series, age 0 yr - 19 yr (ENGERIX B-PEDS, RECOMBIVAX HB-PEDS)05/10/1996,1995,1995measles mumps rubella (MMR) vaccine (M-M-R II, PRIORIX)06/24/2001,11/18/1996novel influenza (E1J4-05) vaccine, live, nasal09/03/2009poliovirus (IPV) vaccine, inactivated (IPOL) [...] RecordedNational Score (1-100), lower number is lower dzky356711/14/2024State Score (1-10), lower number is lower gwin878Data from: https://www.neighborhoodatlas.[facility]/. Last address used for [address]11/14/2024CommentsNoSex and Gender Information ValueDate RecordedSex Assigned at BirthNot on fileLegal GyrUktunu19/10/2017 2:56 PM ESTGender IdentityNot on fileSexual OrientationNot on file Last Filed Vital Signs Vital SignReadingTime TakenCommentsBlood Alycquuu597/71011/10/2024 1:59 PM EST Nqkml662011/10/2024 1:59 PM XRMSnmttwrwbmr37.1 ??C (98.8 ??F)11/10/2024 1:59 PM ESTRespiratory Ccql363311/10/2024 1:59 PM ESTOxygen Eikzihlbkf273%11/10/2024 1:59 PM ESTInhaled Oxygen Concentration--Kuapre47.1 kg (128 lb)07/01/2022 1:36 PM EDT Lganye837.6 cm (5' 4 )07/01/2022 1:36 PM EDTBody Mass Index21.9707/01/2022 1:36 PM EDT Plan of Treatment Health MaintenanceDue DateLast DoneCommentsAnxiety Vdidrlapz78/27/2013Depression Mcfajueoh58/27/2013HIV Jpwrmbphm49/27/2013Hepatitis C Dzrnlooii33/27/2013 Cervical Cancer Uovhmgzks17/27/2016HPV Vaccine (1 - 3-dose SCDM series) 2022ovid-19 Vaccine ( season)2025Influenza Vaccine (#1) /06/2009DTaP,Tdap,Td Vaccine (8 - Td or Tdap), 02/07/2017, 11/25/2001, Additional history existsHepatitis B VaccineCompleted 05/10/1996, 1995, 1995 Insurance Care Teams Team MemberRelationshipSpecialtyStart DateEnd Date María Scales MD [address] [place] [address] PCP - GeneralFamily Medicine07/01/22
--- OUTSIDE RECORDS SUMMARY | 2025-09-04 09:44 | XMS_ITS | Patient Health Record ---
Author Organization [facility] Address [address] [place] [address] Care Team Providers Care Automatic Typewriter Inspector Name Role Phone María Scales Primary Care Provider Luis Alberto deluca Amanda Awad Isaias Allergies Allergen (clinical drug ingredient) Drug/Non Drug Allergy documented on EMR Reaction Allergy Type Onset Date Status cephalexin Cephalexin face swelling Drug Allergy Active Results Component Value Reference Range Notes Urine Culture and Sensitivit y Reviewed date:10/31/2024 08:11:05 AM Interpretation:Abnormal Performing Lab:QPT, [facility] [address] [address] , [address] [place], [place] [id number] Reggie Morgan MD Notes/Report: 0 Received Date: [id number] CULTURE, URINE, ROUTINE SEE NOTE CULTURE, URINE, ROUTINE Micro Number: [id number] Test Status: Final Specimen Source: Urine, clean [...] Unknown 09/29/2018 Administered vaccinated for 2017 season [id number] Quad PFS (0.5mL Admin) 18 y/o & [...] Notes Diagnosis Streptococcal sore throat (disor donny) (64255916) Strep pharyngitis (J02.0) ActiveconfirmedProblemIrritable bowel syndrome (86460852)IBS (irritable bowel syndrome) (K58.9)ActiveconfirmedProblemEndometriosis (713489941)Endometriosis (N80.9)ActiveconfirmedProblemHistory of respiratory disease (889698752)History of strep pharyngitis (Z87.09)ActiveconfirmedProblemExercise-induced asthma (86659124)Asthma, exercise induced (J45.990)Activeconfirmed Vital Signs Temperature 98.1 degrees Fahrenheit 10/28/2024 Respiratory Rate16 /min10/28/2024lood pressure jssetlnmc56 mm Hg10/28/2024 Oeddso24 in10/28/2024lood pressure ucbiykrk075 mm Hg10/28/20240988Didroc905 lbs 10/28/2024BMI20.99 kg/m210/28/2024 Encounters Encounter Location Date Provider Diagnosis [address] [place] [address] [place] [address] 10/28/2024 Amanda Posadas Acute UTI N39.0 ; [...] go away but then come back. From <[email or web address]& zsj=[id number]> 5Acute vaginitis (ICD-10 - N76.0) Bacterial Vaginosis: Care Instructions material was published Patient advised that [facility] does not have the capacity to complete pelvic exams or send out pelvic swabs for testing. Will need to follow up with [facility] or PCP if needing further testing or pelvic exam.For any urgent/emergent signs and symptoms, please seek immediate care at nearest UC/ED. Will send over treatment for BV as patient reports no relief of symptoms after taking flagyl and clindamycin. However, if symptoms do not improve or resolve - she will need to be seen by [facility] for further evaluation and management. Bacterial vaginosis [...] help?< img width= 46 alt= src= https://content.healthwise.n et/resources/14.3/en-us/media/interface/avwz-ncv-ojtu_jab.jpg height= 46 >Call your doctor now or [...] - B96.89) Follow up with PCP or [facility]BI[facility] for further evaluation and management.10/28/2024 Vaginal discharge (ICD-10 - N89.8)Follow up in the clinic or with PCP as needed 10/28/2024Influenza vaccination declined (ICD-10 - Z28.21) The CDC recommends influenza (flu) vaccine every fall. [facility] provides influenza vaccination for all ages. [...] your feedback regarding your experience at [facility]. Plan Of Treatment No Information Insurance Providers Payer Name Payer Address Payer Phone Subscriber Number Group Number Insured Name Patient Relationship to Insured Coverage Start Date Coverage End Date [facility] [employer] [place] [address] [place] [address] [id number] Yaima Callejas - patient is the insured Medical (General) History Medical History History ICD Code IBS (irritable bowel syndrome) K58.9 Endometriosis N80.9 History of strep pharyngitis Z87.09 Asthma, exercise induced J45.990 Surgical History Surgery Date(Month/Year) Elective Colonoscopyage - 12Hospitalization History Reason Date(Month/Year) colonoscopy
--- OUTSIDE RECORDS SUMMARY | 2025-09-04 09:44 | XMS_ITS | Encounter Summary ---
Author Organization [facility] Address [address] [facility] [place] [address] Care Team Providers Care Street Light Servicer Supervisor Name Role Phone María Scales MD Primary Care Provider [phone] Heydi Meyer MD, IBCLC Unavailable [phone]- [phone] Encounter Details DateTypeDepartmentCare Team (Latest Contact Info)Eaxqhgxprro46/28/2025amboo flowsheet LACY ESQUIVEL [address] [place] [address] Diaz Mathis DO [address] [place] [address] Carmen [place], [facility] Social History Tobacco UseTypesPacks/DayYears UsedDateSmoking Tobacco: NeverSmokeless Tobacco: NeverAlcohol UseStandard Drinks/WeekCommentsNever0 (1 standard drink = 0.6 oz pure alcohol)caffeine intake : noneEstimated Date of DeliveryCommentsYes 5Based on last menstrual period of 01/01/2025Sex and Gender Information ValueDate RecordedSex Assigned at BirthNot on fileLegal HwnOzknky15/15/2023 7:39 PM EDTGender JowzdnqrKuzusx35/15/2023 7:39 PM EDTSexual OrientationNot on file documented as of this encounter Plan of Treatment DateTypeDepartmentCare Team (Latest Contact Info)Nbeosgretpl83/10/2025 11:20 AM ESTRoutine NOMDavid SEGOVIAN [address] [place] [address] Diaz Mathis DO [address] [place] [address] 09/11/2025 10:20 AM ESTRoutine [facility] [address] [place] [address] [place] [address] Melba Goff, PA [address] [place] [address] [place] [address] 09/18/2025 10:40 AM ESTRoutine [facility] [address] [place] [address] [place] [address] Diaz Mathis, DO [address] [place] [address] [place] [address] 09/28/2025 10:40 AM ESTRoutine [facility] [address] [place] [address] [place] [address] Diaz Mathis, [address] [place] [address] 10/02/2025 10:30 AM ESTRoutine [facility] [address] [place] [address] [place] [address] Melba Goff, PA [address] [place] [address] [place] [address] documented as of this encounter Visit Diagnoses Not on filedocumented in this encounter Care Teams Team MemberRelationshipSpecialtyStart DateEnd Date María Scales MD [address] [place], [place] [id number] PCP - GeneralFamily Medicine03/03/23 Heydi Meyer MD, IBCLC [address] [place], [place] [id number] Family Eykvbdjs29/18/23documented as of this encounter
--- OUTSIDE RECORDS SUMMARY | 2025-09-04 09:44 | XMS_ITS | Clinical Summary ---
Author Organization [facility] Address [address] [place] [address] Care Team Providers Care Disability Rater Name Role Phone María Scales MD Primary Care Provider [phone] Heydi Meyer MD, IBCLC Unavailable [phone] Allergies Active AllergyReactionsCriticalityNoted JatjEfcjolqnRaiztaqzyCakufszr54/09/2023 Other Reaction(s): Swelling CephalexinSwelling,IgdewzxvcybAeqx28/12/2017 Throat swells up Other Reaction(s): face swelling, Swelling of Lip/Tongue/Throat, Swelling of Lip/Tongue/Throat, anaphylaxis, Unknown LmallldUmney37/22/6825RuacfzburvkoiBnlimsed52/20/2025 Medications MedicationSigDispense QuantityRefillsLast FilledStart DateEnd DateStatus Vit-Fe Fumarate-FA ( Vitamins) 28-0.8 MG tablet Indications:, unspecified gestational age ([facility])Take 1 tablet by mouth Daily 30 tablet 1107//791875/6Active Active Problems ProblemNoted DateDiagnosed DateOSA (obstructive sleep apnea)06/06/2024 Psychophysiological rhbfqokc87/18/2023 Assessment & Plan (10/12/2023 12:51 PM EST): Likely secondary to anxiety and panic disorder. See below. We did review sleep hygiene and supplements that may help with insomnia, including magnesium, melatonin, Ashwaganda. No clinical sign of obstructive sleep apnea Djfltfwakpi97/26/2023nxiety and hogyxhizgg83/26/2023nxiety disorder, hltotsrjglg43/26/2023AD (generalized anxiety disorder)07/21/2023 Assessment & Plan (10/12/2023 [...] Attention deficit hyperactivity disorder (ADHD), combined type07/21/2023 Ctwcubgzeoqu99/26/7980Hbqrcofrbveyi71/26/2023Female infertility associated with ibqwctipevd47/26/2023Fibrocystic breast, right07/21/2023Heavy menstrual bleeding 07/21/2023Intranasal mass07/21/2023Major depressive disorder, single episode, ancetiikgee03/26/2023Migraine without aura and without status migrainosus, not nwkutcocjjq15/26/2023Moderate episode of recurrent major depressive disorder 07/21/2023Nasal qmelvforq92/26/2023Raynaud's phenomenon without gangrene 07/21/2023Migraine with aura07/01/2022 Overview (07/21/2023): Last Assessment & Plan: Assessment: states has migraines 1- 2 times weekly. She was given a PRN medication but cant remember name Jhraufnybzgq42/06/2022 Overview (07/21/2023): Last Assessment & Plan: Assessment: Hx of palpations states had negative cardiac work up at [facility]- records reviewed and scanned Post-operative nausea and hqxcokri61/06/2022 Overview (07/21/2023): Last Assessment & Plan: Assessment: states she vomits after every surgery - request pre-op medications Estimated Date of CldagwmbQblcqqopPke14/14/2025Based on last menstrual period of 01/01/2025 Encounters DateTypeDepartmentCare EojwWlsfbhrxoeu23/03/2025linisync Result Encounter [facility] External Department Unsolicited Rosina Mathis, 08/23/2025[place] [address] Rosina Mathis, 08/22/2025 10:10 AM [place]TRout[place] [address] Rosina Mathis, Excessive growth affecting management of in third trimester, single or unspecified fetus ([facility]) (Primary Dx); Third trimester ([facility]); 33 weeks gestation of ([facility])08/22/2025amboo [place] [address] Rosina Mathis, 08/09/2025 2:30 PM [place] [address] Rosina Mathis, Third trimester ([facility]); 31 weeks gestation of ([facility])08/09/2025amboo [place] [address] Rosina Mathis, 08/07/2025Telephone [facility] [address] [facility] [place] [address] Rosina Mathis, DO 08/02/2025linisync Result Encounter [facility] External Department Unsolicited Rosina Mathis, DO 08/02/2025linisync Result Encounter [facility] External Department Unsolicited Rosina Mathis, DO 08/02/2025Telephone [facility] [address] [facility] [place] [address] Saloni Ortega MA 07/24/2025bstract [facility] Marcus [facility] [place] [address] Kellee Whipple MA 07/19/2025 11:20 AM EDTRoutine [facility] Velazquez [facility] [place] [address] Rosina Mathis, DO Third trimester ([facility]); 28 weeks gestation of ([facility]); size inconsistent with dates ([facility])07/19/2025amboo flowsheet [facility] OBGALA Velazquez [facility] [place] [address] Rosina Mathis, DO 07/04/2025 10:30 AM EDTRoutine [facility] OBGALA Velazquez [facility] [place] [address] Melba Goff PA 26 weeks gestation of ([facility]); Second trimester ([facility])07/04/2025amboo flowsheet [facility] OBGALA [address] [facility] [place] [address] Melba Goff PA 06/28/2025linisync Result Encounter [facility]OM[facility] External Department Unsolicited Rosina Mathis, DO 06/27/2025Telephone [facility] OBGYJovany [address] [facility] [place] [address] Kellee Whipple MA 06/22/2025linisync Result Encounter [facility] External Department Unsolicited Rosina Mathis, DO 06/20/2025Telephone [facility] [address] [facility] [place] [address] Rosina Mathis DO 06/06/2025 10:10 AM EDTRoutine [facility] [address] [facility] [address] [place] [address] Rosina Mathis DO 22 weeks gestation of ([facility]); Second trimester ([facility]); Diabetes mellitus gumloxlmo50/12/2025amboo flowsheet [facility] [address] [facility] [address] [place] [address] Rosina Mathis DO from Last 3 Months Immunizations ImmunizationAdministration DatesNext DueDTP / HiB05/10/1996,03/07/1996, 1995DTaP, Wbvdiydrdac32/31/2002,06/02/1997Hep B, Adolescent or Pediatric 05/10/1996,1995,1995Hib (HbOC)06/02/1997IPV06/24/2001MMR06/24/2001, 11/18/1996Novel Rlmxjoonu-U6U5-28, nasal09/03/2009OPV06/02/1997,05/10/1996, 03/07/1996,1995Tdap02/10/2018,02/07/2017 Family History Medical HistoryRelationNameCommentsHeart diseaseBrother1 brother [...] ValueDate RecordedSex Assigned at BirthNot on fileLegal MrzYeilbz21/15/2023 7:39 PM EDTGender JxtzzzcwOvzlis92/15/2023 7:39 PM EDTSexual OrientationNot on file Last Filed Vital Signs Vital SignReadingTime TakenCommentsBlood Fxxbjubc667/7210 10:35 AM EDT Xuawv1570/19/2025 2:47 PM NMPKaggrndkwny16.8 ??C (96.5 ??F)03/13/2025 2:47 PM EDTRespiratory Avvu538403/13/2025 2:47 PM EDTOxygen Spyrqobcfn07%03/13/2025 2:47 PM EDTInhaled Oxygen Concentration--Igrcwh53.5 kg (159 lb 12 oz)08/22/2025 10:35 AM EZBHbowbv839.6 cm (5' 4 )03/13/2025 2:47 PM EDTBody Mass Index27.42003/13/2025 2:47 PM EDT Plan of Treatment DateTypeDepartmentCare Team (Latest Contact Info)Eazjladdmne61/10/2025 11:20 AM ESTRoutine [facility] [address] [place] [address] [place] [address] Rosina Mathis DO [address] [facility] [address] [place], [place] [address] 09/11/2025 10:20 AM ESTRoutine NOMDavid ESQU[facility]EL [address] [facility] [place] [address] Melba Goff PA [address] [facility] [place] [address] 09/18/2025 10:40 AM ESTRoutine [facility] [place] [facility] [address] [place] [address] [place] [address] Rosina Mathis, DO [address] [facility] [address] [place] [address] 09/28/2025 10:40 AM ESTRoutine [facility] [address] [place] [address] [place] [address] Rosina Mathis, DO [address] [facility] [address] [place] [address] 10/02/2025 10:30 AM ESTRoutine [facility] [address] [facility] [place] [address] Melba Goff, PA [address] [facility] [place] [address] Health MaintenanceDue DateLast DoneCommentsPneumococcal Vaccine: Pediatrics (0 to 5 Years) and At-Risk Patients (6 to 64 Years) (1 of 2 - PCV)2014COVID- 19 Vaccine ( - season)2025Influenza Vaccine (#1)2025 09/29/2018 Procedures Procedure NamePriorityDate/TimeAssociated DiagnosisCommentsUS OB BPP W NON-LQHDDR0408/28/2025 10:04 AM EST POCT URINALYSIS QDEKFNWNSlzomqm81/28/2025 10:53 AM EDT Third trimester ([facility]) POCT URINALYSIS VEFBEXRCSguxdko09/15/2025 2:50 PM EDT Third trimester ([facility]) US OB LGUJZXUY52/08/2025 11:30 AM EDT US OB VKFGSF9708/02/2025 11:30 AM EDT POCT URINALYSIS OEIWOSSIQlpvdnu42/24/2025 11:47 AM EDT Third trimester ([facility]) POCT URINALYSIS EPUVHFIFCgqpyfy72/09/2025 10:55 AM EDT 26 weeks gestation of ([facility]) GLUCOSE TOLERANCE 3 PUKLPnwbrgn15/03/2025 10:08 AM EDT ALL THYROXINE (T4) IPDICnwxbor66/28/2025 11:49 AM EDT ALL THYROID STIM HSJSMCSDvkldgh93/28/2025 11:49 AM EDT GLUCOSE 1 ZSUVSyjfcvw08/28/2025 11:49 AM EDT ALL CBC WITH AUTO GKLKBtgywlu76/28/2025 11:49 AM EDT POCT URINALYSIS GQUPXHOYXkpsgkl74/12/2025 10:42 AM EDT 22 weeks gestation of ([facility]) Second trimester ([facility]) from Last 3 Months Results * US OB BPP W NON-STRESS (08/28/2025 10:04 AM EST)Anatomical Region LateralityModalityOtherSpecimen (Source)Anatomical Location / Laterality Collection Method / VolumeCollection TimeReceived Time08/28/2025 10:04 AM EST Narrative 08/28/2025 10:06 AM EST [facility] ?[address] ? [place] [address] ? Ultrasound Report ? Signed ? Patient: RAJANI SANCHEZ ?MR#: [id number] ?? : 1995 ?Acct:[id number] ?? Age/Sex: 29 / F ?ADM Date: 08/28/25 ?? Loc: US ? Attending Dr: Rosina Mathis D.O. ? Ordering Physician: Rosina Mathis D.O. ?? Date of Service: 08/28/25 ?? Procedure(s): US OB BPP w non-stress ?? Accession Number(s): [id number] ? cc: Rosina Mathis D.O.; Physician,Non-Staff MJune ? [facility] ? [address] ? [place] [address] ? Patient Name: ?? RAJANI ??SANCHEZ ? MRN: [facility]:[id number] ? date: 1995 ?Sex: F ?? Assigned Patient Location: [facility] ?? Current Patient Location: ? Accession/Order Number: [id number] ?? Exam Date: 08/28/2025 ??08:58 ?Report Date: 08/28/2025 ??10:04 ? At the request of: ?? ROSINA ??DELFINA ??DO ? Procedure: ??US OB BPP w non-stress ? BIOPHYSICAL PROFILE: ? CLINICAL INFORMATION: EXCESSIVE GROWTH O36.63X0 ? COMPARISON: 08/02/2025 ? There is a single live intrauterine gestation in cephalic presentation. ??The ?? reported gestational age is 34 weeks 1 day. ??The heart rate measures 136 ?? beats per minute. ? FINDINGS: ? TONE: 1 or more episodes of activity extension and flexion of ?? extremity or opening and closing of the hand ?[Y] ? 2/2 ?? GROSS BODY MOVEMENTS: 3 or more discrete body or limb movements ?[Y] ? 2/2 ?? BREATHING MOVEMENTS: 1 or more episodes of breathing lasting at ?? least 30 seconds ? [Y] ? 2/2 ?? SYLVAIN: A single deepest vertical pocket of amniotic fluid greater than 2 cm ? [Y] ? 2/2 ?SYLVAIN: 17.6 cm ? Total score: ? 8/8 ? US/US OB BPP w non-stress ?? IMPRESSION: ? NORMAL BIOPHYSICAL PROFILE . ? Impression dictated by: Sara Galeano M.D. ??08/28/2025 10:04 AM ? Dictation Location: RADIO-PC-02 ? Electronically authenticated by: [id number] ??Y ?? Date: 08/28/2025 ??10:04 ? Dictated By: ?Sara Galeano M.D. ? Signed By: ?08/28/25 1006 ? DD/ 1004 ? TD/TT: ? Recreation Program Specialist: Procedure Note Radiology, Radiologist, - 08/28/[address] [address] Ultrasound Report Signed Patient: ANGEL SANCHEZ#: [id number] : 1995Acct:[id number] Age/Sex: 29 / FADM Date: 08/28/25 Loc: US Attending Dr: Rosina Mathis D.O. Ordering Physician: Rosina Mathis D.O. Date of Service: 08/28/25 Procedure(s): US OB BPP w non-stress Accession Number(s): [id number] cc: Rosina Mathis D.O.; Physician,Non-Staff Gop[place] [address] Patient Name: RAJANI SANCHEZ MRN: [facility]:[id number] date: 1995 Sex: F Assigned Patient Location: [facility] Current Patient Location: Accession/Order Number: [id number] Exam Date: 08/28/2025 08:58 Report Date: 08/28/2025 10:04 At the request of: ROSINA MATHIS DO Procedure: US OB BPP w non-stress BIOPHYSICAL PROFILE: CLINICAL INFORMATION: EXCESSIVE GROWTH O36.63X0 COMPARISON: 08/02/2025 There is a single live intrauterine gestation in cephalic presentation.The reported gestational age is 34 weeks 1 day. The heart rate xlhbmivh252 beats per minute. FINDINGS: TONE: 1 or more episodes of activity extension and flexion of extremity or opening and closing of the hand [Y] 2/2 GROSS BODY MOVEMENTS: 3 or more discrete body or limb movements [Y] 2/2 BREATHING MOVEMENTS: 1 or more episodes of breathing lastingat least 30 seconds [Y] 2/2 SYLVAIN: A single deepest vertical pocket of amniotic fluid greater than 2 cm [Y] 2/2 SYLVAIN: 17.6 cm Total score: 8/8 US/US OB BPP w non-stress IMPRESSION: NORMAL BIOPHYSICAL PROFILE . Impression dictated by: Sara Galeano M.D. 08/28/2025 10:04 AM Dictation Location: [place] [address] Electronically authenticated by: [id number] Y Date: 0:04 Dictated By: Sara Galeano M.D. Signed By:08/28/25 1006 DD/ 1004 TD/TT: Recreation Program Specialist: Authorizing ProviderResult TypeResult StatusCorey Delfina DOCLINISYNC IMAGINGFinal Result * POCT urinalysis dipstick manually resulted (08/22/2025 10:53 AM EDT) Only the most recent of5 resultswithin the time period is included. ComponentValueRef RangeTest MethodAnalysis TimePerformed AtPathologist Signature Color, UAYellowClarity, UAClearGlucose, UANegativeNegative - 2000(110) ++++ mg/dLBilirubin, UANegativeNegative - 4(70) +++ mg/dLKetones, UANegativeNegative - 160(16) ++++ mg/dLSpec Grav, UA1.0001 - 1.03Blood, UANegativeNegative - 50 Ortega/mcLpH, UA6.55 - 9Protein, UANegativeNegative - 2000(20) ++++ mg/dL Urobilinogen, UA0.20.2 - 12 mg/dLLeukocytes, UANegativeNegative - 500+++ Fidencio/mcL Nitrite, UANegativeNegative - PositiveSpecimen (Source)Anatomical Location / LateralityCollection Method / VolumeCollection TimeReceived QrlfIsrwi48/28/2025 10:53 AM EDT Narrative Authorizing ProviderResult TypeResult StatusCoresusanna Mathis DOPOINT OF CARE TEST ENTER/EDIT ORDERABLESFinal Result * US OB PLACENTA (08/02/2025 11:30 AM EDT)Anatomical RegionLateralityModality OtherSpecimen (Source)Anatomical Location / LateralityCollection Method / VolumeCollection TimeReceived Time08/02/2025 11:30 AM EDT Narrative 08/02/2025 11:33 AM EDT [facility] ?[address] ? [place], [facility] ? Ultrasound Report ? Signed ? Patient: RAJANI SANCHEZ ?MR#: [id number] ?? : 1995 ?Acct:[id number] ?? Age/Sex: 29 / F ?ADM Date: 08/02/25 ?? Loc: US ? Attending Dr: Rosina Mathis D.O. ? Ordering Physician: Rosina Mathis D.O. ?? Date of Service: 08/02/25 ?? Procedure(s): US OB placenta ?? Accession Number(s): [id number] ? cc: Delfina,Rosina D.O.; Physician,Non-Staff M.D. ? [facility] ? [address] ? [place] [address] ? Patient Name: ?? RAJANI ??SANCHEZ ? MRN: [facility]:[id number] ? date: 1995 ?Sex: F ?? Assigned Patient Location: US ?? Current Patient Location: US ?? Accession/Order Number: [id number] ?? Exam Date: 08/02/2025 ??10:52 ?Report Date: [...] M.D. ??08/02/2025 11:30 AM ? Dictation Location: [place] [address] ? Electronically authenticated by: [id number] ??Y ?? Date: 08/02/2025 ??11:30 ? Dictated By: ?Sara Galeano M.D. ? Signed By: ?08/02/251132 ? DD/ 1130 ? TD/TT: ? Recreation Program Specialist: Procedure Note Radiology, Radiologist, - 08/02/2025 [place] [address] Ultrasound Report Signed Patient: ANGEL SANCHEZ#: [id number] : 1995Acct:[id number] Age/Sex: 29 / FADM Date: 08/02/25 Loc: US Attending Dr: Rosina Mathis D.O. Ordering Physician: Rosina Mathis D.O. Date of Service: 08/02/25 Procedure(s): US OB placenta Accession Number(s): [id number] cc: Rosina Mathis D.O.; Physician,Non-Staff M.DSmita The [place] [id number] Patient Name: RAJANI SANCHEZ MRN: [id number] date: 1995 Sex: F Assigned Patient Location: US Current Patient Location: US Accession/Order Number: [id number] Exam Date: 08/02/2025 10:52 Report Date: 08/02/2025 [...] Galeano M.D. 08/02/2025 11:30 AM Dictation Location: [place] [address] Electronically authenticated by: [id number] Y Date: 1:30 Dictated By: Sara Galeano M.D. Signed By:08/02/25 1133 DD/ 1130 TD/TT: Recreation Program Specialist: Authorizing ProviderResult TypeResult StatusCorey Delfina DOCLINISYNC IMAGINGFinal Result * US OB GROWTH (08/02/2025 11:30 AM EDT)Anatomical RegionLateralityModalityOther Specimen (Source)Anatomical Location / LateralityCollection Method / Volume Collection TimeReceived Time08/02/2025 11:30 AM EDT Narrative 08/02/2025 11:33 AM EDT [facility] ?[address] ? [place] [address] ? Ultrasound Report ? Signed ? Patient: RAJANI SANCHEZ ?MR#: [id number] ?? : 1995 ?Acct:[id number] ?? Age/Sex: 29 / F ?ADM Date: 08/02/25 ?? Loc: US ? Attending Dr: Rosina Mathis D.O. ? Ordering Physician: Rosina Mathis D.O. ?? Date of Service: 08/02/25 ?? Procedure(s): US OB growth ?? Accession Number(s): [id number] ? cc: Rosina Mathis D.O.; Physician,Non-Staff Gopi ? [facility] ? [address] ? [place] [address] ? Patient Name: ?? RAJANI ??SANCHEZ ? MRN: [facility]:[id number] ? date: 1995 ?Sex: F ?? Assigned Patient Location: US ?? Current Patient Location: US ?? Accession/Order Number: [id number] ?? Exam Date: 08/02/2025 ??10:52 ?Report Date: [...] M.D. ??08/02/2025 11:30 AM ? Dictation Location: [place] [address] ? Electronically authenticated by: [id number] ??Y ?? Date: 08/02/2025 ??11:30 ? Dictated By: ?Sara Galeano M.D. ? Signed By: ?08/02/251132 ? DD/ 1130 ? TD/TT: ? Recreation Program Specialist: Procedure Note Radiology, Radiologist, MD - 08/02/2025 [place] [address] Ultrasound Report Signed Patient: ANGEL SANCHEZ#: [id number] : 1995Acct:[id number] Age/Sex: 29 FADM Date: 08/02/25 Loc: US Attending Dr: Rosina Mathis D.O. Ordering Physician: Rosina Mathis D.O. Date of Service: 08/02/25 Procedure(s): US OB growth Accession Number(s): [id number] cc: Rosina Mathis D.O.; Physician,Non-Staff M.DSmita The [place] [id number] Patient Name: RAJANI SANCHEZ MRN: [id number]:[id number] date: 1995 Sex: F Assigned Patient Location: US Current Patient Location: US Accession/Order Number: [id number] Exam Date: 08/02/2025 10:52 Report Date: 08/02/2025 [...] Galeano M.D. 08/02/2025 11:30 AM Dictation Location: [place] [address] Electronically authenticated by: [id number] Y Date: 1:30 Dictated By: Sara Galeano M.D. Signed By:08/02/25 1133 DD/ 1130 TD/TT: Recreation Program Specialist: Authorizing ProviderResult TypeResult StatusCorey Delfina DOCLINISYNC IMAGINGFinal [...] 10:08 AM EDT06/28/2025 10:38 AM EDT Narrative [facility] - 06/28/2025 3:24 PM EDT Authorizing ProviderResult TypeResult StatusCorey Delfina DOLAB BLOOD ORDERABLES Final ResultPerforming OrganizationAddressCity/State/ZIP CodePhone Number [facility] * (ABNORMAL) GLUCOSE 1 HOUR (06/22/2025 11:49 AM EDT)ComponentValueRef RangeTest MethodAnalysis TimePerformed AtPathologist SignatureGLUCOSE 1 ZDEI087(H)<130 mg/dLTBHSpecimen (Source)Anatomical Location / LateralityCollection Method / VolumeCollection TimeReceived Time06/22/2025 11:49 AM EDT06/22/2025 11:52 AM EDT Narrative [facility] - 06/22/2025 12:39 PM EDT Authorizing ProviderResult TypeResult StatusCorey Delfina DOLAB BLOOD ORDERABLES Final ResultPerforming OrganizationAddressCity/State/ZIP CodePhone Number [facility] * ALL THYROXINE (T4) FREE (06/22/2025 11:49 AM EDT)ComponentValueRef RangeTest MethodAnalysis TimePerformed AtPathologist SignatureFREE T40.850.76 - 1.46 ng/dLTBHSpecimen (Source)Anatomical Location / LateralityCollection Method / VolumeCollection TimeReceived Time06/22/2025 11:49 AM EDT06/22/2025 11:52 AM EDT [facility] - 06/22/2025 1:07 PM EDT Authorizing ProviderResult TypeResult StatusCorey Delfina DOCLINISYNCFinal Result Performing OrganizationAddressCity/State/ZIP CodePhone Number [facility] * ALL THYROID STIM HORMONE (06/22/2025 11:49 AM EDT)ComponentValueRef RangeTest MethodAnalysis TimePerformed AtPathologist SignatureTHYROID STIMULATING HORMONE0.8710.358 - 3.740 uIU/mLTBHSpecimen (Source)Anatomical Location / LateralityCollection Method / VolumeCollection TimeReceived Time06/22/2025 11:49 AM EDT06/22/2025 11:52 AM EDT Narrative [facility] - 06/22/2025 12:39 PM EDT Authorizing ProviderResult TypeResult StatusCorey Delfina DOCLINISYNCFinal Result Performing OrganizationAddressCity/State/ZIP CodePhone Number [facility] * (ABNORMAL) ALL CBC WITH AUTO DIFF (06/22/2025 11:49 AM EDT)ComponentValueRef RangeTest MethodAnalysis TimePerformed AtPathologist SignatureTBH WBC7.64.0 - 11.0 10 3/uLTBHTBH RBC3.96(L)4.20 - 5.40 10 6/uLTBHTBH HGB12.912.0 - 16.0 g/dL TBHTBH HCT37.236.0 - 48.0 %TBHTBH MCV93.981.0 - 99.0 fLTBHTBH MCH32.626.7 - 34.0 pgTBHTBH MCHC34.729.9 - 35.2 g/dLTBHTBH RDW12.611.0 - 15.0 %TBHTBH VGT142 150 - 450 10 3/uLTBHTBH MPV8.8(L)9.5 - [...] MemberRelationshipSpecialtyStart DateEnd Date María Scales MD [address] [place] [address] PCP - GeneralFamily Medicine03/03/23 Heydi Meyer MD, IBCLC [address] [place] [address] Family Fmbmgurw31/18/23
--- OUTSIDE RECORDS SUMMARY | 2025-09-04 09:44 | XMS_ITS | Encounter Summary ---
Author Organization [facility] Address [address] [facility] [place] [address] Care Team Providers Care Business Manager [employer] Name Role Phone María Scales MD Primary Care Provider [phone] [phone] Heydi Meyer MD, IBCLC Unavailable +- [phone] Encounter Details DateTypeDepartmentCare Team (Latest Contact Info)Vwgcvyuqfmi71/03/2025linisync Result Encounter [facility] External Department Unsolicited Rosina Mathis, DO [address] [place], [place] [id number] Social History Tobacco UseTypesPacks/DayYears UsedDateSmoking Tobacco: NeverSmokeless Tobacco: NeverAlcohol UseStandard Drinks/WeekCommentsNever0 (1 standard drink = 0.6 oz pure alcohol)caffeine intake : noneEstimated Date of DeliveryCommentsYes 5Based on last menstrual period of 01/01/2025Sex and Gender Information ValueDate RecordedSex Assigned at BirthNot on fileLegal XfnSzoqfv03/15/2023 7:39 PM EDTGender KuccaardEwquch91/15/2023 7:39 PM EDTSexual OrientationNot on file documented as of this encounter Plan of Treatment DateTypeDepartmentCare Team (Latest Contact Info)Glatmrnaovh82/10/2025 11:20 AM ESTRoutine [facility] [place] [facility] [address] [place] [phone] Rosina Mathis, DO [address] [place] [address] 09/11/2025 10:20 AM ESTRoutine [facility] [place] [facility] [address] [facility] [place] [address] Melba Goff, PA [address] [facility] [place] [address] 09/18/2025 10:40 AM ESTRoutine [facility] [place] [facility] [address] [facility] [place] [address] Rosina Mathis, DO [address] [facility] [place] [place] [address] 09/28/2025 10:40 AM ESTRoutine [facility] [place] [facility] [address] [facility] [place] [address] Rosina Mathis, DO [address] [facility] [place] [place] [address] 10/02/2025 10:30 AM ESTRoutine [facility] [place] [facility] [address] [facility] [place] [address] Melba Goff, PA [address] [facility] [place] [address] documented as of this encounter Procedures Procedure NamePriorityDate/TimeAssociated DiagnosisCommentsUS OB BPP W NON-QBRWAR4008/28/2025 10:04 AM EST documented in this encounter Results * US OB BPP W NON-STRESS (08/28/2025 10:04 AM EST)Anatomical Region LateralityModalityOtherSpecimen (Source)Anatomical Location / Laterality Collection Method / VolumeCollection TimeReceived Time08/28/2025 10:04 AM EST Narrative 08/28/2025 10:06 AM EST [facility] ?[address] ? [place] [address] ? Ultrasound Report ? Signed ? Patient: SANCHEZ,GREG ?MR#: [id number] ?? : 1995 ?Acct:[id number] ?? Age/Sex: 29 / F ?ADM Date: 11/03/25 ?? Loc: US ? Attending Dr: Rosina Mathis D.O. ? Ordering Physician: Rosina Mathis D.O. ?? Date of Service: 08/28/25 ?? Procedure(s): US OB BPP w non-stress ?? Accession Number(s): [id number] ? cc: Rosina Mathis D.O.; Physician,Non-Staff M.D. ? [facility] ? [address] ? [place] [address] ? Patient Name: ?? GREG ??SANCHEZ ? MRN: [facility]:[id number] ? date: 1995 ?Sex: F ?? Assigned Patient Location: FB ?? Current Patient Location: ? Accession/Order Number: [id number] ?? Exam Date: 08/28/2025 ??08:58 ?Report Date: [...] Dictation Location: RADIO-PC-02 ? Electronically authenticated by: [id number] ??Y ?? Date: 08/28/2025 ??10:04 ? Dictated By: ?Sara Galeano M.D. ? Signed By: ?08/28/25 1006 ? DD/ 1004 ? TD/TT: ? Material Lister: Procedure Note Radiology, Radiologist, MD - 11/03/2025 [place] [address] Ultrasound Report Signed Patient: ANGEL SANCHEZ#: [id number] : 1995Acct:[id number] Age/Sex: 29 / FADM Date: 08/28/25 Loc: US Attending Dr: Rosina Mathis D.O. Ordering Physician: Rosina Mathis D.O. Date of Service: 08/28/25 Procedure(s): US OB BPP w non-stress Accession Number(s): [id number] cc: Rosina Mathis D.O.; Physician,Non-Staff Gopi The [place] [address] Patient Name: GREG SANCHEZ MRN: [id number] date: 1995 Sex: F Assigned Patient Location: [facility] Current Patient Location: Accession/Order Number: [id number] Exam Date: 08/28/2025 08:58 Report Date: 08/28/2025 10:04 At the request of: ROSINA MATHIS DO Procedure: US OB BPP w non-stress BIOPHYSICAL PROFILE: CLINICAL INFORMATION: EXCESSIVE GROWTH O36.63X0 COMPARISON: 08/02/2025 There is a single live intrauterine gestation in cephalic presentation.The reported gestational age is 34 weeks 1 day. The heart rate lztzvybk628 beats per minute. FINDINGS: TONE: 1 or [...] [Y] 2/2 SYLVAIN: 17.6 cm Total score: 8 US/US OB BPP w non-stress IMPRESSION: NORMAL BIOPHYSICAL PROFILE . Impression dictated by: Sara Galeano M.D. 08/28/2025 10:04 AM Dictation Location: [place] [address] Electronically authenticated by: [id number] Y Date: 0:04 Dictated By: Sara Galeano M.D. Signed By:08/28/25 1006 DD/ 1004 TD/TT: Material Lister: Authorizing ProviderResult TypeResult StatusCorey Delfina DOCLINISYNC IMAGINGFinal Result documented in this encounter Visit Diagnoses Not on filedocumented in this encounter Care Teams Team MemberRelationshipSpecialtyStart DateEnd Date María Scales MD [address] [place] [address] PCP - GeneralFamily Medicine03/03/23 Heydi Myeer MD, IBCLC [address] [place] [address] Family Ycdofonm18/18/23documented as of this encounter
--- OUTSIDE RECORDS SUMMARY | 2025-09-04 09:44 | XMS_ITS | Encounter Summary ---
Author Organization [facility] Address [address] [facility] [place] [address] Care Team Providers Care Hotel Casino Floorperson Name Role Phone María Scales MD Primary Care Provider [phone] Heydi Meyer MD, IBCLC Unavailable + [phone] Encounter Details DateTypeDepartmentCare Team (Latest Contact Info)Axserjlftmx96/29/2025Telephone [facility] [place] [facility] [address] [address] Diaz Mathis DO [address] [address] Social History Tobacco UseTypesPacks/DayYears UsedDateSmoking Tobacco: NeverSmokeless Tobacco: NeverAlcohol UseStandard Drinks/WeekCommentsNever0 (1 standard drink = 0.6 oz pure alcohol)caffeine intake : noneEstimated Date of DeliveryCommentsYes 5Based on last menstrual period of 01/01/2025Sex and Gender Information ValueDate RecordedSex Assigned at BirthNot on fileLegal GrfOfunoa96/15/2023 7:39 PM EDTGender JmpwomefTyiigu95/15/2023 7:39 PM EDTSexual OrientationNot on file documented [...] Plan of Treatment DateTypeDepartmentCare Team (Latest Contact Info)Nhvgottgbax60/10/2025 11:20 AM ESTRoutine [facility] [place] [facility] [address] [place] [address] [place] [address] Diaz Mathis, DO [address] [place] [address] [place] [address] 09/11/2025 10:20 AM ESTRoutine [facility] [place] [facility] [address] [place] [address] [place] [phone] Melba Goff, PA [address] [facility] [place] [address] 09/18/2025 10:40 AM ESTRoutine [facility] [place] OBGALA [address] [place] [address] [place] [phone] Diaz Mathis [address] [facility] [place] [address] 09/28/2025 10:40 AM ESTRoutine [facility] [place] OBGYJovany [address] [place] [address] [place] [address] Diaz Mathis [address] [place] [address] 10/02/2025 10:30 AM ESTRoutine [facility] [place] OBGYJovany [address] [place] [address] [place] [address] Melba Goff, PA [address] [facility] [place] [address] documented as of this encounter Visit Diagnoses Not on filedocumented in this encounter Care Teams Team MemberRelationshipSpecialtyStart DateEnd Date María Scales MD [address] [place] [address] PCP - GeneralFascly Medicine03/03/23 Heydi Meyer MD, IBCLC [address] [place] [address] Family Oszqpuwu28/18/23documented as of this encounter
== END 2025-09-04 09:41 | disposition home or self-care (01) ==
LOC: RAD 09:41
PROVIDERS: Visit Provider Obstetrics & Gynecology
DX: O36.63X0 Maternal care for excessive fetal growth, third trimester, not applicable or unspecified (principal); Z3A.36 36 weeks gestation of pregnancy
CPT/HCPCS: 76816

== ENCOUNTER 2025-09-11 14:32 | Outpatient (REF) | payer OTHER, SELFPAY | END 2025-09-11 14:33 | disposition home or self-care (01) | LOC: LAB 14:32 | PROVIDERS: Visit Provider Physician Assistant | DX: Z34.93 Encounter for supervision of normal pregnancy, unspecified, third trimester (principal); Z3A.36 36 weeks gestation of pregnancy | CPT/HCPCS: 87081 ==

== ENCOUNTER 2025-10-06 16:01 | Outpatient (OUT) | payer OTHER, SELFPAY ==
[2025-10-06 16:05] VITALS: TEMP 36.3
[2025-10-06 16:45] VITALS: BP 118/72; PULSE 85
--- NOTE | 2025-10-06 16:52 | PC.NURSE ---
1605- Pt arrives at this time to [facility] with support person. Pt complaining of cxt's that have been occurring over the last 2 hours. Pt states she has been very physical active today to help naturally induce her labor. Pt reports active movement. Pt states her cervix last week was 4cm dilated. OB hx reviewed and pt assessment performed at this time. Pt reports having precip labors in the past; 1st labor lasted 1 hour and 2nd labor lasted 4hours. Pt states shes been feeling cxt's every 5 min since arriving to [facility]. Pt calm demeanor. Pt denies vaginal pressure. Pt cervix assessed; 4-5cm/ 70%/ -1; scant bloody show noted on exam glove with exam. Pt denies leaking of fluid or vaginal bleeding. Pt reports active movement. Pt given gown and urine specimen cup for sample.
[2025-10-06 17:01] LABS: Glucose Urine UA NEGATIVE (NEGATIVE)
--- NOTE | 2025-10-06 19:22 | PC.NURSE ---
1914- Report given to Oniel Carolina RN. Care relinquished.
[2025-10-06 20:27] VITALS: BP 113/69; PULSE 75
== END 2025-10-06 20:50 | disposition home or self-care (01) ==
LOC: FBCO 16:11 → FBC 16:24
PROVIDERS: Visit Provider Obstetrics & Gynecology
DX: O26.893 Other specified pregnancy related conditions, third trimester (principal); Z3A.39 39 weeks gestation of pregnancy
CPT/HCPCS: 59025; 81003

== ENCOUNTER 2025-10-08 22:55 | Inpatient (IN) | payer OTHER, SELFPAY ==
--- OUTSIDE RECORDS SUMMARY | 2024-04-21 05:45 | XMS_ITS | Continuity of Care Document ---
Author Organization [facility] Address [address] [place] [phone] Phone Care Team Providers Care Property Manager Name Role Phone Constance Subramanian DDS Unavailable [...] Patient 2023 [employer] Couns For Control Of [place] Dis Jun Resin Composite 1s; Posterior 2 Resin Composite 1s; Posterior 2 Treatment Completed Periodic Oral Eval Estab Patient 2021 Prophylaxis Adult Nutrit Couns For Control Of [place] Dis Apr Oral Hygiene Instruction Intraoral-complete Series (bw) Oral Hygiene Instruction No Charge Oral Hygiene Instruction Resin Composite 1s; Posterior 9 Comp Oral Eval New/estab Patient 2017 Prophylaxis Adult [employer]rit Couns For Control Of [place] Dis Sep Oral Hygiene Instruction Advance Directives Directive Yes / No Effective Date File Name No Information Encounters Encounter Description Practice Location Reason(s) For Visit Diagnoses Date Provider Providers Copied on Encounter [facility], [address] [place], [place], [id number], [place] tel:[phone] Dental Clinic Dental limited (chief complaint) Encounter for screening for dental disorders [facility] [place]. . tel:[phone] [facility], [address] [place], [place], [id number], [place] tel:[phone] [facility] Dental Clinic filling (chief complaint) Encounter for screening for dental disorders [facility] [place]. . tel:[phone] [facility], [address] [place] [address], [id number], [place] tel:[phone] Dental Clinic DN (chief complaint) Encounter for screening for dental disorders [facility] [place]. . tel:[phone] [facility], [address] [place] [address], [id number], [place] tel:[phone] Dental Clinic filling (chief complaint) [facility]counter [facility] screening [facility] disorders [facility] [address] [place], [address], [place]. tel:[phone] [facility], [address] [place] [address], [id number], [place] tel:[phone] Dental Clinic filling (chief complaint) [facility] [address] [place], [address], [place]. tel:[phone] [facility], [address] [place], [place], [id number], [place] tel:[phone] Dental Clinic Encounter for screening for dental disorders [facility] Hany. [address] [place], [place], [id number], [place]. tel:[phone] [facility], [address] [place] [address], [id number], [place] tel:[phone] Dental Clinic filling (chief complaint) Encounter for screening for dental disorders Pily Leach. [address] [place], [place], [id number], [place]. tel:[phone] [facility], [address] [place], [place], [id number], [place] tel:[phone] Dental Clinic Encounter for screening for dental disorders Marli Lee. [address] [place], [place], [id number], [place]. tel:[phone] Family History Family Member Type Diagnosis Age At Onset Mother Problem (finding) Alive and well Father Problem (finding) Alive and well Payers Payer name Insurance type Covered democrat ID Authoriza tion(s) No Information Social History [...] Of Treatment Date Type Action Status Goal Unhealthy drug use screening . Due on due Goal PAP. Due on due Goal Depression screening. Due on due Goal Tdap Vaccine. Due on 2023 due Goal Influenza vaccine. Due on Ju due Goal RLP. Due on due Goal PRAPARE ASSESSMENT. Due on J due Goal Tdap. Due on due Goal Hepatitis C screening. Due o n due Goal Hep A. Due on du e Goal PRAPARE ASSESSMENT. Due on A due Goal PAP. Due on due Goal Hepatitis C screening. Due o n due Goal RLP. Due on due Goal Depression screening. Due on due Goal Tdap. Due on due Goal Tdap Vaccine. Due on 2023 due Goal Influenza vaccine. Due on due Goal Unhealthy drug use screening . Due on due Goal Hep A. Due on du e Goal Hep A. Due on du e Goal RLP. Due on due Goal Hep A. Due on du e Goal PRAPARE ASSESSMENT. Due on A due Goal Unhealthy drug use screening . Due on due Goal Depression screening. Due on due Goal Hepatitis C screening. Due o n due Goal Tdap. Due on due Goal PAP. Due on due Goal Tdap Vaccine. Due on 2023 due Goal Influenza vaccine. Due on Ap r due Goal Influenza vaccine. Due on Se p due Goal PAP. Due on due Goal PRAPARE ASSESSMENT. Due on S ep due Goal Tdap. Due on due Goal RLP. Due on due Goal Depression screening. Due on due Goal Tdap. Due on [...]
--- OUTSIDE RECORDS SUMMARY | 2025-09-28 10:40 | XMS_ITS | Encounter Summary ---
Author Organization [facility] Address [address] [place] [address] Care Team Providers Care Client Service Associate Name Role Phone María Scales MD Primary Care Provider [phone] [phone] Heydi Meyer MD, IBCLC Unavailable +- [phone] Reason for Visit * ReasonCommentsRoutine Visit Encounter Details DateTypeDepartmentCare Team (Latest Contact Info)Lbnqxlqoqgd03/04/2025 10:40 AM ESTRoutine [facility] [place] [facility] [address] [facility] [place] [address] Diaz Mathis DO [address] [facility] [place] [address] 38 weeks gestation of ([facility]); Third trimester ([facility]); Heartburn during in third trimester ([facility]) Social History Tobacco UseTypesPacks/DayYears UsedDateSmoking Tobacco: NeverSmokeless Tobacco: NeverAlcohol UseStandard Drinks/WeekCommentsNever0 (1 standard drink = 0.6 oz pure alcohol)caffeine intake : noneEstimated Date of DeliveryCommentsYes 5Based on last menstrual period of 01/01/2025Sex and Gender Information ValueDate RecordedSex Assigned at BirthNot on fileLegal VkoYnvjiz17/15/2023 7:39 PM EDTGender KsgzfvynFwiiar13/15/2023 7:39 PM EDTSexual OrientationNot on file documented as of this encounter Last Filed Vital Signs Vital SignReadingTime TakenCommentsBlood Xjttbkui332/8809/28/2025 10:55 AM EST Pulse--Temperature--Respiratory Rate--Oxygen Saturation--Inhaled Oxygen Concentration--Nrvuox05.8 kg (164 lb 12.8 oz)09/28/2025 10:55 AM ESTHeight--Body Mass Index28.29003/13/2025 2:47 PM EDTdocumented in this encounter Progress Notes * Nohemi Francisco LPN - 09/28/2025 10:40 AM EST Reason for Appointment: Patient ID: Rajani Callejas is a 29 y.o. female who presents for Routine Visit Patient presents today for Return OB appointment. MEDICATIONS Current Outpatient Medications Medication Instructions Vit-Fe Fumarate-FA ( Vitamins) 28-0.8 MG tablet 1 tablet, Oral, Daily ALLERGIES Allergies Allergen Reactions Cephalexin Anaphylaxis and Swelling Throat swells up Other Reaction(s): face swelling, Swelling of Lip/Tongue/Throat, Swelling of Lip/Tongue/Throat, anaphylaxis, Unknown Other Reaction(s): Swelling of Lip/Tongue/Throat, anaphylaxis Cefazolin Swelling Other Reaction(s): Swelling Corylus Hives Hazelnut (Filbert) Other Reaction(s): hives Metronidazole Headache PROBLEMS Active Ambulatory Problems Diagnosis [...] LAPAROSCOPY ABDOMEN DIAGNOSTIC endometriosis OTHER SURGICAL HISTORY 2011 elective VAGINAL DELIVERY 2019 WISDOM TOOTH EXTRACTION REVIEW OF SYSTEMS Review of Systems: Review of Systems Constitutional: Negative. HENT: Negative. Eyes: Negative. Respiratory: Negative. Cardiovascular: Negative. Gastrointestinal: Negative. Genitourinary: Negative. Musculoskeletal: Negative. Skin: Negative. Neurological: Negative. All other systems reviewed and are negative. Hematological: Negative. Endocrine: Negative. Allergic/Immunologic: Negative. OBJECTIVE Objective: Physical Exam Constitutional: Appearance: Normal appearance. She is well-developed. Genitourinary: Vulva normal. Cardiovascular: Rate and Rhythm: Normal rate and [...] nursing note reviewed. Exam conducted with a cytology teacher present. Vitals: Estimated body mass index is 28.29 kg/m?? as calculated from the following: Height as of 03/13/25: 5' 4 . Weight as of this encounter: 164 lb 12.8 oz. BP: 138/88 Patient's last menstrual period was 01/01/2025. Assessment/Plan ICD-10-CM 1. 38 weeks gestation of ([facility]) Z3A.38 POCT urinalysis dipstick manually resulted 2. Third trimester ([facility]) Z34.93 POCT urinalysis dipstick manually resulted 3. Heartburn during in third trimester ([facility]) O26.893 R12 Assessment/Plan Patient presents today for a routine obstetrics appointment. Patient is currently 38w4d with a Estimated Date of Delivery: 10/08/25. Pelvic exam performed today and 1 cm. Patinet to return to clinic in 1 week. Documented by Nohemi Francisco LPN on behalf of: Melba Goff PA-C documented in this encounter Plan of Treatment DateTypeDepartmentCare Team (Latest Contact Info)Xgfxsciguhm65/15/2025 9:00 AM ESTRoutine [facility] [place] [facility] [address] [facility] [place] [address] Diaz Mathis DO [address] [facility] [place] [address] documented as of this encounter Procedures Procedure NamePriorityDate/TimeAssociated DiagnosisCommentsPOCT URINALYSIS IDNQYBVOJrrxvkq60/04/2025 11:03 AM EST 38 weeks gestation of ([facility]) Third trimester ([facility]) documented in this encounter Results * POCT urinalysis dipstick manually resulted (09/28/2025 11:03 AM EST)Component ValueRef RangeTest MethodAnalysis TimePerformed AtPathologist SignatureColor, UAYellowClarity, UAClearGlucose, UANegativeNegative - 2000(110) ++++ mg/dL Bilirubin, UANegativeNegative - 4(70) +++ mg/dLKetones, UANegativeNegative - 160(16) ++++ mg/dLSpec Grav, UA1.0051 - 1.03Blood, UANegativeNegative - 50 Ortega/mcLpH, UA6.05 - 9Protein, UANegativeNegative - 2000(20) ++++ mg/dL Urobilinogen, UA1.00.2 - 12 mg/dLLeukocytes, UANegativeNegative - 500+++ Fidencio/mcLNitrite, UANegativeNegative - PositiveSpecimen (Source)Anatomical Location / LateralityCollection Method / VolumeCollection TimeReceived Time Urine09/28/2025 11:03 AM EST Narrative Authorizing ProviderResult TypeResult StatusCorey Delfina DOPOINT OF CARE TEST ENTER/EDIT ORDERABLESFinal Result documented in this encounter Visit Diagnoses Diagnosis 38 weeks gestation of ([facility]) Third trimester ([facility]) state, incidental Heartburn during in third trimester ([facility]) documented in this encounter Care Teams Team MemberRelationshipSpecialtyStart DateEnd Date María Scales MD [address] [place] [address] PCP - GeneralFamily Medicine03/03/23 Heydi Meyer MD, IBCLC [address] [place] [address] Family Jyshuufy80/18/23documented as of this encounter
--- OUTSIDE RECORDS SUMMARY | 2025-10-02 10:30 | XMS_ITS | Encounter Summary ---
Author Organization [facility] Address [address] [place] [address] Care Team Providers Care Window Covering Sales Consultant Name Role Phone María Scales MD Primary Care Provider [phone] Heydi Meyer MD, IBCLC Unavailable +- [phone] Reason for Visit * ReasonCommentsRoutine Visit Encounter Details DateTypeDepartmentCare Team (Latest Contact Info)Waxvumtaudu90/08/2025 10:30 AM ESTRoutine [facility] [place] [facility] [address] [facility] [place] [address] Melba Goff PA [address] [facility] [place] [address] Third trimester ([facility]); 39 weeks gestation of ([facility]) Social History Tobacco UseTypesPacks/DayYears UsedDateSmoking Tobacco: NeverSmokeless Tobacco: NeverAlcohol UseStandard Drinks/WeekCommentsNever0 (1 standard drink = 0.6 oz pure alcohol)caffeine intake : noneEstimated Date of DeliveryCommentsYes 5Based on last menstrual period of 01/01/2025Sex and Gender Information ValueDate RecordedSex Assigned at BirthNot on fileLegal SzeDdkbih76/15/2023 7:39 PM EDTGender NtjhdixdGlzsxd41/15/2023 7:39 PM EDTSexual OrientationNot on file documented as of this encounter Last Filed Vital Signs Vital SignReadingTime TakenCommentsBlood Xwfmnaaa234/6610/02/2025 10:46 AM EST Pulse--Temperature--Respiratory Rate--Oxygen Saturation--Inhaled Oxygen Concentration--Ycttse93.6 kg (166 lb 12 oz)10/02/2025 10:46 AM ESTHeight--Body Mass Index28.6205/ 2:47 PM EDTdocumented in this encounter Progress Notes * KATHY Carranza - 10/02/2025 10:30 AM EST Reason for Appointment: Patient ID: [...] OTHER SURGICAL HISTORY 2011 elective VAGINAL DELIVERY 2017; 2019 WISDOM TOOTH EXTRACTION REVIEW OF SYSTEMS Review of Systems: Review of Systems Constitutional: Negative. HENT: Negative. Eyes: Negative. Respiratory: Negative. Cardiovascular: Negative. Gastrointestinal: Negative. Genitourinary: Negative. Musculoskeletal: Negative. Skin: Negative. Neurological: Negative. All other systems reviewed and are negative. Hematological: Negative. Endocrine: Negative. Allergic/Immunologic: Negative. OBJECTIVE Objective: Physical Exam Constitutional: Appearance: Normal appearance. She is normal weight. HENT: Head: Normocephalic. Cardiovascular: Rate and Rhythm: Normal rate. Pulses: Normal pulses. Pulmonary: Effort: Pulmonary effort is normal. Breath sounds: Normal breath sounds. Abdominal: Palpations: Abdomen is soft. Musculoskeletal: General: Normal range of motion. Neurological: General: No focal deficit present. Mental Status: She is alert and oriented to person, place, and time. Psychiatric: Mood and Affect: Mood normal. Behavior: Behavior normal. Thought Content: Thought content normal. Judgment: Judgment normal. Vitals and nursing note reviewed. Vitals: Estimated body mass index is 28.62 kg/m?? as calculated from the following: Height as of 03/13/25: 5' 4 . Weight as of this encounter: 166 lb 12 oz. BP: 120/66 Patient's last menstrual period was 01/01/2025. Assessment/Plan ICD-10-CM 1. Third trimester ([facility]) Z34.93 POCT urinalysis dipstick manually resulted 2. 39 weeks gestation of ([facility]) Z3A.39 Assessment/Plan Return OB: Patient presents today for a routine obstetrics appointment. Patient is currently 39w1d . Patient states she is doing well but has complaints of being tired due to current . Patient has verbalizes frequent movement. labor precautions was discussed/given and patient was instructed to perform kick counts three times a day. Orders Placed This Encounter Procedures POCT urinalysis dipstick manually resulted Follow Up: Patient is to return to office in 1 week for routine OB appointment. Documented by KATHY Carranza on behalf of: KATHY Carranza documented in this encounter Plan of Treatment DateTypeDepartmentCare Team (Latest Contact Info)Jubyzdqhatn31/15/2025 9:00 AM ESTRoutine [facility] [place] [facility] [address] [facility] [place] [phone] Diaz Mathis DO [address] [facility] [place] [address] documented as of this encounter Procedures Procedure NamePriorityDate/TimeAssociated DiagnosisCommentsPOCT URINALYSIS OZCSYFOVLqvriue11/08/2025 10:54 AM EST Third trimester ([facility]) documented in this encounter Results * POCT urinalysis dipstick manually resulted (10/02/2025 10:54 AM EST)Component ValueRef RangeTest MethodAnalysis TimePerformed AtPathologist SignatureColor, UAYellowClarity, UAClearGlucose, UANegativeNegative - 2000(110) ++++ mg/dL Bilirubin, UANegativeNegative - 4(70) +++ mg/dLKetones, UANegativeNegative - 160(16) ++++ mg/dLSpec Grav, UA1.0101 - 1.03Blood, UANegativeNegative - 50 Ortega/mcLpH, UA6.05 - 9Protein, UANegativeNegative - 2000(20) ++++ mg/dL Urobilinogen, UA0.20.2 - 12 mg/dLLeukocytes, UANegativeNegative - 500+++ Fidencio/mcLNitrite, UANegativeNegative - PositiveSpecimen (Source)Anatomical Location / LateralityCollection Method / VolumeCollection TimeReceived Time Urine10/02/2025 10:54 AM EST Narrative Authorizing ProviderResult TypeResult StatusLewisGale Hospital [facility] TEST ENTER/EDIT ORDERABLESFinal Result documented in this encounter Visit Diagnoses Diagnosis Third trimester ([facility]) state, incidental 39 weeks gestation of ([facility]) documented in this encounter Care Teams Team MemberRelationshipSpecialtyStart DateEnd Date María Scales MD [address] [place] [address] PCP - GeneralFamily Medicine03/03/23 Heydi Meyer MD, IBCLC [address] [place] [address] Family Hehwqpxe19/18/23documented as of this encounter
--- OUTSIDE RECORDS SUMMARY | 2025-10-08 22:59 | XMS_ITS | Encounter Summary ---
Author Organization [facility] Address [address] [facility] [place] [address] Care Team Providers Care Biological Plant Operator Name Role Phone María Scales MD Primary Care Provider [phone] Heydi Meyer MD, IBCLC Unavailable +- [phone] Encounter Details DateTypeDepartmentCare Team (Latest Contact Info)Kooumzvvalo44/04/2025amboo flowsheet [facility] [address] [place] [address] Diaz Mathis DO [address] [place], [facility] Social History Tobacco UseTypesPacks/DayYears UsedDateSmoking Tobacco: NeverSmokeless Tobacco: NeverAlcohol UseStandard Drinks/WeekCommentsNever0 (1 standard drink = 0.6 oz pure alcohol)caffeine intake : noneEstimated Date of DeliveryCommentsYes 5Based on last menstrual period of 01/01/2025Sex and Gender Information ValueDate RecordedSex Assigned at BirthNot on fileLegal TffTfawpp66/15/2023 7:39 PM EDTGender OytbwvfmEgjekw61/15/2023 7:39 PM EDTSexual OrientationNot on file documented as of this encounter Plan of Treatment DateTypeDepartmentCare Team (Latest Contact Info)Lishghcomhk87/15/2025 9:00 AM ESTRoutine [facility] [address] [facility] [place] [address] Diaz Mathis DO [address] [place] [address] documented as of this encounter Visit Diagnoses Not on filedocumented in this encounter Care Teams Team MemberRelationshipSpecialtyStart DateEnd Date María Scales MD [address] [place] [address] PCP - GeneralFamily Medicine03/03/23 Heydi Meyer MD, IBCLC [address] [place] [address] Family Aineksna85/18/23documented as of this encounter
--- OUTSIDE RECORDS SUMMARY | 2025-10-08 22:59 | XMS_ITS | Clinical Summary ---
Author Organization [facility] Address [address] [place] [id number] Care Team Providers Care Geophysical Support Specialist Name Role Phone María Scales MD Primary Care Provider + [phone] Allergies Active AllergyReactionsCriticalityNoted PcjhMbcmtlxeQafkjgehhaVixbkqfs31/13/2017 Throat swells up Medications MedicationSigDispense QuantityRefillsLast FilledStart DateEnd DateStatus ASCORBIC ACID/VITAMIN E/BIOTIN (HAIR, SKIN, NAILS WITH BIOTIN ORAL) Indications:DysuriaTake by mouth once daily.Active levonorgestrel (MIRENA) 20 mcg/24 hours (5 yrs) 52 mg IUD 1 Each by INTRAUTERINE route one time only.Active vitamin B complex (B COMPLEX 1 ORAL) Take by mouth.Active Zinc 50 mg tab Take by mouth.Active omega 7-ymz-yss-fish oil (FISH OIL) 100-160-1,000 mg cap Take by mouth.Active phenazopyridine (PYRIDIUM) 200 mg tablet Take 1 tablet by mouth three times a day as needed. 6 tablet 5Active Active Problems ProblemNoted DateDiagnosed DateMigraine with aura07/01/2022 Assessment & Plan (07/01/2022 2:02 PM EDT): Assessment: states has migraines 1- 2 times weekly. She was given a PRN medication but cant remember name Vvtpafguhlyh52/06/2022 Assessment & Plan (07/01/2022 2:45 PM EDT): Assessment: Hx of palpations states had negative cardiac work up at [facility]- records reviewed andscanned Post-operative nausea and gopoiibx28/06/2022 Assessment & Plan (07/01/2022 2:03 PM EDT): Assessment: states she vomits after every surgery - request pre-op medications Immunizations ImmunizationAdministration DatesNext DueHaemophilus influenzae b (HbOC) vaccine, 4-dose series (HIBTITER)06/02/1997diphtheria tetanus pertussis (DTaP) vaccine, unspecified lxytopwyepx17/31/2002,06/02/1997diphtheria tetanus pertussis- Haemophilus influenzae b (DTP-Hib) vaccine (TETRAMUNE)05/10/1996,03/07/1996, 1995hepatitis B (HepB) vaccine, 3-dose series, age 0 yr - 19 yr (ENGERIX B-PEDS, RECOMBIVAX HB-PEDS)05/10/1996,1995,1995measles mumps rubella (MMR) vaccine (M-M-R II, PRIORIX)06/24/2001,11/18/1996novel influenza (B8Z6-88) vaccine, live, nasal09/03/2009poliovirus (IPV) vaccine, inactivated (IPOL) [...] RecordedNational Score (1-100), lower number is lower zxqs758811/14/2024State Score (1-10), lower number is lower lbwi394Data from: https://www.neighborhoodatlas.[facility]/. Last address used for [address]/14/2024CommentsNoSex and Gender Information ValueDate RecordedSex Assigned at BirthNot on fileLegal HlqJhmlyx18/10/2017 2:56 PM ESTGender IdentityNot on fileSexual OrientationNot on file Last Filed Vital Signs Vital SignReadingTime TakenCommentsBlood Sdgfogsw154/71011/10/2024 1:59 PM EST Aoolr236611/10/2024 1:59 PM XGIEkkhsjbulcz31.1 ??C (98.8 ??F)11/10/2024 1:59 PM ESTRespiratory Ptkl039011/10/2024 1:59 PM ESTOxygen Hizwmiumdh384%11/10/2024 1:59 PM ESTInhaled Oxygen Concentration--Qwhejp91.1 kg (128 lb)07/01/2022 1:36 PM EDT Rwlvyd190.6 cm (5' 4 )07/01/2022 1:36 PM EDTBody Mass Index21.9707/01/2022 1:36 PM EDT Plan of Treatment Health MaintenanceDue DateLast DoneCommentsAnxiety Xtsvslexq51/27/2013Depression Ophrjntkm94/27/2013HIV Koegzswlu01/27/2013Hepatitis C Nzkxewxwl08/27/2013 Cervical Cancer Syougytwq78/27/2016HPV Vaccine (1 - 3-dose SCDM series) 2022ovid-19 Vaccine ( season)2025Influenza Vaccine (#1) /06/2009DTaP,Tdap,Td Vaccine (8 - Td or Tdap), 02/07/2017, 11/25/2001, Additional history existsHepatitis B VaccineCompleted 05/10/1996, 1995, 1995 Insurance Care Teams Team MemberRelationshipSpecialtyStart DateEnd Date María Scales MD [address] [place] [address] PCP - GeneralFamily Medicine07/01/22
--- OUTSIDE RECORDS SUMMARY | 2025-10-08 22:59 | XMS_ITS | Encounter Summary ---
Author Organization [facility] Address [address] [facility] [address] Care Team Providers Care Mid Level Business Analyst Name Role Phone María Scales MD Primary Care Provider [phone] Heydi Meyer MD, IBCLC Unavailable +- [phone] Encounter Details DateTypeDepartmentCare Team (Latest Contact Info)Xktbpnsooeu63/08/2025amboo flowsheet LACY ESQUIVEL [address] [place] [address] Melba Goff PA [address] [place], [facility] Social History Tobacco UseTypesPacks/DayYears UsedDateSmoking Tobacco: NeverSmokeless Tobacco: NeverAlcohol UseStandard Drinks/WeekCommentsNever0 (1 standard drink = 0.6 oz pure alcohol)caffeine intake : noneEstimated Date of DeliveryCommentsYes 5Based on last menstrual period of 01/01/2025Sex and Gender Information ValueDate RecordedSex Assigned at BirthNot on fileLegal SysXyvzvv00/15/2023 7:39 PM EDTGender GhwyxyzyWkundu69/15/2023 7:39 PM EDTSexual OrientationNot on file documented as of this encounter Plan of Treatment DateTypeDepartmentCare Team (Latest Contact Info)Lwfwkhjukzm11/15/2025 9:00 AM ESTRoutine [facility] Lonnie SEGOVIAN [address] [place] [address] Diaz Mathis DO [address] David [place], [facility]11 documented as of this encounter Visit Diagnoses Not on filedocumented in this encounter Care Teams Team MemberRelationshipSpecialtyStart DateEnd Date María Scales MD [address] [place], [place] [id number] PCP - GeneralFamily Medicine03/03/23 Heydi Meyer MD, IBCLC [address] [place] [address] Family Lutdnkbc49/18/23documented as of this encounter
--- OUTSIDE RECORDS SUMMARY | 2025-10-08 22:59 | XMS_ITS | Clinical Summary ---
Author Organization [facility] Address [address] [place] [address] Care Team Providers Care Patent Leather Sorter Name Role Phone María Scales MD Primary Care Provider Heydi Meyer MD, IBCLC Unavailable [phone] Allergies Active AllergyReactionsCriticalityNoted GsfkFfhxkekdNmpleurgtUojotymj45/09/2023 Other Reaction(s): Swelling CephalexinAnaphylaxis,UlmradzaEhem40/12/2017 Throat swells up Other Reaction(s): face swelling, Swelling of Lip/Tongue/Throat, Swelling of Lip/Tongue/Throat, anaphylaxis, Unknown Other Reaction(s): Swelling of Lip/Tongue/Throat, anaphylaxis IznnrayAbaox71/22/2024Hazelnut (Filbert)10/27/2024 Other Reaction(s): hives SmgnzibjklhvnFkuxfvos39/20/2025 Medications MedicationSigDispense QuantityRefillsLast FilledStart DateEnd DateStatus Vit-Fe Fumarate-FA ( Vitamins) 28-0.8 MG tablet Indications:, unspecified gestational age ([facility])Take 1 tablet by mouth Daily 30 tablet 1107/14/885944ctive cyanocobalamin (Vitamin B-12) 50 MCG tablet Take 50 mcg by mouth in the morning.09/28/2025Discontinued omeprazole (PriLOSEC) [address] capsule Indications:Gastroesophageal Reflux Disease,HeartburnTake 1 capsule (20 mg) by mouth in the morning. Take before meals. Do not crush or chew. 30 capsule 311//33335611/29/2024Discontinued Active Problems ProblemNoted DateDiagnosed DateOSA (obstructive sleep apnea)06/06/2024 Psychophysiological pqxbsomy24/18/2023 Assessment & Plan (10/12/2023 12:51 PM EST): Likely secondary to anxiety and panic disorder. See below. We did review sleep hygiene and supplements that may help with insomnia, including magnesium, melatonin, Ashwaganda. No clinical sign of obstructive sleep apnea Lbrivggeihk83/26/2023nxiety and cchjcisczd41/26/2023nxiety disorder, eerpiubitat34/26/2023AD (generalized anxiety disorder)07/21/2023 Assessment & Plan (10/12/2023 [...] Attention deficit hyperactivity disorder (ADHD), combined type07/21/2023 Sbtaapivpfbh38/26/7547Zcsjycbmzrrxm88/26/2023Female infertility associated with qimnsejfbfr13/26/2023Fibrocystic breast, right07/21/2023Heavy menstrual bleeding 07/21/2023Intranasal mass07/21/2023Major depressive disorder, single episode, feynnjhcaif55/26/2023Migraine without aura and without status migrainosus, not idevcltwqur40/26/2023Moderate episode of recurrent major depressive disorder 07/21/2023Nasal qjomsaspg51/26/2023Raynaud's phenomenon without gangrene 07/21/2023Migraine with aura07/01/2022 Overview (07/21/2023): Last Assessment & Plan: Assessment: states has migraines 1- 2 times weekly. She was given a PRN medication but cant remember name Rzowttstxene11/06/2022 Overview (07/21/2023): Last Assessment & Plan: Assessment: Hx of palpations states had negative cardiac work up at [facility]- records reviewed and scanned Post-operative nausea and /06/2022 Overview (07/21/2023): Last Assessment & Plan: Assessment: states she vomits after every surgery - request pre-op medications Estimated Date of OzuoanboLhkjalhgHaf39/14/2025Based on last menstrual period of 01/01/2025 Encounters DateTypeDepartmentCare TholYnwszbiwcgi56/10/2025Telephone [facility] [place] [place] [address] Saloni Ortega MA 10/02/2025 10:30 AM ESTRoutine [facility] [place] [address] Melba Goff PA Third trimester ([facility]); 39 weeks gestation of ([facility])5Bamboo flowsheet [facility] [place] [address] Melba Goff PA 09/28/2025 10:40 AM ESTRoutine [facility] [place] [address] Rosina Mathis DO 38 weeks gestation of ([facility]); Third trimester ([facility]); Heartburn during in third trimester ([facility])5Bamboo flowsheet [facility] [place] [place] [address] Rosina Mathis, DO 09/18/2025 10:40 AM ESTRoutine [facility] [place] [facility] [address] [place] [phone] Rosina Mathis, DO Third trimester ([facility]); 37 weeks gestation of ([facility])5Bamboo flowsheet [facility] [place] [facility] [address] [place] [place] [address] Rosina Mathis, DO 09/11/2025 10:20 AM ESTRoutine [facility] [place] [facility] [address] [place] [place] [phone] Melba Goff, PA Third trimester ([facility]); 36 weeks gestation of ([facility]); Heartburn during in third trimester ([facility])5Clinisync Result Encounter [facility]OMS External Department Unsolicited Melba Goff PA 09/11/2025amboo flowsheet [facility] [place] [facility] [address] [facility] [place] [address] Melba Goff PA 09/04/2025 11:20 AM ESTRoutine [facility] [address] [facility] [place] [phone] Rosina Mathis, DO Third trimester ([facility]); 35 weeks gestation of ([facility])5Clinisync Result Encounter [facility]OMS External Department Unsolicited Rosina Mathis, DO 09/04/2025amboo flowsheet [facility] [address] [place] [place] [address] Rosina Mathis, DO 5Clinisync Result Encounter NOMS External Department Unsolicited Rosina Mathis, DO 08/23/2025Telephone [facility] [place] [facility] [address] [facility] [place] [address] Rosina Mathis, 08/22/2025 10:10 AM EDTRoutine [facility] [place] [facility] [address] [facility] [place] [address] Rosina Mathis, DO Excessive growth affecting management of in third trimester, single or unspecified fetus ([facility]) (Primary Dx); Third trimester ([facility]); 33 weeks gestation of ([facility])08/22/2025amboo flowsheet [facility] [address] [place] [place] [address] Rosina Mathis, 08/09/2025 2:30 PM EDTRoutine [facility] [place] [facility] [address] [place] [place] [address] Rosina Mathis, Third trimester ([facility]); 31 weeks gestation of ([facility])08/09/2025amboo flowsheet [facility] [place] [facility] [address] [place] [place] [address] Rosina Mathis, DO 08/07/2025Telephone [facility] [place] [facility] [address] [place] [address] Rosina Mathis, DO 5Clinisync Result Encounter NOMS External Department Unsolicited Rosina Mathis, DO 08/02/2025linisync Result Encounter NOMS External Department Unsolicited Rosina Mathis, DO 08/02/2025Telephone [facility] [address] [facility] [place] [address] Salnoi Ortega MA 07/24/2025bstract [facility] [address] [place] [place] [address] Kellee Whipple MA 07/19/2025 11:20 AM EDTRoutine [facility] [address] [place] [address] Rosina Mathis DO Third trimester ([facility]); 28 weeks gestation of ([facility]); size inconsistent with dates ([facility])5Bamboo flowsheet [facility] [address] [facility] [place] [place] [address] Rosina Mathis DO from Last 3 Months Immunizations ImmunizationAdministration DatesNext DueDTP / HiB05/10/1996,03/07/1996, 1995DTaP, Ukdpzlmelyg32/31/2002,06/02/1997Hep B, Adolescent or Pediatric 05/10/1996,1995,1995Hib (HbOC)06/02/1997IPV06/24/2001MMR06/24/2001, 11/18/1996Novel Knjcejcdg-E4D9-67, nasal09/03/2009OPV06/02/1997,05/10/1996, 03/07/1996,1995Tdap02/10/2018,02/07/2017 Family History Medical HistoryRelationNameCommentsHeart diseaseBrother1 [...] ValueDate RecordedSex Assigned at BirthNot on fileLegal WzgDkgbak87/15/2023 7:39 PM EDTGender OkghwvjiCugazk85/15/2023 7:39 PM EDTSexual OrientationNot on file Last Filed Vital Signs Vital SignReadingTime TakenCommentsBlood Weikpgsd297/6610/02/2025 10:46 AM EST Aecai4411/19/2025 2:47 PM BYJKerbhsztdtj17.8 ??C (96.5 ??F)03/13/2025 2:47 PM EDTRespiratory Xyvh527503/13/2025 2:47 PM EDTOxygen Hqllqytrmx93%03/13/2025 2:47 PM EDTInhaled Oxygen Concentration--Hvtcdk97.6 kg (166 lb 12 oz)10/02/2025 10:46 AM LYGPndheb152.6 cm (5' 4 )03/13/2025 2:47 PM EDTBody Mass Index28.62003/13/2025 2:47 PM EDT Plan of Treatment DateTypeDepartmentCare Team (Latest Contact Info)Sgfjhdlczlm06/15/2025 9:00 AM ESTRoutine [facility] [address] [facility] [place] [phone] Rosina Mathis DO [address] [facility] [address] [place], [place] [phone] Health MaintenanceDue DateLast DoneCommentsPneumococcal Vaccine: Pediatrics (0 to 5 Years) and At-Risk Patients (6 to 64 Years) (1 of 2 - PCV)2014COVID- 19 Vaccine (1 - 2024- season)2025Influenza Vaccine (#1)2025 09/29/2018 Procedures Procedure NamePriorityDate/TimeAssociated DiagnosisCommentsPOCT URINALYSIS ZBCLMMLRPcyjxws81/08/2025 10:54 AM EST Third trimester ([facility]) POCT URINALYSIS MSPNDTPRFhktknb56/04/2025 11:03 AM EST 38 weeks gestation of ([facility]) Third trimester ([facility]) POCT URINALYSIS YSAVHVERWvmphle03/24/2025 11:11 AM EST Third trimester ([facility]) POCT URINALYSIS OCSCUSFYGbswrdb05/17/2025 10:46 AM EST 36 weeks gestation of ([facility]) STREP GP B CULTURE+USLHIiyosnu75/17/2025 10:31 AM EST US OB SGWGMP9509/04/2025 11:44 AM EST POCT URINALYSIS RHRXGVUIOdfzcjk21/10/2025 11:04 AM EST Third trimester ([facility]) US OB BPP W NON-IQORSD1408/28/2025 10:04 AM EST POCT URINALYSIS STRGZDASGwmzetn51/28/2025 10:53 AM EDT Third trimester ([facility]) POCT URINALYSIS SUOFSYWPVoaymci84/15/2025 2:50 PM EDT Third trimester ([facility]) US OB OUTXRXCD18/08/2025 11:30 AM EDT US OB XDPJCF3608/02/2025 11:30 AM EDT POCT URINALYSIS BNHHRLILGjdhnux21/24/2025 11:47 AM EDT Third trimester ([facility]) from Last 3 Months Results * POCT urinalysis dipstick manually resulted (10/02/2025 10:54 AM EST) Only the most recent of8 resultswithin the time period is included. ComponentValueRef [...] Location / LateralityCollection Method / VolumeCollection TimeReceived IkfvRlyiv62/08/2025 10:54 AM EST Narrative Authorizing ProviderResult TypeResult StatusHospital Corporation of America TEST ENTER/EDIT ORDERABLESFinal Result * STREP GP B CULTURE+RFLX (09/11/2025 10:31 AM EST)ComponentValueRef RangeTest MethodAnalysis TimePerformed AtPathologist SignatureSTREP GP B CULTURE+RFLX ??Strep Gp B Culture+Rflx TBHSTREP GP B CULTURE+RFLXNegativeTBHSTREP GP B CULTURE+RFLXCenters for Disease Control and Prevention (CDC) andTBHSTREP GP B CULTURE+RFLXAmerican Congress of Obstetricians and GynecologistsTBHSTREP GP B CULTURE+RFLX(ACOG) guidelines for prevention of group BTBHSTREP GP B CULTURE+RFLXstreptococcal (GBS) disease specify co-collection ofTBHSTREP GP B CULTURE+RFLXa vaginal and rectal swab specimen to maximizeTBHSTREP GP B CULTURE+RFLXsensitivity of GBS detection. Per the CDC and ACOG,TBHSTREP GP B CULTURE+RFLXswabbing both the lower vagina and rectumTBHSTREP GP B CULTURE+RFLXsubstantially increases the yield of detectionTBHSTREP GP B CULTURE+RFLXcompared with sampling the vagina alone.TBH STREP GP B CULTURE+RFLXPenicillin G, ampicillin, or cefazolin are indicatedTBH STREP GP B CULTURE+RFLXfor intrapartum prophylaxis of GBSTBHSTREP GP B CULTURE+RFLXcolonization. Reflex susceptibility testing should beTBHSTREP GP B CULTURE+RFLXperformed prior to use of clindamycin only on GBSTBHSTREP GP B CULTURE+RFLXisolates from penicillin-allergic women who areTBHSTREP GP B CULTURE+RFLXconsidered a high risk for anaphylaxis. Treatment withTBHSTREP GP B CULTURE+RFLXvancomycin without additional testing is warranted ifTBHSTREP GP B CULTURE+RFLXresistance to clindamycin is noted.TBHSTREP GP B CULTURE+RFLX Performed at: [facility] HospitalTBHSTREP GP B CULTURE+[id number] [place], [place] [id number] GP B CULTURE+RFLXLab Director: Keith Logan PhD, Phone: [phone] (Source)Anatomical Location / Laterality Collection Method / VolumeCollection TimeReceived Time09/11/2025 10:31 AM EST 09/11/2025 3:42 PM EST Narrative [facility] - 09/15/2025 4:13 PM EST Authorizing ProviderResult TypeResult StatusAmy Denver [facility] BLOOD ORDERABLES Final ResultPerforming OrganizationAddressCity/State/ZIP CodePhone Number [facility] * US OB GROWTH (09/04/2025 11:44 AM EST) Only the most recent of2 resultswithin the time period is included. Anatomical RegionLateralityModalityOtherSpecimen (Source)Anatomical Location / LateralityCollection Method / VolumeCollection TimeReceived Time09/04/2025 11:44 AM EST Narrative 09/04/2025 11:47 AM EST [facility] ?[address] ? [place] [address] ? Ultrasound Report ? Signed ? Patient: RAJANI SANCHEZ ?MR#: [id number] ?? : 1995 ?Acct:[id number] ?? Age/Sex: 29 / F ?ADM Date: 09/04/25 ?? Loc: RAD ? Attending Dr: Rosina Mathis D.O. ? Ordering Physician: Rosina Mathis D.O. ?? Date of Service: 09/04/25 ?? Procedure(s): US OB growth ?? Accession Number(s): [id number] ? cc: Rosina Mathis D.O.; Physician,Non-Staff MSmitaDSmita ? [facility] ? [address] ? [place] [address] ? Patient Name: ?? RAJANI ??SANCHEZ ? MRN: [facility]:[id number] ? date: 1995 ?Sex: F ?? Assigned Patient Location: RAD ?? Current Patient Location: RAD ?? Accession/Order Number: [id number] ?? Exam Date: 09/04/2025 ??10:11 ?Report Date: 09/04/2025 ??11:44 ? At the request of: ?? ROSINA ??DELFINA ??DO ? Procedure: ??US OB growth ? ULTRASOUND OB GROWTH ? COMPARISON: 08/02/2025 ? CLINICAL DATA: Excessive growth ? There is a single live intrauterine gestation in cephalic presentation. ??There ?? is cardiac and somatic activity with heart rate of 160 bpm. ??The ?? amniotic fluid index measures 10.2 cm which is in low-normal range. ?? The following measurements were obtained: ?? Biparietal diameter ?8.9 cm ?36 weeks 0 days ?76% ?? Head circumference ?32.6 cm ?37 weeks 0 days ?64% ?? Abdominal circumference ?? 32.0 cm ?35 weeks 6 days ?78% ?? Femur length ?6.9 cm ?35 weeks 4 days ?53% ?? The composite ultrasound age based on these measurements is 36 weeks 1 day +/- ?? 2 weeks 4 days. ??The estimated date of delivery is 10/01/2025. ??The estimated ?? weight is 6 lbs. 3 oz. +/- 15 ounces (71%) . ? US/US OB growth ?? IMPRESSION: ? SINGLE LIVE INTRAUTERINE GESTATION WITH ULTRASOUND AGE OF 36 WEEKS 1 DAY. ? Impression dictated by: Sara Galeano M.D. ??09/04/2025 11:44 AM ? Dictation Location: [place] [address] ? Electronically authenticated by: [id number] ??Y ?? Date: 09/04/2025 ??11:44 ? Dictated By: ?Sara Galeano M.D. ? Signed By: ?09/04/251146 ? DD/ ? TD/TT: ? Global Program Director: Procedure Note Radiology, Radiologist, MD - 09/04/2025 [place] [address] Ultrasound Report Signed Patient: ANGEL SANCHEZ#: [id number] : 1995Acct:[id number] Age/Sex: 29 / FADM Date: 09/04/25 Loc: [facility] Attending Dr: Rosina Mathis D.O. Ordering Physician: Rosina Mathis D.O. Date of Service: 09/04/25 Procedure(s): US OB growth Accession Number(s): [id number] cc: Rosina Mathis D.O.; Physician,Non-Staff M.DSmita The [place] [id number] Patient Name: RAJANI SANCHEZ MRN: [id number] date: 1995 Sex: F Assigned Patient Location: [facility] Current Patient Location: [facility] Accession/Order Number: [id number] Exam Date: 09/04/2025 10:11 Report Date: 09/04/2025 11:44 At the request of: ROSINA MATHIS DO Procedure: US OB growth ULTRASOUND OB GROWTH COMPARISON: 08/02/2025 CLINICAL DATA: Excessive growth There is a single live intrauterine gestation in cephalic presentation.There is cardiac and somatic activity with heart rate of 160 bpm. The amniotic fluid index measures 10.2 cm which is in low-normal range. The following measurements were obtained: Biparietal diameter 8.9 cm 36 weeks 0 days 76% Head circumference 32.6 cm 37 weeks 0 days 64% Abdominal circumference 32.0 cm 35 weeks 6 days 78% Femur length 6.9 cm 35 weeks 4 days 53% The composite ultrasound age based on these measurements is 36 weeks 1 day+/- 2 weeks 4 days. The estimated date of delivery is 10/01/2025. Theestimated weight is 6 lbs. 3 oz. +/- 15 ounces (71%) . US/US OB growth IMPRESSION: SINGLE LIVE INTRAUTERINE GESTATION WITH ULTRASOUND AGE OF 36 WEEKS 1 DAY. Impression dictated by: Sara Galeano M.D. 09/04/2025 11:44 AM Dictation Location: [place] [address] Electronically authenticated by: [id number] Y Date: 1:44 Dictated By: Sara Galeano M.D. Signed By:09/04/25 1147 DD/ 1144 TD/TT: Global Program Director: Authorizing ProviderResult TypeResult StatusCorey Delfina ALVAREZLINISYNC IMAGINGFinal Result * US OB BPP W NON-STRESS (08/28/2025 10:04 AM EST)Anatomical Region LateralityModalityOtherSpecimen (Source)Anatomical Location / Laterality Collection Method / VolumeCollection TimeReceived Time08/28/2025 10:04 AM EST Narrative 08/28/2025 10:06 AM EST [facility] ?[address] ? [place] [address] ? Ultrasound Report ? Signed ? Patient: RAJANI SANCHEZ ?MR#: [id number] ?? : 1995 ?Acct:[id number] ?? Age/Sex: 29 / F ?ADM Date: 08/28/25 ?? Loc: US ? Attending Dr: Rosina Mathis D.O. ? Ordering Physician: Rosina Mathis D.O. ?? Date of Service: 08/28/25 ?? Procedure(s): US OB BPP w non-stress ?? Accession Number(s): [id number] ? cc: Rosina Mathis D.O.; Physician,Non-Staff M.D. ? [facility] ? [address] ? [place] [address] ? Patient Name: ?? RAJANI ??LAURA ? MRN: [id number] ? date: 1995 ?Sex: F ?? Assigned Patient Location: [facility] ?? Current Patient Location: ? Accession/Order Number: [id number] ?? Exam Date: 08/28/2025 ??08:58 ?Report Date: [...] Dictation Location: RADIO-PC-02 ? Electronically authenticated by: [id number] ??Y ?? Date: 08/28/2025 ??10:04 ? Dictated By: ?Sara Galeano M.D. ? Signed By: ?08/28/25 1006 ? DD/ 1004 ? TD/TT: ? Global Program Director: Procedure Note Radiology, Radiologist, MD - 08/28/2025 [place] [address] Ultrasound Report Signed Patient: ANGEL SANCHEZ#: [id number] : 1995Acct:[id number] Age/Sex: 29 / FADM Date: 08/28/25 Loc: US Attending Dr: Rosina Mathis D.O. Ordering Physician: Rosina Mathis D.O. Date of Service: 08/28/25 Procedure(s): US OB BPP w non-stress Accession Number(s): [id number] cc: Rosina Mathis D.O.; Physician,Non-Staff M.Giovanni The [address] [address] Patient Name: RAJANI SANCHEZ MRN: [id number] date: 1995 Sex: F Assigned Patient Location: [facility] Current Patient Location: Accession/Order Number: [id number] Exam Date: 08/28/2025 08:58 Report Date: 08/28/2025 10:04 At the request of: ROSINA MATHIS DO Procedure: US OB BPP w non-stress BIOPHYSICAL PROFILE: CLINICAL INFORMATION: EXCESSIVE GROWTH O36.63X0 COMPARISON: 08/02/2025 There is a single live intrauterine gestation in cephalic presentation.The reported gestational age is 34 weeks 1 day. The heart rate ctzyytgg016 beats per minute. FINDINGS: TONE: 1 or [...] [Y] 2/2 SYLVAIN: 17.6 cm Total score: 06/02 US/US OB BPP w non-stress IMPRESSION: NORMAL BIOPHYSICAL PROFILE . Impression dictated by: Sara Galeano M.D. 08/28/2025 10:04 AM Dictation Location: [place] [address] Electronically authenticated by: [id number] Y Date: 0:04 Dictated By: Sara Galeano M.D. Signed By:08/28/25 1006 DD/ 1004 TD/TT: Global Program Director: Authorizing ProviderResult TypeResult StatusCorey Delfina DOCLINISYNC IMAGINGFinal Result * US OB PLACENTA (08/02/2025 11:30 AM EDT)Anatomical RegionLateralityModality OtherSpecimen (Source)Anatomical Location / LateralityCollection Method / VolumeCollection TimeReceived Time08/02/2025 11:30 AM EDT Narrative 08/02/2025 11:33 AM EDT [facility] ?[address] ? [place] [address] ? Ultrasound Report ? Signed ? Patient: SANCHEZ,RAJANI ?MR#: [id number] ?? : 1995 ?Acct:[id number] ?? Age/Sex: 29 / F ?ADM Date: 10/08/25 ?? Loc: US ? Attending Dr: Rosina Mathis D.O. ? Ordering Physician: Rosina Mathis D.O. ?? Date of Service: 08/02/25 ?? Procedure(s): US OB placenta ?? Accession Number(s): [id number] ? cc: Rosina Mathis D.O.; Physician,Non-Staff MJune ? [facility] ? [address] ? [place] [address] ? Patient Name: ?? RAJANI ??SANCHEZ ? MRN: [facility]:[id number] ? date: 1995 ?Sex: F ?? Assigned Patient Location: US ?? Current Patient Location: US ?? Accession/Order Number: [id number] ?? Exam Date: 08/02/2025 ??10:52 ?Report Date: [...] M.D. ??08/02/2025 11:30 AM ? Dictation Location: [place] [address] ? Electronically authenticated by: [id number] ??Y ?? Date: 08/02/2025 ??11:30 ? Dictated By: ?Sara Galeano M.D. ? Signed By: ?08/02/253 ? DD/ 1130 ? TD/TT: ? Global Program Director: Procedure Note Radiology, Radiologist, MD - 08/02/2025 [place] [address] Ultrasound Report Signed Patient: ANGEL SANCHEZ#: [id number] : 1995Acct:[id number] Age/Sex: 29 / FADM Date: 08/02/25 Loc: US Attending Dr: Rosina Mathis D.O. Ordering Physician: Rosina Mathis D.O. Date of Service: 08/02/25 Procedure(s): US OB placenta Accession Number(s): [id number] cc: Rosina Mathis D.O.; Physician,Non-Staff M.DSmita The [address] [address] Patient Name: RAJANI SANCHEZ MRN: [facility]:[id number] date: 1995 Sex: F Assigned Patient Location: US Current Patient Location: US Accession/Order Number: [id number] Exam Date: 08/02/2025 10:52 Report Date: 08/02/2025 [...] Galeano M.D. 08/02/2025 11:30 AM Dictation Location: [place] [address] Electronically authenticated by: [id number] Y Date: 1:30 Dictated By: Sara Galeano M.D. Signed By:08/02/25 1133 DD/ 1130 TD/TT: Global Program Director: Authorizing ProviderResult TypeResult StatusCorey Delfina DOCLINISYNC IMAGINGFinal Result from Last 3 Months Insurance Care Teams Team MemberRelationshipSpecialtyStart DateEnd Date María Scales MD [address] [place] [address] PCP - GeneralFamily Medicine03/03/23 Heydi Meyer MD, IBCLC [address], [place] [id number] Family Blclajts06/18/23
--- OUTSIDE RECORDS SUMMARY | 2025-10-08 22:59 | XMS_ITS | Encounter Summary ---
Author Organization [facility] Address [address] [place] [address] Care Team Providers Care Jack Winder Name Role Phone María Scales MD Primary Care Provider + [phone] Heydi Meyer MD, IBCLC Unavailable +[phone] Encounter Details DateTypeDepartmentCare Team (Latest Contact Info)Rupdarxefxj44/10/2025Telephone [facility] [address] [facility] [place] [place] [phone] Saloni Ortega MA [address] [place] [address] Social History Tobacco UseTypesPacks/DayYears UsedDateSmoking Tobacco: NeverSmokeless Tobacco: NeverAlcohol UseStandard Drinks/WeekCommentsNever0 (1 standard drink = 0.6 oz pure alcohol)caffeine intake : noneEstimated Date of DeliveryCommentsYes 5Based on last menstrual period of 01/01/2025Sex and Gender Information ValueDate RecordedSex Assigned at BirthNot on fileLegal YktDkqmti59/15/2023 7:39 PM EDTGender YriijuwpTmrfbp17/15/2023 7:39 PM EDTSexual OrientationNot on file documented as of this encounter Miscellaneous Notes * Telephone Encounter - Saloni Ortega MA - 10/04/2025 11:30 AM EST Pt called unsure if her water broke or if its just maybe urine. Pt wanted to know how it would lookand feel? Pt has had other children and stated she has never experienced her water ever breaking with those. So, she is unsure of what is going on since her baby is really low. Pt is 39 weeks and 3 days today. I advised pt that I can't say if in fact her water has broken over the phone. Advised pt to go the hospital and get checked out to make sure. PVU. documented in this encounter Plan of Treatment DateTypeDepartmentCare Team (Latest Contact Info)Cuornwgxoml73/15/2025 9:00 AM ESTRoutine [facility] [address] [place] [address] Diaz Mathis, [address] [place] [address] documented as of this encounter Visit Diagnoses Not on filedocumented in this encounter Care Teams Team MemberRelationshipSpecialtyStart DateEnd Date María Scales MD [address] [place] [address] PCP - GeneralFamily Medicine03/03/23 Heydi Meyer MD, IBCLC [address] [place] [address] Family Wsurstye50/18/23documented as of this encounter
--- OUTSIDE RECORDS SUMMARY | 2025-10-08 23:00 | XMS_ITS | Patient Health Record ---
Author Organization [facility] Address [address] [place] [address] Care Team Providers Care Sludge Filtration Operator Name Role Phone María Scales Primary Care Provider Luis Alberto Amanda Hernandez Isaias Allergies Allergen (clinical drug ingredient) Drug/Non Drug Allergy documented on EMR Reaction Allergy Type Onset Date Status cephalexin Cephalexin face swelling Drug Allergy Active Results Component Value Reference Range Notes Urine Culture and Sensitivit y Reviewed date:10/31/2024 08:11:05 AM Interpretation:Abnormal Performing Lab:QPT, [facility] [address] , [address] [place], [place] [id number] Reggie Morgan MD Notes/Report: 0 Received Date: [id number] CULTURE, URINE, ROUTINE SEE NOTE CULTURE, URINE, ROUTINE susceptibility testing is desired. Comment: Erythromycin and [...] for appropriate screening and management of women. Micro Number: [id number] Test Status: Final Specimen Source: Urine, clean catch Specimen Quality: Adequate Result: 1,000-9,000 CFU/ML of Group B Streptococcus isolated Beta-hemolytic streptococci are predictably susceptible to Penicillin and other beta-lactams. Susceptibility testing not routinely performed. Please contact the laboratory within 3 days if Urinalysis (IH) Reviewed date:10/28/2024 02:48:45 PM Interpretation:Negative [...] Unknown 09/29/2018 Administered vaccinated for 2017 season [id number] Quad PFS (0.5mL Admin) 18 y/o & [...] Notes Diagnosis Streptococcal sore throat (disor donny) (67850275) Strep pharyngitis (J02.0) ActiveconfirmedProblemIrritable bowel syndrome (16544145)IBS (irritable bowel syndrome) (K58.9)ActiveconfirmedProblemEndometriosis (635948624)Endometriosis (N80.9)ActiveconfirmedProblemHistory of respiratory disease (019242041)History of strep pharyngitis (Z87.09)ActiveconfirmedProblemExercise-induced asthma (37112330)Asthma, exercise induced (J45.990)Activeconfirmed Vital Signs Temperature 98.1 degrees Fahrenheit 10/28/2024 Respiratory Rate16 /min10/28/2024lood pressure rruafztgu34 mm Hg10/28/2024 Yfypov99 in10/28/2024lood pressure mm Hg10/28/20243593Dyzovn136 lbs 10/28/2024BMI20.99 kg/m210/28/2024 Encounters Encounter Location Date Provider Diagnosis [address] [place] [address] 10/28/2024 Amanda Posadas Acute UTI N39.0 ; [...] to outside laband patient will receive third republican bill from laboratory. Patient verbalized understanding and [...] go away but then come back. From <[email or web address]& rbp=[id number]> 5Acute vaginitis (ICD-10 - N76.0) Bacterial Vaginosis: Care Instructions material was published Patient advised that [facility] does not have the capacity to complete pelvic exams or send out pelvic swabs for testing. Will need to follow up with GEOPHYSICAL PROSPECTING SURVEYOR or PCP if needing further testing or pelvic exam.For any urgent/emergent signs and symptoms, please seek immediate care at nearest UC/ED. Will send over treatment for BV as patient reports no relief of symptoms after taking flagyl and clindamycin. However, if symptoms do not improve or resolve - she will need to be seen by GEOPHYSICAL PROSPECTING SURVEYOR for further evaluation and management. Bacterial vaginosis [...] help?< img width= 46 alt= src= https://content.healthwise.n et/resources/14.3/en-us/media/interface/kqar-qup-cjhk_vhp.jpg height= 46 >Call your doctor now or [...] - B96.89) Follow up with PCP or GEOPHYSICAL PROSPECTING SURVEYOR for further evaluation and management.10/28/2024 Vaginal discharge (ICD-10 - N89.8)Follow up in the clinic or with PCP as needed 10/28/2024Influenza vaccination declined (ICD-10 - Z28.21) The CDC recommends influenza (flu) vaccine every fall. [facility] provides influenza vaccination for all ages. You [...] your feedback regarding your experience at [facility]. Plan Of Treatment No Information Insurance Providers Payer Name Payer Address Payer Phone Subscriber Number Group Number Insured Name Patient Relationship to Insured Coverage Start Date Coverage End Date [facility] [employer] [place] [employer] [address] [place] [address] [id number] Yaima Callejas - patient is the insured Medical (General) History Medical History History ICD Code IBS (irritable bowel syndrome) K58.9 Endometriosis N80.9 History of strep pharyngitis Z87.09 Asthma, exercise induced J45.990 Surgical History Surgery Date(Month/Year) Elective Colonoscopyage - 12Hospitalization History Reason Date(Month/Year) colonoscopy
[2025-10-08 23:22] LABS: Glucose Urine UA NEGATIVE (NEGATIVE)
[2025-10-08 23:44] VITALS: BP 130/89; PULSE 74; TEMP 36.8
[2025-10-09] VITALS (28 sets, daily range): BP systolic 92–142; BP diastolic 51–87; PULSE 74–193; TEMP 36.6–36.8
[2025-10-09 01:03] LABS: Hematocrit 36.8 % (36.0-48.0); Hemoglobin 12.9 g/dL (12.0-16.0); Mean Corpuscular HGB Conc 35.1 g/dL (29.9-35.2); Mean Corpuscular Hemoglobin 31.8 pg (26.7-34.0); Mean Corpuscular Volume 90.6 fL (81.0-99.0); Platelet Count 184 10^3/uL (150-450); Red Blood Count 4.06 10^6/uL (4.20-5.40); White Blood Count 8.8 10^3/uL (4.0-11.0)
[2025-10-09 01:16] LABS: Cannabinoid Screen Urine NEGATIVE (NEGATIVE); Methamphetamines Screen Urine NEGATIVE (NEGATIVE); Tricyclic Antidepressant Urine NEGATIVE (NEGATIVE)
[2025-10-09] MEDS: 0.9 % SODIUM CHLORIDE 1,000 ML 1000 ML IV (01:30)
[2025-10-09] MEDS: ROPIVACAINE HCL/PF 400 MG/200 ML PREMIX 10 MG EPIDURAL (02:09)
--- NOTE | 2025-10-09 02:11 | PM.OBHP ---
OB - H&P: HPI History of Present Illness Chief complaint: RULE OUT LABOR : 4 Para: 2 Date of last menstrual period: 01/01/2025 Gestational age based on last menstrual period: 40w1d Narrative: 29yo with LMP 01/01/2025 and EDC 10/08/2025 at 40w1d presents in active labor. She has had uncomplicated care since 9 weeks. She has had 2 other term vaginal deliveries. History of Present Dating criteria: LMP confirmed by 2nd trimester US care: good care Ultrasounds: normal mid trimester US (growth was in the 91% at her anatomy ultrasound and her repeat growth ultrasound was normal) Labs Blood type: O (+) positive Rubella: nonimmune RPR/VDLR: nonreactive GBS status: negative HBsAG: negative Narrative: Hep C : neg Hgb A1C = 5.1 1 hr glucola = 144; 3 hr GTT was normal Review of Systems ROS Status of ROS: 10 or more systems reviewed and unremarkable except as noted in history and below [facility] Medical History (Updated 10/09/25 @ 02:10 by RACHNA ALVARADO MD) Vaginal delivery ?O80 - Encounter for full-term uncomplicated delivery (ICD-10) Migraine without aura ?G43.009 - Migraine without aura, not intractable, without status migrainosus (ICD-10) Raynauds phenomenon ?I73.00 - Raynaud's syndrome without gangrene (ICD-10) Depression ?F32.A - Depression, unspecified (ICD-10) ADAL (generalized anxiety disorder) ?F41.1 - Generalized anxiety disorder (ICD-10) Insomnia ?G47.00 - Insomnia, unspecified (ICD-10) MARCIO (obstructive sleep apnea) ?G47.33 - Obstructive sleep apnea (adult) (pediatric) (ICD-10) Endometriosis determined by laparoscopy ?N80.9 - Endometriosis, unspecified (ICD-10) ADHD (attention deficit hyperactivity disorder) ?F90.9 - Attention-deficit hyperactivity disorder, unspecified type (ICD-10) Surgical History (Updated 10/09/25 @ 02:09 by RACHNA ALVARADO MD) Normal cystoscopy [place] teeth extracted ?K08.409 - Partial loss of teeth, unspecified cause, unspecified class (ICD-10) History of elective ?Z98.890 - Other specified postprocedural states (ICD-10) History of laparoscopy ?Z98.890 - Other specified postprocedural states (ICD-10) Lesion of nose excised ?J34.89 - Other specified disorders of nose and nasal sinuses (ICD-10) History of colonoscopy ?Z98.890 - Other specified postprocedural states (ICD-10) Family History (Updated 08/23/25 @ 15:32 by RACHNA ALVARADO MD) Aunt Family history of cancer, Onset Age: 42 Grandfather Family history of cancer Heart disease Family history of stroke Grandmother Family history of cancer Grandfather Heart disease Family history of stroke Grandfather Heart disease Brother Heart disease Social History (Updated 10/09/25 @ 02:07 by RACHNA ALVARADO MD) Smoking status: Never smoker Second hand tobacco smoke exposure: No Non-prescribed substance use: denies use Do you think of yourself as: straight/heterosexual Gender Identity: female Meds Home Medications and Allergies Home Medications ?Medication ?Instructions ?Recorded ?Confirmed ?Type No Known Home Medications 08/28/25 08/28/25 History Allergies Allergy/AdvReac Type Severity Reaction Status Date / Time cephalexin Allergy Severe Anaphylaxis Verified 08/23/25 15:11 metronidazole Allergy Intermediate Headache Verified 08/23/25 15:14 corylus Allergy Severe Hives Uncoded 08/23/25 15:14 Exam Constitutional Vital Signs, click to edit/add: Last Vital Signs Temp 98.3 F 10/08/25 23:44 Pulse 117 H 10/09/25 02:05 BP 112/64 10/09/25 02:05 Documenting provider has reviewed patient's vital signs: yes Common normals: oriented x3 General appearance: in distress (very uncomfortable with her contractions) moderate Eye Common normals: EOMs intact bilaterally Respiratory Common normals: normal respiratory effort and no retractions Common normals: no CVA tenderness OB/external & speculum: external exam normal Manual OB Exam: dilated 8 cm (90% effaced / 0 station) Amniotic Fluid: clear (AROM) Extremity Common normals: no pedal edema Neuro Common normals: oriented x3 Sensorium/orientation: awake and alert Speech: speech normal Psych Thought process: normal thought process Judgement: judgment good Results Labs Labs: Short CBC 10/09/25 Range/Units 00:45 WBC 8.8 (4.0-11.0) 10^3/uL Hgb 12.9 (12.0-16.0) g/dL Hct 36.8 (36.0-48.0) % Plt Count 184 (150-450) 10^3/uL Urine 10/08/25 Range/Units 23:00 Urine Color Lt. yellow (YELLOW) Urine Clarity Clear (CLEAR) Urine pH 6.0 (5.0-9.0) Ur Specific [place] <=1.005 A (1.005-1.025) Urine Protein Negative (NEG/TRACE) mg/dL Urine Glucose (UA) Negative (NEGATIVE) mg/dL OB - A/P Assessment and Plan (1) Active labor at term: Assessment and Plan: Patient is now comfortable with her epidural. Expect .
[2025-10-09] MEDS: 0.9 % SODIUM CHLORIDE 1,000 ML 125 ML IV (02:36)
[2025-10-09] MEDS: OXYTOCIN/0.9 % SODIUM CHLORIDE 20 UNITS/1,000 ML PLAST..BAG 125 UNIT IV (03:49)
--- NOTE | 2025-10-09 04:04 | PM.OBPRCVD ---
Procedure Procedure: 29yo now P3 delivered via over an intact perineum a male in TATYANA VTX presentation with Apgars 9/9 weighing 8lb 14oz. Loose nuchal cord x 1 was reduced on the perineum. Placenta delivered spontaneously. Mom and baby are doing well. EBL 200 ml. Intrapartal events: None Delivery augmentation: rupture of membranes Delivery monitor: external FHT Route of delivery: Episiotomy Description: none L&D Laceration Description: none Estimated blood loss (mL): 200 Anesthesia type: Epidural Disposition: floor Complications: none Delivery date: 10/09/25 Gender: male presentation: vertex (TATYANA) Placental delivery description: Spontaneous cord description: 3 Vessels, Nuchal Cord (x 1), Loose and Reduced heart rate - 1 minute: 100 bpm or Greater respiratory effort - 1 minute: Spontaneous/Strong Cry muscle tone - 1 minute: Active Movement reflex response - 1 minute: Prompt Response color - 1 minute: Bluish Hands or Feet total score - 1 minute: 9 heart rate - 5 minute: 100 bpm or Greater respiratory effort - 5 minute: Spontaneous/Strong Cry muscle tone - 5 minute: Active Movement reflex response - 5 minute: Prompt Response color - 5 minute: Bluish Hands or Feet total score - 5 minute: 9
[2025-10-09] MEDS: IBUPROFEN 600 MG TABLET PO ×3 (05:10→22:33)
[2025-10-10 00:46] VITALS: BP 99/58; PULSE 70; TEMP 36.8
[2025-10-10 06:12] LABS: Hematocrit 35.7 % (36.0-48.0); Hemoglobin 12.1 g/dL (12.0-16.0); Immature Granulocytes Abs Auto 0.02 10^3/uL (0.00-0.03); Immature Granulocytes Pct Auto 0.3 % (0.0-0.5); Lymphocytes Absolute Auto 2.2 10^3/uL (1.2-3.8); Mean Corpuscular HGB Conc 33.9 g/dL (29.9-35.2); Mean Corpuscular Hemoglobin 31.3 pg (26.7-34.0); Mean Corpuscular Volume 92.2 fL (81.0-99.0); Platelet Count 169 10^3/uL (150-450); Red Blood Count 3.87 10^6/uL (4.20-5.40); White Blood Count 7.4 10^3/uL (4.0-11.0)
[2025-10-10 08:16] VITALS: BP 112/67; PULSE 73; TEMP 36.6
[2025-10-10] MEDS: IBUPROFEN 600 MG TABLET PO (08:24)
--- NOTE | 2025-10-10 08:41 | PM.OBPN ---
OB - PN: Subj Subjective Patient comments: no complaints and pain well controlled status: doing well Exam Constitutional Vital Signs, click to edit/add: Last Vital Signs Temp 98.2 F 10/10/25 00:46 Pulse 73 10/10/25 08:16 Resp 16 10/09/25 16:35 BP 112/67 10/10/25 08:16 O2 Del Method Room Air 10/10/25 00:53 Documenting provider has reviewed patient's vital signs: yes Common normals: no apparent distress Respiratory Common normals: normal respiratory effort and clear to auscultation bilaterally Cardio Common normals: regular rate and regular rhythm GI Common normals: Normal to inspection, nondistended, normoactive bowel sounds present Extremity Common normals: no clubbing, cyanosis or edema and no calf tenderness Results Labs Labs: Short CBC 10/10/25 Range/Units 06:01 WBC 7.4 (4.0-11.0) 10^3/uL Hgb 12.1 (12.0-16.0) g/dL Hct 35.7 L (36.0-48.0) % Plt Count 169 (150-450) 10^3/uL Urinary Catheter Management Urinary Catheter Management Urethral: Cath placed during this visit: yes, but has since been removed by the nurse Insertion date: 10/09/25 Insertion time: 02:34 Removal date: 10/09/25 Removal time: 02:40 OB - PN: A/P Assessment and Plan (1) Active labor at term: Plan - Vaginal Delivery day: 1 Plan: routine care, discharge home and follow up 6 weeks Time Spent with Patient Time: Total time spent is greater than 50% in coordination of care (as documented) at patient's floor/unit and/or counseling patient: Total time spent with greater than 50% in coordination of care (as documented) at patient's floor/unit and/or counseling patient: less than 15 minutes
== END 2025-10-10 14:00 | disposition home or self-care (01) | DRG 807 ==
PROVIDERS: Admitting Provider Obstetrics & Gynecology; Visit Provider Obstetrics & Gynecology
DX: O69.81X0 Labor and delivery complicated by cord around neck, without compression, not applicable or unspecified (principal); Z37.0 Single live birth; Z3A.40 40 weeks gestation of pregnancy
CPT/HCPCS: 36415; 51702; 59025; 59050; 59410; 80307; 81003; 85025; 85027; 86850; 86900; 86901; G0378; J2795